=== PATIENT | female | born 1975 | race Caucasian/White ===

== ENCOUNTER → 2016-04-28 | Outpatient (CLI) | payer BC ==
[~2016-04-28] MED LIST: METO1TAB31 PO; MULT-506 PO; RANITAB33 PO
== END | disposition home or self-care (01) ==
LOC: C.PAPS 14:22
PROVIDERS: ATTEND Obstetrics & Gynecology
DX: Z01.419 Encounter for gynecological examination (general) (routine) without abnormal findings (principal)

== ENCOUNTER → 2017-02-09 | Outpatient (CLI) | payer BC ==
[~2017-02-09] MED LIST changes: +METO-478 PO; -METO1TAB31 PO
--- NOTE | 2017-02-09 13:38 | MAMMOGRAPHY REPORT ---
BILATERAL DIGITAL DIAGNOSTIC MAMMOGRAM TOMOSYNTHESIS WITH CAD AND TARGETED BILATERAL ULTRASOUND: 02/09 CLINICAL HISTORY: The patient reports itching involving her right breast which lasted for approximate ly 2 weeks. She was started on a cream and has not had any further itching for approximately one wee k. She also reports generalized fullness of her right breast which has somewhat subsided. She denie s any focal palpable lumps, erythema of the skin, nipple discharge, or other complaints. TECHNIQUE: Breast tomosynthesis in addition to standard 2D mammography was performed. Current study was also evaluated with a Computer Aided Detection (CAD) system. Bilateral CC and MLO 2-D and tomosy nthesis images were obtained. COMPARISON: Comparison is made to exams dated: 11/06/2014 ultrasound, 11/06/2014 mammogram, and 01/24/20 mammogram - [facility]. BREAST COMPOSITION: The tissue of both breasts is heterogeneously dense, which may obscure small mas ses. FINDINGS: There are no suspicious masses, calcifications, or areas of architectural distortion noted in either breast mammographically. There has been no significant interval change compared to prior e xams. An asymmetry is seen within the left superior posterior breast overlying the left pectoralis m uscle, which likely represents normal fibroglandular tissue although ultrasound was performed. Targeted ultrasound was performed of the area of prior right breast itching pointed out by the patien t in the right lower inner quadrant. Sonographically normal tissue is seen in this region, without e vidence of a mass or other suspicious sonographic abnormality. Targeted ultrasound was also performe d of the region of the mammographic asymmetry in the left breast. Normal fibroglandular tissue is se en within the left axillary tail region, which corresponds with the mammographic asymmetry. No suspi cious masses are evident. IMPRESSION: ACR BI-RADS CATEGORY 2: BENIGN, TARGETED ULTRASOUND ACR BI-RADS CATEGORY 2: BENIGN No suspicious mammographic or sonographic abnormality to explain right breast fullness and right leona st itching. There is no mammographic or targeted sonographic evidence of malignancy. Recommend clin ical follow-up for right breast symptoms, and recommend routine bilateral screening mammograms in one year. The patient has been verbally notified of the results. Approximately 10% of breast cancers are not detected with mammography. A negative mammographic report should not delay biopsy if a clinically suggestive mass is present. Fatou Funez M.D. ah/:02/09/2017 11:43:57 [employer]: Krys MARQUES(R)(M), [facility] letter sent: Normal 1/2 BI-RADS Code: ACR BI-RADS Category 2: Benign Ultrasound BI-RADS: ACR BI-RADS Category 2: Benign
== END | disposition home or self-care (01) ==
LOC: C.MAMM 09:24
PROVIDERS: ATTEND Physician Assistant
DX: N64.59 Other signs and symptoms in breast (principal)

== ENCOUNTER → 2017-06-22 | Outpatient (CLI) | payer OTHER | END | disposition home or self-care (01) | LOC: C.PAPS 14:03 | PROVIDERS: ATTEND Obstetrics & Gynecology | DX: Z12.4 Encounter for screening for malignant neoplasm of cervix (principal) ==

== ENCOUNTER 2020-11-14 18:05 | Observation (INO) ==
--- NOTE | 2020-11-14 19:09 | Emergency Department Note ---
Impression & Plan Abdominal pain, Sinus tachycardia, Anxiety ED Provider Note NAME: BRENDON TRINIDAD AGE: 45 SEX: F : 1975 ARRIVES VIA: Walk-In INFORMANT: Patient, ED PROVIDER(S): Khalif Almodovar MD Chief Complaint: Abdominal pain HPI: Patient was seen earlier today due to concern for right lower quadrant pain. This had started around 5-5 30 this morning with associated diarrhea as well as pain that would radiate across the lower abdomen. The patient has not had any nausea or vomiting. Patient denies any chest pains or shortness of breath. The patient was recently seen earlier today where the patient did have blood work completed along with an ultrasound. There was a presumptive hemorrhagic cyst as the patient did have some complex free fluid in the lower abdomen. Blood work had already been obtained earlier today. The patient had a white count of 11.5 with a normal H&H and platelet count. Kidney function was unremarkable. Urinalysis showed blood and ketones. The patient had refused a CAT scan at her prior visit but did return as the patient had worsening pain. Patient did take some Ativan prior to arrival. Patient does state that she has a shellfish allergy but believes that she did have a CAT scan in 2005 with IV contrast which she tolerated without any issues. ROS: See HPI for pertinent positives and negatives. A total of 10 systems were reviewed and otherwise negative. Past medical history: See below Surgical history: See below Social history: See below Physical Exam: GENERAL: Mildly uncomfortable in appearance, NAD, wearing glasses, wearing a mask, non-toxic. Anxious in appearance. EYE EXAM: Normal conjunctiva. PERRL, no anisocoria and EOM's grossly intact w/o pain. NECK: Supple, no nuchal rigidity, no adenopathy, non-tender. No signs of meningismus. LUNGS: Clear to auscultation. Normal chest wall mechanics. HEART: Cardiac and regular, no MRG. ABDOMEN: Abdomen soft, diffuse lower abdominal pain, right lower quadrant tenderness to palpation present, negative obturators and psoas, normo-active bowel sounds, no masses, no rebound or guarding. BACK: No CVA TTP. SKIN: No rashes and no bruising. UPPER EXTREMITIES: Upper extremities are grossly normal. LOWER EXTREMITIES: Grossly normal, no edema. NEURO EXAM: A&O x3, cranial nerves II-XII grossly intact, normal speech, moves all 4 extremities on command w/o issue. Differential diagnoses: Appendicitis, ovarian cyst, ovarian torsion, ectopic , TOA, PID, infections, diverticulitis, UTI, obstruction, mesenteric ischemia, aortic pathology, inflammatory bowel disease, renal colic, PUD, pancreatitis, biliary pathology, hernia, volvulus, constipation, as well as other pathologies. Course: Patient was seen and evaluated the bedside. Full history physical exam was performed. Imaging Studies: CT abdomen pelvis showed concern for prominent tubular bowel loop which could represent terminal ileum versus enlarged appendix. Possible ileus. No abscess but trace fluid noted. Unremarkable uterus. Left 1.4 cm adnexal hypodensity which may be an ovarian cyst. Cardiac monitoring: An order was placed for continuous cardiac monitoring. The monitor shows a rate of 105 with tachycardic and regular rhythm. MDM: Patient was seen due to concern for persistent or worsening abdominal pain. The patient already had blood work completed earlier today. The patient did have an IV established and a CAT scan completed. CAT scan did show concern for possible appendicitis versus enlargement of the terminal ileum. Patient was reassessed and patient still has right lower quadrant pain. Given this I did speak the on- call general surgery team Thomas Felix PA-C. She was evaluated. Mefoxin was ordered. The patient was admitted to the surgical service. Covid negative. Past Med/Surg History Medical History Anxiety Classic migraine with aura Endometrioma Female infertility Ovarian cyst right, seen since 2017, likely endometrioma Supraventricular tachycardia Thyroid nodule Surgical History History of laparoscopy diagnostic gynecologic with biopsy History of oral surgery tooth extraction History of tonsillectomy Family History Father Squamous cell carcinoma Grandmother (Maternal) Colorectal cancer Mother Endometriosis Basal cell adenocarcinoma Grandfather (Maternal) Colorectal cancer Aunt Breast cancer paternal Grandmother (Paternal) Breast cancer Denies family history of Ovarian cancer Social History Smoking Status: Never smoker Hx Alcohol Use: No Feels Safe at Home: Yes Allergies Allergies Allergy/AdvReac Type Severity Reaction Status Date / Time azithromycin Allergy Mild Hives Verified 11/14/20 14:05 Penicillins Allergy Mild HIVES Verified 11/14/20 14:05 lidocaine Allergy Unknown Unknown Verified 11/14/20 14:05 mepivacaine Allergy Unknown TACHYCARDIA Verified 11/14/20 14:05 ,SOB shellfish derived Allergy Unknown Unknown Verified 11/14/20 14:05 Home Meds Home Medications Medication Instructions Recorded Confirmed fluticasone propionate 50 1 spray INTNAS DAILY 05/27/19 11/14/20 mcg/actuation nasal spray,suspension lorazepam 0.5 mg tablet 0.5 mg PO HS PRN 05/27/19 11/14/20 metoprolol succinate 25 mg 25 mg PO UD 05/27/19 11/14/20 tablet,extended release 24 hr multivitamin (Daily Multi-Vitamin) 1 tab PO DAILY 05/27/19 11/14/20 famotidine 20 mg tablet (Pepcid) 20 mg PO DAILY 11/14/20 11/14/20 ferrous sulfate 142 mg (45 mg 142 mg PO DAILY 11/14/20 11/14/20 iron) tablet,extended release (Slow Fe) simethicone 80 mg chewable tablet 80 mg PO BID PRN 11/14/20 11/14/20 Results & Data (ED) Vital Signs Vital Signs - 24 hr 11/14/20 18:09 11/14/20 19:42 11/14/20 22:07 Temperature 36.7 C Temperature Source Temporal Artery Scan Pulse Rate 115 H Pulse Rate [Right Finger] 113 H Pulse Rate from SpO2 Sensor Respiratory Rate 18 18 Respiratory Effort / Characteristics Non-Labored Spontaneous Respiratory Depth Normal Blood Pressure 123/84 Blood Pressure [Right Arm] 127/81 Blood Pressure Mean 97 Blood Pressure Mean [Right Arm] 96 Blood Pressure Position Sitting Blood Pressure Position [Right Arm] Sitting Pulse Oximetry 98 98 100 Oxygen Delivery Method Room Air Room Air Room Air Sepsis Recent Fever Within 48 Hours No Sepsis New/Unexplained Change in Mental Status N/A Sepsis Action Taken by Nursing No Action Required 11/15/20 00:29 Temperature Temperature Source Pulse Rate 110 H Pulse Rate [Right Finger] Pulse Rate from SpO2 Sensor 110 H Respiratory Rate 24 Respiratory Effort / Characteristics Respiratory Depth Blood Pressure 128/84 Blood Pressure [Right Arm] Blood Pressure Mean 98 Blood Pressure Mean [Right Arm] Blood Pressure Position Blood Pressure Position [Right Arm] Pulse Oximetry 99 Oxygen Delivery Method Room Air Sepsis Recent Fever Within 48 Hours Sepsis New/Unexplained Change in Mental Status Sepsis Action Taken by Longterm Medications Current Medication List: was personally reviewed by me Laboratory Data Attestation: I reviewed the patient's lab results. Lab Results 11/15/20 Range/Units 00:00 COVID-19 Eval Order Covid19 at [facility] Administered Medications Discontinued Medications Sodium Chloride (Nss 1000ml) 1,000 mls @ 999 mls/hr IV .Q1H1M ONE Stop: 11/14/20 20:33 Last Infusion: 11/14/20 20:42 Dose: 0 mls/hr Documented by: [id number] Admin: 11/14/20 19:41 Dose: 999 mls/hr Documented by: [id number] Lorazepam (Ativan) 1 mg in 2 mls @ 2 mls/min IV NOW STA Stop: 11/14/20 20:26 Last Admin: 11/14/20 21:10 Dose: 2 mls/min Documented by: [id number] Cefoxitin Sodium (Mefoxin) 2,000 mg in 60 mls @ 100 mls/hr IV NOW STA Stop: 11/15/20 00:04 Last Admin: 11/15/20 00:24 Dose: 100 mls/hr Documented by: [id number] Ioversol (Optiray 320 100ml) 93 ml IV ONCE ONE Stop: 11/14/20 22:07 Last Admin: 11/14/20 22:07 Dose: 93 ml Documented by: [id number] Discharge Plan Visit Data Chief Complaint: Fever Stated Complaint: ABD PAIN, FEVER, SEEN EARLIER TODAY ED Provider: Khalif Almodovar Discharge Problem: Abdominal pain, Sinus tachycardia, Anxiety Forms Stand Alone Forms: My [facility] [employer] Prescriptions Prescriptions: No Action fluticasone propionate 50 mcg/actuation spray,suspension 1 spray INTNAS DAILY RF: 0 metoprolol succinate 25 mg tablet extended release 24 hr 25 mg PO UD RF: 0 lorazepam 0.5 mg tablet 0.5 mg PO HS PRN (Reason: Insomnia) RF: 0 multivitamin [Daily Multi-Vitamin] Tablet 1 tab PO DAILY RF: 0 famotidine [Pepcid] 20 mg Tablet 20 mg PO DAILY RF: 0 simethicone [Gas-X] 80 mg Tablet,Chewable 80 mg PO BID PRN (Reason: Gi Upset) RF: 0 Slow Fe 142 mg (45 mg iron) Tablet Extended Release 142 mg PO DAILY RF: 0 Referrals Referrals: Martin Brown, [Primary Care Provider] -
[2020-11-14] MEDS ORDERED: SODIUM CHLORIDE 0.9% 1000ML 1,000 ML IV ONE (19:33)
[2020-11-14] MEDS ORDERED: LORazepam 1 MG/2 ML VIAL IV STA (20:25)
[2020-11-14] MEDS ORDERED: OPTIRAY 320 100ml IV ONE (22:06)
[2020-11-14] MEDS ORDERED: cefOXitin 2,000 MG/60 ML BAG IV STA (23:29)
--- NOTE | 2020-11-15 00:30 | History & Physical Report ---
Date of Service November 15, 2020 Assessment & Plan (1) Abdominal pain: Plan: The cause of patient's abdominal pain has not been ascertained. Certainly this is to be related to a ruptured ovarian cyst or acute appendicitis is on the differential. I discussed the case with my attending Dr. Melvin Ramirez we will proceed as follows: Admit patient to the hospital with plans on performing a diagnostic laparoscopy and possible appendectomy in the morning. I have outlined the risks, benefits, alternatives with the patient and she is agreeable to proceed. Provide analgesics Provide antiemetics Hydration with IV fluids N.p.o. status Administer antibiotics in the form of cefoxitin. The emergency room physician has ordered the first dose of this medication. Patient does note a penicillin allergy which causes rash but she specifically notes that she has taken Keflex in the past and it was able to tolerate this medicine. We will use SCDs for DVT prevention. We will hold chemical means of DVT prevention due to planned surgery Patient be a level 1 full code. History of Present Illness Chief Complaint: Abdominal pain Primary Care Provider: Martin Brown DO This is a 45-year-old female who presented to [facility] secondary abdominal pain. Patient says that the pain began at approximately 5:30 AM on 11/14/2020 which woke her from her sleep. She said the pain was primarily located in the upper abdomen but has since shifted to her lower abdomen most prominent in the right lower quadrant. She says that the pain is worse with certain movements and was exacerbated at times on the trip to the emergency department. She denies any palliative factors and notes that the pain comes and goes. She has not had any nausea or vomiting. She did feel feverish on the trip into the hospital but notes that she has not ever had a documented fever. She notes that the pain comes and goes in waves and when she does get the pain she has diarrhea along with the pain. She denies any hematochezia. Patient does note that she did have prior abdominal surgery in the form of a diagnostic laparoscopy due to endometriosis. Because of the pain the patient did present to the emergency department the morning of 11/14/2020. During this time she had labs including a CBC where her white blood cell count was 12.5. Her hemoglobin, hematocrit, and platelet count were noted to be within the normal range. Patient did have a chemistry profile where her sodium, potassium, BUN, and creatinine were all within normal range. A test was performed and was noted to be negative. Patient also had a urinalysis which was not indicative of infection. Patient also had a transvaginal and pelvic ultrasound that showed small amount of echogenic and complex fluid in the pelvis which was felt to be potentially due to a ruptured cyst. Because of these findings the patient was discharged home. The patient's pain continued as described above so she did represent to the emergency department. In the emergency department the patient had imaging which I independently reviewed. I also independently reviewed the imaging and labs from her previous emergency department visit. A CT scan of the abdomen and pelvis utilizing IV contrast did not identify a normal-appearing appendix. Patient was noted to have a prominent tubular bowel loop in the right pelvis which measured approximately 11 mm. This appeared to be continuous with the cecum and was difficult determine if this represented the terminal ileum versus an enlarged appendix. There is some trace free fluid in the pelvis and cul-de-sac and patient was noted to have a 1.4 cm left adnexal hypodensity. Repeat labs have not been obtained during this ER visit. Covid test has been performed and was noted to be negative. At the time of my interview the patient was resting in bed. She was in no distress. Allergies Allergy/AdvReac Type Severity Reaction Status Date / Time azithromycin Allergy Mild Hives Verified 11/14/20 14:05 Penicillins Allergy Mild HIVES Verified 11/14/20 14:05 lidocaine Allergy Unknown Unknown Verified 11/14/20 14:05 mepivacaine Allergy Unknown TACHYCARDIA Verified 11/14/20 14:05 ,SOB shellfish derived Allergy Unknown Unknown Verified 11/14/20 14:05 Home Medications Medication Instructions Recorded Confirmed Type fluticasone propionate 50 1 spray INTNAS DAILY 05/27/19 11/14/20 History mcg/actuation nasal spray,suspension lorazepam 0.5 mg tablet 0.5 mg PO HS PRN 05/27/19 11/14/20 History metoprolol succinate 25 mg 25 mg PO UD 05/27/19 11/14/20 History tablet,extended release 24 hr multivitamin (Daily Multi-Vitamin) 1 tab PO DAILY 05/27/19 11/14/20 History famotidine 20 mg tablet (Pepcid) 20 mg PO DAILY 11/14/20 11/14/20 History ferrous sulfate 142 mg (45 mg 142 mg PO DAILY 11/14/20 11/14/20 History iron) tablet,extended release (Slow Fe) simethicone 80 mg chewable tablet 80 mg PO BID PRN 11/14/20 11/14/20 History Past Med/Surg History Medical History Anxiety Classic migraine with aura Endometrioma Female infertility Ovarian cyst right, seen since 2017, likely endometrioma Supraventricular tachycardia Thyroid nodule Surgical History History of laparoscopy diagnostic gynecologic with biopsy History of oral surgery tooth extraction History of tonsillectomy Family History Father Squamous cell carcinoma Grandmother (Maternal) Colorectal cancer Mother Endometriosis Basal cell adenocarcinoma Grandfather (Maternal) Colorectal cancer Aunt Breast cancer paternal Grandmother (Paternal) Breast cancer Denies family history of Ovarian cancer Social History Smoking Status: Never smoker Hx Alcohol Use: No Hx Substance Use: No Preferred Language: Mexican Communication Ability: Effective Shrink Pit Supervisor Required: No Beliefs That Will Affect Care: None Current Living Situation: Family Feels Safe at Home: Yes Safety Concerns: Feels Safe At This Time Assistive Devices: Glasses Review of Systems Constitutional: no fever and no chills Eyes: no diplopia Ear, Nose, Mouth, Throat: no ear pain and no sore throat Respiratory: no cough and no dyspnea Cardiovascular: no chest pain Gastrointestinal: + abdominal pain and + diarrhea/loose stools; no nausea and no vomiting Genitourinary: no dysuria Musculoskeletal: no back pain Integumentary: no rash Neurologic: no localized weakness Psychiatric: + anxiety Physical Exam Constitutional: well developed, well nourished and + thin; no acute distress Eyes: no conjunctival abnormality ENMT: Ears: no hearing impairment Mouth: no oropharynx abnormality Neck: trachea midline Respiratory: normal respiratory effort, lungs clear to auscultation Cardiovascular: Rate/Rhythm: regular rate, regular rhythm and + tachycardic Gastrointestinal (Abdomen): Patient's abdomen is soft and nondistended. Bowel sounds are hypoactive. Patient did have pain with palpation in the lower abdomen most prominent in the right lower quadrant. No rebound tenderness was noted. Musculoskeletal: No gross orthopedic abnormalities. No calf tenderness. Skin: no rashes, warm and dry Neurologic: moves all extremities Psychiatric: A+Ox3, euthymic affect Results & Data Results & Data ([facility]) Vital Signs (Past 12 Hours) Vital Signs Temp Pulse Pulse Resp BP BP Pulse Ox 11/14/20 22:07 113 H 18 127/81 100 11/14/20 19:42 98 11/14/20 18:09 36.7 C 115 H 18 123/84 98 Supervising Physician Co-Signing Physician Notes I personally saw and evaluated the patient with Stew Felix PA-C and agree with the assessment and plan. 45 yo female with acute appendicitis versus gastroenteritis versus ovarian cyst -CT images and results reviewed in person with our radiology department -She certainly has an abnormal appendix and the worst of her pain is in the RLQ -Will proceed with diagnostic laparoscopy, possible appendectomy, possible open -Consent obtained, risks discussed including bleeding, infection, leak, abscess PG Care Time/CCT Total # of Minutes Spent Total Time Spent with Patient: Total time spent is greater than 50% in coordination of care (as documented) at patient's floor/unit and/or counseling patient: Coding Level of Care Code INT OBSERVATION CARE 70M LVL 3 Diagnoses Abdominal pain R10.9 Abdominal location: unspecified location (1) Abdominal pain Abdominal location: unspecified location Qualified Code(s): R10.9 - Unspecified abdominal pain
[2020-11-15] MEDS ORDERED: MoRPHine SULFATE 2 MG/ML CARP IV PRN ×2 (02:27→15:18)
[2020-11-15] MEDS: LACTATED RINGER'S 1,000 ML IV SCH ×2 (02:40→15:38)
[2020-11-15] MEDS: ONDANSETRON INJ 2 MG/ML 2 ML VIAL IV SCH ×4 (02:41→20:23)
[2020-11-15] MEDS: cefOXitin 2,000 MG in DEXTROSE 5% 50 ML IV SCH ×4 (05:16→23:30)
[2020-11-15 05:36] LABS: Basophils # (auto) 0.01 K/uL (0-0.2); Basophils % (auto) 0.1 %; Hematocrit (blood only) 39.9 % (37-47); Hemoglobin 13.9 g/dL (12.0-16.0); Immature Granulocytes # (auto) 0.03 K/uL (0.00-0.02); Immature Granulocytes % (auto) 0.2 %; Lymphocytes # (auto) 0.97 K/uL (1.2-3.4); Mean Corpuscular Hemoglobin 32.7 pg (25-34); Mean Corpuscular Volume 93.9 fL (80-100); Mean Platelet Volume 9.8 fL (7.4-10.4); Monocytes # (auto) 0.92 K/uL (0.11-0.59); Monocytes % (auto) 4.8 %; Neutrophils # (auto) 17.38 K/uL (1.4-6.5); Neutrophils % (auto) 89.9 %; Platelet Count 147 K/uL (130-400); RDW Standard Deviation 47.6 fL (36.4-46.3); Red Blood Count 4.25 M/uL (4.2-5.4); White Blood Count 19.31 K/uL (4.8-10.8)
[2020-11-15 05:48] LABS: Mean Corpuscular Hgb Conc 34.8 g/dL (32-36)
--- NOTE | 2020-11-15 05:54 | Communication Note ---
Date of Service: November 15, 2020 Patient revisited this morning. She notes that since admission from the ER her abdominal pain has improved and is not nearly as severe as what she noted at time of admission. At the time of my exam she was nearly pain-free. Patient has been afebrile overnight. Repeat labs have been checked and her white blood cell count is now 19,000. She does complain of innumerable episodes of watery diarrhea. I did question her about recent antibiotic use which she denies prior to hospitalization. She also denies eating any poorly or undercooked food. She has not been in close proximity to any individuals with similar symptoms. In light of her symptomatology we will check a stool for C. difficile as well as a stool culture to help further delineate the cause of her symptoms. Dr. Ramirez will evaluate further this morning.
[2020-11-15 05:57] LABS: BUN Creatinine Ratio 5.7 (10-20); Calcium 8.8 mg/dl (8.5-10.1); Creatinine Clr Calc Pharmacy 42.7 ml/min; Est GFR (African American) 53.3 ml/min; Potassium 3.8 mmol/L (3.5-5.1)
[2020-11-15] MEDS: METOPROLOL SUCC 25MG EXT REL TAB PO SCH ×2 (08:25→20:24)
[2020-11-15] MEDS: FLUTICASONE PROPIONATE NA SPR 16 GM BTL SCH (08:26)
--- NOTE | 2020-11-15 09:29 | CT Scan Report ---
CT OF THE ABDOMEN AND PELVIS WITH CONTRAST CLINICAL HISTORY: lower ab pain; ?ruptured cyst COMPARISON STUDY: CT of the abdomen and pelvis July 14, 2014. Pelvic ultrasound November 14, 2020 at 1:19 PM. TECHNIQUE: Following IV administration of 93 mL of Optiray, axial images of the abdomen and pelvis we re obtained from the lung bases to the proximal femurs. Images were reviewed in the axial, sagittal, and coronal planes. IV contrast was administered without complication. Automated exposure control wa s utilized for the study. A dose lowering technique was utilized adhering to the principles of ALARA . CT DOSE: 292.12 mGy.cm FINDINGS: Lung bases are unremarkable. No pneumatosis, free air or portal venous gas is present. The liver, spleen, adrenal glands, kidneys and pancreas are normal. There is no evidence for a bowel obst ruction. The mid to distal small bowel and the colon are fluid-filled. Note is made of a tubular stru cture within the right lower quadrant on image 297 of 436 which appears to be blind ending. This favo rs the appendix and measures 1.4 cm in caliber. This has submucosal fat deposition. There is minimal adjacent stranding. No free air or abscess is present. Major vasculature is patent. IMPRESSION: 1. Tubular blind ending structure within the right lower quadrant which measures 1.4 cm in caliber. T his reflects an abnormal appendix with submucosal fat deposition. Minimal adjacent stranding. Chronic ity of this finding is unclear however acute appendicitis cannot be excluded. Findings discussed with Dr. Ramirez at time of dictation. 2. Fluid-filled small and large bowel suggestive of a diarrheal state. ACT 112: Negative or not required by law. Electronically signed by: Flo Lamas M.D. 11/15/2020 9:27 AM
[2020-11-15] MEDS ORDERED: fentaNYL citrate 100 MCG/2 ML VIAL ONE (11:20)
[2020-11-15] MEDS ORDERED: MIDAZOLAM HCL 1 MG/ML 2ML VIAL ONE (11:20)
[2020-11-15] MEDS ORDERED: ATROPINE SULFATE 0.1 MG/ML 10ML SYR IV PRN (11:54)
[2020-11-15] MEDS ORDERED: fentaNYL citrate 100 MCG/2 ML VIAL IV PRN (11:54)
[2020-11-15] MEDS ORDERED: ePHEDrine sulfate 50 MG/ML AMP IV PRN (11:54)
[2020-11-15] MEDS ORDERED: ONDANSETRON INJ 2 MG/ML 2 ML VIAL IV PRN (11:54)
--- NOTE | 2020-11-15 11:58 | Anesthesiology Consultation ---
Date of Service November 15, 2020 Assessment & Plan (1) Encounter for pre-operative examination: Chart Review Chart Review: Acceptable Risk for Surgery and Patient NOT seen in Pre Admission Testing Consults Requested none ASA ASA2 Proposed Anesthesia Anesthesia Type: General Risk / Benefits Reviewed With: PT / POA / Parent / Guardian, Accepts Plan and Informed Consent Obtained History Surgery Operation Date: 11/15/20 08:20 Proposed Procedures p Diagnostic Laparoscopy, Laparoscopic Appendectomy - Melvin Ramirez, Height/Weight Height: 5 ft 3 in Weight: 60 kg Allergies Allergy/AdvReac Type Severity Reaction Status Date / Time azithromycin Allergy Mild Hives Verified 11/14/20 14:05 Penicillins Allergy Mild HIVES Verified 11/14/20 14:05 lidocaine Allergy Unknown Unknown Verified 11/14/20 14:05 mepivacaine Allergy Unknown TACHYCARDIA Verified 11/14/20 14:05 ,SOB shellfish derived Allergy Unknown Unknown Verified 11/14/20 14:05 Medications Home Medications Medication Instructions Recorded Confirmed Last Taken fluticasone propionate 50 1 spray INTNAS DAILY 05/27/19 11/14/20 Unknown mcg/actuation nasal spray,suspension lorazepam 0.5 mg tablet 0.5 mg PO HS PRN 05/27/19 11/14/20 11/14/20 metoprolol succinate 25 mg 25 mg PO UD 05/27/19 11/14/20 11/14/20 tablet,extended release 24 hr multivitamin (Daily Multi-Vitamin) 1 tab PO DAILY 05/27/19 11/14/20 11/14/20 famotidine 20 mg tablet (Pepcid) 20 mg PO DAILY 11/14/20 11/14/20 11/14/20 ferrous sulfate 142 mg (45 mg 142 mg PO DAILY 11/14/20 11/14/20 11/14/20 iron) tablet,extended release (Slow Fe) simethicone 80 mg chewable tablet 80 mg PO BID PRN 11/14/20 11/14/20 11/14/20 Active Medications Generic Name Dose Route Start Last Admin Trade Name Freq PRN Reason Stop Dose Admin Fluticasone Propionate 1 sprays 11/15/20 09:00 11/15/20 08:26 Fluticasone Propionate Na Spr 16 Gm Btl NA 12/15/20 08:59 Not Given DAILY JINNY Lactated Ringer's 1,000 mls @ 100 mls/hr 11/15/20 02:27 11/15/20 02:40 Lr IV 12/15/20 02:26 100 mls/hr .Q10H JINNY Administration Cefoxitin Sodium 2,000 mg/ 60 mls @ 100 mls/hr 11/15/20 06:00 11/15/20 05:54 Dextrose IV 11/25/20 05:59 Infused Q6H JINNY Infusion Metoprolol Succinate 12.5 mg 11/15/20 09:00 11/15/20 08:25 Metoprolol Succ 25mg Ext Rel Tab PO 12/15/20 08:59 12.5 mg QAM JINNY Administration Ondansetron HCl 4 mg 11/15/20 02:27 11/15/20 08:00 Ondansetron Inj 2 Mg/Ml 2 Ml Vial IV 12/15/20 02:26 Not Given Q6H JINNY NPO Date Last Intake of Fluids: 11/14/20 Time Last Intake of Fluids: 21:00 Date Last Intake of Solids: 11/13/20 Time Last Intake of Solids: 17:00 Past Medical History Medical History Anxiety Classic migraine with aura Endometrioma Female infertility Ovarian cyst right, seen since 2017, likely endometrioma Supraventricular tachycardia Thyroid nodule Exercise / Class Metabolic Activity II 4-5 Yardwork/Stairs/Walk up hill Past Family History Family History Father Squamous cell carcinoma Grandmother (Maternal) Colorectal cancer Mother Endometriosis Basal cell adenocarcinoma Grandfather (Maternal) Colorectal cancer Aunt Breast cancer paternal Grandmother (Paternal) Breast cancer Denies family history of Ovarian cancer Past Surgical History Surgical History History of laparoscopy diagnostic gynecologic with biopsy History of oral surgery tooth extraction History of tonsillectomy Past Anesthesia History No Hx of Anesthesia Complications and No Family Hx of Anesthesia Complications History of PONV No Hx of PONV and No Hx of Motion Sickness Social History Smoking Status: Never smoker Hx Alcohol Use: No Hx Substance Use: No Physical Exam Vital Signs Last Vital Signs Temp 36.9 C 11/15/20 11:53 Pulse 101 H 11/15/20 11:53 Resp 20 11/15/20 11:53 BP 134/88 11/15/20 11:53 Pulse Ox 99 11/15/20 11:53 ENMT Mouth: no dentition abnormality Thyromental Distance: > or= 3.5 Finger Breadths Mallampati Class: II Neck normal visual inspection Respiratory normal respiratory effort Auscultation: lungs clear to auscultation bilaterally Cardiovascular Rate/Rhythm: regular rate and regular rhythm Psychiatric Orientation: alert Testing Laboratory Results 11/15/20 05:26 11/15/20 05:26
[2020-11-15] MEDS ORDERED: BUPIVACAINE 0.25% 30 ML VIAL ONE (12:15)
[2020-11-15] MEDS ORDERED: PROPOFOL IV EMULSION 10 MG/ML 20 ML VIAL IV ONE (12:51)
[2020-11-15] MEDS ORDERED: GLYCOPYRROLATE 0.2 MG/ML VIAL ONE (12:51)
[2020-11-15] MEDS ORDERED: DEXAMETHASONE SOD INJ 4 MG/ML VIAL ONE (12:51)
[2020-11-15] MEDS ORDERED: NEOSTIGMINE METHYLSULFATE 1 MG/ML 10ML VIAL ONE (12:51)
[2020-11-15] MEDS ORDERED: ONDANSETRON INJ 2 MG/ML 2 ML VIAL ONE (12:51)
[2020-11-15] MEDS ORDERED: ROCURONIUM BROMIDE 10 MG/ML 5 ML VIAL IV ONE (12:51)
[2020-11-15] MEDS ORDERED: KETOROLAC 30 MG/ML VIAL ONE (13:27)
--- NOTE | 2020-11-15 13:37 | Post Operative Brief Note ---
PG Immediate Post Op with CF Date of Surgery November 15, 2020 Pre & Post Diagnosis Operation Date: 11/15/20 08:20 Pre-Op Diagnosis: ABD PAIN Post-Op Diagnosis: Acute Appendicitis I identified the patient and participated in the time-out.: Yes Procedure Operation Date: 11/15/20 08:20 Actual Procedures p Diagnostic Laparoscopy, Laparoscopic Appendectomy - Melvin Ramirez DO Surgeon Melvin Ramirez DO [employer] Supervisor Mata Higginbotham PA-C Estimated Blood Loss 5 Findings See Below Acutely inflamed, dilated appendix with fibrinous exudate, small amount of purul ent fluid in pelvis Specimens Specimen Description: A) Appendix Drains Park Catheter Anesthesia Type General Complications none Disposition Disposition: Recovery Room
--- NOTE | 2020-11-15 13:42 | Operative Report ---
PG Post Operative Report Pre & Post Diagnosis Operation Date: 11/15/20 08:20 Pre-Op Diagnosis: ABD PAIN Post-Op Diagnosis: Acute Appendicitis I identified the patient and participated in the time-out.: Yes Procedure Operation Date: 11/15/20 08:20 Actual Procedures p Diagnostic Laparoscopy, Laparoscopic Appendectomy - Melvin Ramirez DO Surgeon Melvin Ramirez DO Wrist Liner Mata Higginbotham PA-C Estimated Blood Loss 5 Findings See Below Acutely inflamed, dilated appendix with fibrinous exudate, small amount of purulent fluid in pelvis Specimens Appendix to pathology Drains None Anesthesia Type General Complications none Disposition Disposition: Recovery Room Indications 45 yo female with acute abdominal pain and CT findings concerning for acute appendicitis Description of Procedure The patient was brought to the OR and placed in the supine position and SCD's placed. At this time she underwent general endotracheal anesthesia without incident. At this time a Park catheter was placed under sterile conditions. Her abdomen was prepped and draped in the usual sterile fashion. She was given appropriate pre-operative antibiotics. A timeout was called, the procedure was verified as Diagnostic laparoscopy, possible laparoscopic appendectomy, possible open. Surgical, anesthesia and nursing teams agreed and the procedure was begun. A supraumbilical incision was made using a #11 blade scalpel and carried down to the fascia with a hemostat. The abdomen was then elevated with towel clamps and entered using the Veress needle confirming position using the saline drop test. Pneumoperitoneum was established and 5mm trocar was placed. Laparoscope was introduced. No injury was seen from our entrance to the abdomen. At this time a 5mm suprapubic port and 12mm LLQ port were placed under direct visualization. The patient was placed in Trendelenburg and rotated to the left. At this time the appendix was visualized and the tip was freed and elevated toward the abdominal wall. The appendix appeared inflamed, dilated and edematous. A window was created in the mesoappendix at the base of the appendix. A 45mm purple load stapler was then fired across the base of the appendix which appeared healthy. The mesoappendix was then taken using a 45mm brandon load stapler. The appendix was then placed in an Endocatch bag and removed through the LLQ port site. Staple line was inspected and was intact. Hemostasis was complete. A small amount of purulent fluid was suctioned out of the RLQ and pelvis. The entire abdomen had some reactive inflammation present, including both adnexa. The 12 mm port was then closed at the fascial level using a 0 Vicryl suture using the suture passer. All ports were removed under direct visualization and no bleeding was noted. The abdomen was desufflated and the skin was closed using 4-0 Monocryl in a subcuticular fashion. Sterile dressings were applied. Park catheter was removed. The patient was then awakened from anesthesia having remained stable throughout the entire case and transported to PACU. All needle and sponge counts were correct x 2. The physician office support assistant was present and scrubbed throughout the entire case. He was essential in positioning, prepping and draping the patient, retraction and exposure, driving the laparoscope, closure of the incisions and placement of the dressings. I attest to the content of the Intraoperative Record and any orders documented therein. Any exceptions are noted below.
--- NOTE | 2020-11-15 14:23 | Anesthesiology Progress Note ---
Date of Service November 15, 2020 Anesthesia Post Procedure Vital Signs Vital Signs: Temp Pulse Pulse Pulse Resp BP BP 11/15/20 14:19 36.1 C L 88 15 119/82 11/15/20 14:10 84 16 127/78 11/15/20 14:00 87 16 104/74 11/15/20 13:50 37.2 C 90 14 92/63 L 11/15/20 11:53 36.9 C 101 H 20 134/88 11/15/20 07:48 37.0 C 103 H 16 124/79 11/15/20 03:04 37.2 C 100 H 16 121/76 11/15/20 02:00 100 H 24 114/79 11/15/20 01:00 106 H 24 118/83 11/15/20 00:29 110 H 24 128/84 11/14/20 22:07 113 H 18 127/81 11/14/20 19:42 11/14/20 18:09 36.7 C 115 H 18 123/84 Pulse Ox 11/15/20 14:19 100 11/15/20 14:10 100 11/15/20 14:00 100 11/15/20 13:50 100 11/15/20 11:53 99 11/15/20 07:48 97 11/15/20 03:04 99 11/15/20 02:00 98 11/15/20 01:00 100 11/15/20 00:29 99 11/14/20 22:07 100 11/14/20 19:42 98 11/14/20 18:09 98 Pain Intensity Abdomen: Pain Intensity: 4 Transfer of Care Handoff Completed per policy Notes Mental Status: alert / awake / arousable Patient Amnestic to Procedure: Yes Nausea / Vomiting: adequately controlled Pain: adequately controlled Airway Patency, RR, SpO2: stable & adequate BP & HR: stable & adequate Hydration State: stable & adequate Anesthetic Complications: no major complications apparent
[2020-11-15] MEDS ORDERED: MoRPHine SULFATE 4 MG/ML 1 ML CARP\\VIAL IV PRN (15:18)
[2020-11-16] MEDS: LACTATED RINGER'S 1,000 ML IV SCH ×3 (00:09→19:38)
[2020-11-16] MEDS: ONDANSETRON INJ 2 MG/ML 2 ML VIAL IV SCH ×4 (02:12→19:39)
[2020-11-16] MEDS: cefOXitin 2,000 MG in DEXTROSE 5% 50 ML IV SCH ×3 (06:02→17:23)
[2020-11-16] MEDS: ACETAMINOPHEN 1,000 MG/100 ML VIAL IV PRN ×3 (06:45→23:48)
[2020-11-16 07:44] LABS: Basophils # (auto) 0.01 K/uL (0-0.2); Basophils % (auto) 0.1 %; Hemoglobin 11.4 g/dL (12.0-16.0); Immature Granulocytes # (auto) 0.02 K/uL (0.00-0.02); Immature Granulocytes % (auto) 0.1 %; Lymphocytes # (auto) 0.65 K/uL (1.2-3.4); Lymphocytes % (auto) 4.9 %; Mean Corpuscular Hemoglobin 31.8 pg (25-34); Mean Corpuscular Hgb Conc 34.5 g/dL (32-36); Mean Corpuscular Volume 92.2 fL (80-100); Mean Platelet Volume 10.2 fL (7.4-10.4); Monocytes # (auto) 0.81 K/uL (0.11-0.59); Monocytes % (auto) 6.1 %; Neutrophils # (auto) 11.85 K/uL (1.4-6.5); Neutrophils % (auto) 88.8 %; Platelet Count 126 K/uL (130-400); RDW Coefficient of Variation 14.5 % (11.5-14.5); RDW Standard Deviation 48.9 fL (36.4-46.3); Red Blood Count 3.58 M/uL (4.2-5.4); White Blood Count 13.34 K/uL (4.8-10.8)
[2020-11-16] MEDS: METOPROLOL SUCC 25MG EXT REL TAB PO SCH ×2 (08:14→21:43)
[2020-11-16] MEDS: FLUTICASONE PROPIONATE NA SPR 16 GM BTL SCH (08:14)
[2020-11-16 08:39] LABS: BUN Creatinine Ratio 8.1 (10-20); Calcium 8.6 mg/dl (8.5-10.1); Est GFR (African American) 72.3 ml/min; Est GFR (Non-African American) 62.4 ml/min; Potassium 3.5 mmol/L (3.5-5.1)
--- NOTE | 2020-11-16 09:11 | Surgery Progress Note ---
Date of Service November 16, 2020 Assessment & Plan (1) Acute appendicitis: Plan: POD 1 lap appy increase diet WBC 13 likely d/c later today Admission and Anticipated Discharge Date Admission Date: November 15, 2020 Supervising Physician Co-Signing Physician Notes Doing well D/c home today with 7 day course Cipro/Flagyl F/u in 2 weeks Subjective feels much better, diarrhea also subsided Physical Exam Gastrointestinal (Abdomen): Inspection/Auscultation: + abdominal surgical incision (dressings intact); abdomen not distended Percussion/Palpation: abdomen soft Results & Data ([facility]) Vital Signs (Past 12 Hours) Vital Signs Temp Pulse Resp BP Pulse Ox 11/16/20 08:13 37.3 C 83 16 130/80 97 11/16/20 03:50 36.6 C 88 16 105/70 97 11/15/20 23:30 36.9 C 88 16 97/54 L 97 PG Care Time/CCT Total # of Minutes Spent Total Time Spent with Patient: Total time spent is greater than 50% in coordination of care (as documented) at patient's floor/unit and/or counseling patient: Coding Level of Care Code None Diagnoses Acute appendicitis K35.80
[2020-11-17] MEDS: cefOXitin 2,000 MG in DEXTROSE 5% 50 ML IV SCH ×3 (00:42→12:17)
[2020-11-17] MEDS: ONDANSETRON INJ 2 MG/ML 2 ML VIAL IV SCH ×2 (02:21→07:53)
[2020-11-17] MEDS: LACTATED RINGER'S 1,000 ML IV SCH (06:00)
[2020-11-17] MEDS: FLUTICASONE PROPIONATE NA SPR 16 GM BTL SCH (08:55)
[2020-11-17] MEDS: METOPROLOL SUCC 25MG EXT REL TAB PO SCH (08:58)
[2020-11-17] MEDS ORDERED: LOPERAMIDE HCL 2 MG CAP PO PRN (10:00)
[2020-11-17] MEDS ORDERED: CHOLESTYRAMINE LIGHT 4 GM PKT PO SCH (10:00)
[2020-11-17] MEDS ORDERED: oxyCODONE HCL IR 5 MG TAB (IMMEDIATE RELEASE) PO PRN (10:01)
--- NOTE | 2020-11-17 10:04 | Surgery Progress Note ---
Date of Service November 17, 2020 Assessment & Plan (1) Acute appendicitis: Plan: -Stop PO pain meds -Start Imodium -GI consult at patient's request -Regular diet Admission and Anticipated Discharge Date Admission Date: November 15, 2020 Subjective Pt seen and examined. Afebrile. Still with some diarrhea. Had a large BM. Physical Exam Gastrointestinal (Abdomen): Inspection/Auscultation: + abdominal surgical incision (dressings intact); abdomen not distended Percussion/Palpation: abdomen soft Results & Data ([facility]) Vital Signs (Past 12 Hours) Vital Signs Temp Pulse Pulse Resp BP Pulse Ox 11/17/20 07:46 36.7 C 80 16 129/84 98 11/16/20 23:00 36.8 C 81 16 128/84 98 PG Care Time/CCT Total # of Minutes Spent Total Time Spent with Patient: Total time spent is greater than 50% in coordination of care (as documented) at patient's floor/unit and/or counseling patient: Coding Level of Care Code None Diagnoses Acute appendicitis K35.80
[2020-11-17 10:24] LABS: Basophils # (auto) 0.01 K/uL (0-0.2); Basophils % (auto) 0.1 %; Eosinophils # (auto) 0.01 K/uL (0-0.5); Eosinophils % (auto) 0.1 %; Hematocrit (blood only) 33.8 % (37-47); Hemoglobin 11.2 g/dL (12.0-16.0); Immature Granulocytes # (auto) 0.01 K/uL (0.00-0.02); Immature Granulocytes % (auto) 0.1 %; Lymphocytes # (auto) 0.48 K/uL (1.2-3.4); Lymphocytes % (auto) 4.7 %; Mean Corpuscular Hemoglobin 31.5 pg (25-34); Mean Corpuscular Volume 95.2 fL (80-100); Mean Platelet Volume 9.9 fL (7.4-10.4); Monocytes # (auto) 0.86 K/uL (0.11-0.59); Monocytes % (auto) 8.5 %; Neutrophils # (auto) 8.78 K/uL (1.4-6.5); Neutrophils % (auto) 86.5 %; Platelet Count 134 K/uL (130-400); RDW Coefficient of Variation 14.4 % (11.5-14.5); RDW Standard Deviation 50.2 fL (36.4-46.3); Red Blood Count 3.55 M/uL (4.2-5.4); White Blood Count 10.15 K/uL (4.8-10.8)
[2020-11-17 10:31] LABS: Mean Corpuscular Hgb Conc 33.1 g/dL (32-36)
[2020-11-17 10:43] LABS: BUN Creatinine Ratio 8.4 (10-20); Calcium 8.4 mg/dl (8.5-10.1); Creatinine Clr Calc Pharmacy 88.6 ml/min; Est GFR (African American) 123.9 ml/min; Est GFR (Non-African American) 106.9 ml/min; Potassium 3.7 mmol/L (3.5-5.1)
--- NOTE | 2020-11-17 12:09 | Gastrointestinal Consultation ---
Date of Consultation November 17, 2020 Assessment & Plan (1) Acute diarrhea: Likely acute enteritis which could be related to inflammatory reaction from the underlying acute appendicitis or just simple viral infection. Her stool studies are negative. This should recover soon spontaneously. Can go home on Cipro/Flagyl course. PRN Imodium. Iron studies requested. Colonoscopy electively as OP in 6 weeks. Encourage ambulation. She will contact me if she does not improve in a week. Recall GI if needed. (2) Acute appendicitis: History of Present Illness Reason for Consultation: Diarrhea Attending Physician: Melvin Ramirez DO History of Present Illness 45 years old female patient with no significant medical comorbiods presented to the hospital with diarrhea and lower abdominal pain, initially though it was an ovarian cyst however CT scan showed acute appendicitis and underwent Lap appendectomy, was doing well post OP however yesterday her diarrhea recurred, water, many episodes, profuse. Denies any abdominal pain, nausea or vomiting, no melena. Noticed bright red blood spot once. Her usual BM is every 2 days so has baseline constipation. No FHx of IBD, grandfather had colon cancer at age 90. Patient never had a colonoscopy. She was recently found with mild anemia which was related to her menstrual blood loss. Allergies Allergy/AdvReac Type Severity Reaction Status Date / Time azithromycin Allergy Mild Hives Verified 11/14/20 14:05 Penicillins Allergy Mild HIVES Verified 11/14/20 14:05 lidocaine Allergy Unknown Unknown Verified 11/14/20 14:05 mepivacaine Allergy Unknown TACHYCARDIA Verified 11/14/20 14:05 ,SOB shellfish derived Allergy Unknown Unknown Verified 11/14/20 14:05 Home Medications Medication Instructions Recorded Confirmed Type fluticasone propionate 50 1 spray INTNAS DAILY 05/27/19 11/14/20 History mcg/actuation nasal spray,suspension lorazepam 0.5 mg tablet 0.5 mg PO HS PRN 05/27/19 11/14/20 History metoprolol succinate 25 mg 25 mg PO UD 05/27/19 11/14/20 History tablet,extended release 24 hr multivitamin (Daily Multi-Vitamin) 1 tab PO DAILY 05/27/19 11/14/20 History famotidine 20 mg tablet (Pepcid) 20 mg PO DAILY 11/14/20 11/14/20 History ferrous sulfate 142 mg (45 mg 142 mg PO DAILY 11/14/20 11/14/20 History iron) tablet,extended release (Slow Fe) simethicone 80 mg chewable tablet 80 mg PO BID PRN 11/14/20 11/14/20 History oxycodone 5 mg tablet 5 - 10 mg PO Q4H #15 tab 11/15/20 Rx ciprofloxacin HCl 500 mg tablet 500 mg PO BID #14 tab 11/16/20 Rx metronidazole 500 mg tablet 500 mg PO TID #20 tab 11/16/20 Rx (Flagyl) Patient History Medical History (Updated 11/17/20 @ 12:15 by Pepper Marks MD) Anxiety Classic migraine with aura Endometrioma Female infertility Ovarian cyst right, seen since 2017, likely endometrioma Supraventricular tachycardia Thyroid nodule Surgical History (Updated 11/16/20 @ 09:33 by Nuria Hill RN) History of laparoscopic appendectomy (11/15/20) Diagnostic Laparoscopy, Laparoscopic Appendectomy Dr. Ramirez 11-15-2020 History of laparoscopy diagnostic gynecologic with biopsy History of oral surgery tooth extraction History of tonsillectomy Family History Father Squamous cell carcinoma Grandmother (Maternal) Colorectal cancer Mother Endometriosis Basal cell adenocarcinoma Grandfather (Maternal) Colorectal cancer Aunt Breast cancer paternal Grandmother (Paternal) Breast cancer Denies family history of Ovarian cancer Social History Smoking Status: Never smoker Hx Alcohol Use: No Hx Substance Use: No Preferred Language: British Communication Ability: Effective Pulverizer Feeder Required: No Beliefs That Will Affect Care: None Current Living Situation: Family Feels Safe at Home: Yes Assistive Devices: None Review of Systems Constitutional: no fever, no chills, no fatigue and no weight loss Eyes: no eye pain and no worsening vision Ear, Nose, Mouth, Throat: no tinnitus, no dizziness, no nasal discharge and no epistaxis Respiratory: no cough, no dyspnea, no dyspnea on exertion and no wheezing Cardiovascular: no chest pain, no orthopnea, no palpitations and no edema Gastrointestinal: as per Subjective / HPI Genitourinary: no dysuria, no urinary frequency, no urinary incontinence and no hematuria Musculoskeletal: no stiffness and no myalgia Neurologic: no localized weakness, no paralysis, no tremor(s) and no headache(s) Endocrine: no polydipsia and no polyuria Hematologic / Lymphatic: no easy bleeding and no night sweats Physical Exam Constitutional: + well hydrated, cooperative and comfortable Eyes: PERRL, conjunctivae normal, anicteric sclerae ENMT: external ear and nose normal, oropharynx normal Neck: normal visual inspection and trachea midline Respiratory: normal respiratory effort, lungs clear to auscultation Aus cultation: no wheezes Cardiovascular: RRR, no murmur, no edema Gastrointestinal (Abdomen): normal bowel sounds, soft, nontender, no hepatosplenomegaly Musculoskeletal: no cyanosis or clubbing, extremities motor strength 5/5 Skin: no rashes, warm and dry Neurologic: awake; no focal motor deficits Motor/Sensory: no tremor Results & Data ([facility]) Vital Signs (Past 12 Hours) Vital Signs Temp Pulse Resp BP Pulse Ox 11/17/20 07:46 36.7 C 80 16 129/84 98 Laboratory Results Laboratory Results - last 24 hr 11/17/20 11/17/20 11/17/20 00:30 10:03 10:03 WBC 10.15 RBC 3.55 L Hgb 11.2 L Hct 33.8 L MCV 95.2 MCH 31.5 MCHC 33.1 RDW Std Deviation 50.2 H RDW Coeff of Jony 14.4 Plt Count 134 MPV 9.9 Immature Gran % (Auto) 0.1 Neut % (Auto) 86.5 Lymph % (Auto) 4.7 [place] % (Auto) 8.5 Eos % (Auto) 0.1 Baso % (Auto) 0.1 Neut # (Auto) 8.78 H Lymph # (Auto) 0.48 L [place] # (Auto) 0.86 H Eos # (Auto) 0.01 Baso # (Auto) 0.01 Immature Gran # (Auto) 0.01 Sodium 140 Potassium 3.7 Chloride 110 H Carbon Dioxide 23 Anion Gap 7.0 BUN 6 L Creatinine 0.67 D Est Cr Clr Drug Dosing 88.6 Est GFR ( Amer) 123.9 Est GFR (Non-Af Amer) 106.9 BUN/Creatinine Ratio 8.4 L Glucose 109 H Calcium 8.4 L Iron TIBC Transferrin Transferrin % Sat Ferritin Stl C. diff Tox B Gene Negative Cdiff Gene 11/17/20 10:03 WBC RBC Hgb Hct MCV MCH MCHC RDW Std Deviation RDW Coeff of [place] Plt Count MPV Immature Gran % (Auto) Neut % (Auto) Lymph % (Auto) [place] % (Auto) Eos % (Auto) Baso % (Auto) Neut # (Auto) Lymph # (Auto) [place] # (Auto) Eos # (Auto) Baso # (Auto) Immature Gran # (Auto) Sodium Potassium Chloride Carbon Dioxide Anion Gap BUN Creatinine Est Cr Clr Drug Dosing Est GFR ( Amer) Est GFR (Non-Af Amer) BUN/Creatinine Ratio Glucose Calcium Iron Pending TIBC Pending Transferrin Pending Transferrin % Sat Pending Ferritin Pending Stl C. diff Tox B Gene Diagnostic Findings CT scan showed The mid to distal small bowel and the colon are fluid-filled.
[2020-11-17 12:17] LABS: Ferritin 154.1 ng/ml (8-388)
--- NOTE | 2020-11-22 08:35 | Discharge Summary (DS) ---
DATE OF ADMISSION: 11/15/2020 DATE OF DISCHARGE: 11/17/2020. ATTENDING PHYSICIAN: Dr. Ramirez. PRIMARY DISCHARGE DIAGNOSES: 1. Acute appendicitis. 2. Diarrheal illness. PROCEDURES PERFORMED: Laparoscopic appendectomy. CONSULTATIONS: Joe WESLEY for diarrhea. HOSPITAL COURSE: Patient is a 45-year-old female who presented to the Emergency Department with complaint of abdominal pain. Her white count was 11,000. Her CT was read overnight as not definitive for appendicitis. She was admitted to the surgical floor for overnight observation. Her white count had risen in the morning to 19,000. She was having some more pain in the right lower quadrant. She was taken to the operating room for laparoscopy. The appendix did appear to be inflamed. She had some murky fluid in the pelvis. Appendectomy was performed. She was returned to the surgical floor, continued on IV Cipro and Flagyl. On postoperative day #1, her white count had improved to 13,000. Her diarrhea was improving. She requested evaluation by GI for her diarrhea. She was started on p.r.n. Imodium and recommended continue on oral Cipro and Flagyl as an outpatient. She was stable for discharge home on postoperative day #2. DISCHARGE EXAM: Abdomen is soft, nondistended. Incisions are clean and dry. DISCHARGE MEDICATIONS: Percocet 1 or 2 tablets every 4 hours as needed, Cipro 500 mg p.o. b.i.d. and Flagyl 500 mg p.o. t.i.d. x1 week. Resume home medications, daily multivitamin, simethicone 80 mg b.i.d. as needed, iron supplement 142 mg daily, metoprolol 25 mg daily, lorazepam 0.5 mg as needed, Flonase nasal spray as needed, Pepcid 20 mg daily and get out [id number] Imodium 2 mg every 4 hours as needed. MTDD
== END 2020-11-17 13:50 | disposition home or self-care (01) ==
LOC: 3W 18:05 → ED 18:05 → 3W 11-15 02:08

== ENCOUNTER 2020-11-18 05:31 | Inpatient (IN) ==
[2020-11-18] MEDS ORDERED: ONDANSETRON 4 MG OD TAB PO STA (06:17)
--- NOTE | 2020-11-18 06:17 | Emergency Department Note ---
History of Present Illness General Chief complaint: Nausea Stated complaint: NAUSEA,BLOATING Time Seen by Provider: 11/18/20 05:41 Source: patient Mode of arrival: ambulatory Limitations: no limitations History of Present Illness Maximum Pain Intensity: 4 This patient is a 45-year-old female who presents to the emergency department for evaluation of nausea and bloating. She had an appendectomy performed 2 days ago. She states that she had some significant diarrhea at that time which did improve after the surgery, then worsened again. There was concern that she may have an ileus while in the hospital, but states that she was able to get up and moving and was discharged. She has taken Imodium for her diarrhea at home. She states that 1 hour ago, she felt very hot, flushed and nauseous. She had a few episodes of dry heaving. She has tried Tums without improvement. She called the on-call surgeon and they stated that she could either wait it out for an hour or so, or come here to be evaluated. Patient was nervous and decided to come here. She states that her nausea is feeling better at this time. She does report some abdominal "discomfort" rated a 4/10. She denies any fevers. Home Medications Medication Instructions Recorded Confirmed Type fluticasone propionate 50 1 spray INTNAS DAILY 05/27/19 11/18/20 History mcg/actuation nasal spray,suspension lorazepam 0.5 mg tablet 0.5 mg PO HS PRN 05/27/19 11/18/20 History metoprolol succinate 25 mg 25 mg PO UD 05/27/19 11/18/20 History tablet,extended release 24 hr multivitamin (Daily Multi-Vitamin) 1 tab PO DAILY 05/27/19 11/18/20 History famotidine 20 mg tablet (Pepcid) 20 mg PO DAILY 11/14/20 11/18/20 History ferrous sulfate 142 mg (45 mg 142 mg PO DAILY 11/14/20 11/18/20 History iron) tablet,extended release (Slow Fe) simethicone 80 mg chewable tablet 80 mg PO BID PRN 11/14/20 11/18/20 History oxycodone 5 mg tablet 5 - 10 mg PO Q4H #15 tab 11/15/20 11/18/20 Rx ciprofloxacin HCl 500 mg tablet 500 mg PO BID #14 tab 11/16/20 11/18/20 Rx metronidazole 500 mg tablet 500 mg PO TID #20 tab 11/16/20 11/18/20 Rx (Flagyl) acetaminophen 325 mg tablet 650 mg PO QID 11/18/20 11/18/20 History calcium carbonate 500 mg calcium 500 mg PO UD 11/18/20 11/18/20 History (1,250 mg) chewable tablet lactobacillus combination no.4 3 1 mmu cells PO DAILY 11/18/20 11/18/20 History billion cell capsule (Probiotic) loperamide 2 mg capsule (Imodium 2 mg PO Q4H PRN 11/18/20 11/18/20 History A-D) Allergies Allergy/AdvReac Type Severity Reaction Status Date / Time azithromycin Allergy Mild Hives Verified 11/18/20 07:16 Penicillins Allergy Mild HIVES Verified 11/18/20 07:16 lidocaine Allergy Unknown Unknown Verified 11/18/20 07:16 mepivacaine Allergy Unknown TACHYCARDIA Verified 11/18/20 07:16 ,SOB shellfish derived Allergy Unknown Unknown Verified 11/18/20 07:16 Past Med/Surg History Medical History Anxiety Classic migraine with aura Endometrioma Female infertility Ovarian cyst right, seen since 2017, likely endometrioma Supraventricular tachycardia Thyroid nodule Surgical History History of laparoscopic appendectomy (11/15/20) Diagnostic Laparoscopy, Laparoscopic Appendectomy Dr. Ramirez 11-15-2020 History of laparoscopy diagnostic gynecologic with biopsy History of oral surgery tooth extraction History of tonsillectomy Family History Father Squamous cell carcinoma Grandmother (Maternal) Colorectal cancer Mother Endometriosis Basal cell adenocarcinoma Grandfather (Maternal) Colorectal cancer Aunt Breast cancer paternal Grandmother (Paternal) Breast cancer Denies family history of Ovarian cancer Social History Smoking Status: Never smoker Hx Alcohol Use: No Hx Substance Use: No Preferred Language: Maori Communication Ability: Effective Application Dba Required: No Beliefs That Will Affect Care: None Current Living Situation: Family Feels Safe at Home: Yes Assistive Devices: None Review of Systems A total of 10 systems reviewed and were otherwise negative Physical Exam Vital Signs Vital Signs - 24 hr 11/18/20 06:58 11/18/20 07:30 11/18/20 08:00 Temperature Source Pulse Rate [Finger] 88 88 86 Respiratory Rate 20 20 20 Respiratory Effort / Characteristics Non-Labored Spontaneous Non-Labored Spontaneous Non-Labored Spontaneous Respiratory Depth Normal Normal Normal Blood Pressure [Right Arm] 131/82 131/84 129/88 Blood Pressure Mean [Right Arm] 98 99 101 Blood Pressure Position [Right Arm] Lying Lying Lying Pulse Oximetry 98 98 98 Oxygen Delivery Method Room Air Room Air Room Air 11/18/20 08:30 11/18/20 09:00 11/18/20 09:32 Temperature Source Pulse Rate [Finger] 86 86 86 Respiratory Rate 20 20 20 Respiratory Effort / Characteristics Non-Labored Spontaneous Non-Labored Spontaneous Non-Labored Spontaneous Respiratory Depth Normal Normal Normal Blood Pressure [Right Arm] 127/88 131/87 128/87 Blood Pressure Mean [Right Arm] 101 101 100 Blood Pressure Position [Right Arm] Lying Lying Lying Pulse Oximetry 98 98 98 Oxygen Delivery Method Room Air Room Air Room Air 11/18/20 10:00 11/18/20 10:34 11/18/20 11:00 Temperature Source Oral Pulse Rate [Finger] 86 88 73 Respiratory Rate 20 20 Respiratory Effort / Characteristics Non-Labored Spontaneous Non-Labored Spontaneous Respiratory Depth Normal Normal Blood Pressure [Right Arm] 131/88 128/84 135/99 Blood Pressure Mean [Right Arm] 102 98 111 Blood Pressure Position [Right Arm] Lying Lying Pulse Oximetry 98 98 98 Oxygen Delivery Method Room Air Room Air 11/18/20 11:30 11/18/20 12:00 Temperature Source Pulse Rate [Finger] 75 78 Respiratory Rate Respiratory Effort / Characteristics Respiratory Depth Blood Pressure [Right Arm] 111/74 126/78 Blood Pressure Mean [Right Arm] 86 94 Blood Pressure Position [Right Arm] Pulse Oximetry 98 99 Oxygen Delivery Method Room Air Room Air VITALS: Vitals are noted on the nurse's note and reviewed by myself. Vital signs stable. GENERAL: This is a 45-year-old female, in no acute distress, well-developed wel l-nourished. SKIN: The skin was without rashes. EARS: External auditory canals clear, tympanic membranes pearly hernandez without erythema or effusion bilaterally. EYES: Pupils equal round and reactive to light and accommodation. NOSE: Patent, turbinates without inflammation or discharge. MOUTH: Mucous membranes moist. Tonsils are not enlarged. Pharynx without erythema or exudate. NECK: Supple without nuchal rigidity. No lymphadenopathy. HEART: Regular rate and rhythm without murmurs gallops or rubs. LUNGS: Clear to auscultation bilaterally without wheezes, rales or rhonchi. ABDOMEN: Positive bowel sounds x 4. Surgical incisions appear to be well- healing with no signs of infection. There is some mild generalized tenderness to palpation. No guarding or rebound tenderness. NEURO: Patient was alert and oriented to person place and time. Course Administered Medications Famotidine (Famotidine 20 Mg Tab) 20 mg PO DAILY [facility] Stop: 12/18/20 14:44 Last Admin: 11/18/20 15:57 Dose: 20 mg Documented by: [id number] Lactated Ringer's (Lr) 1,000 mls @ 125 mls/hr IV .Q8H JINNY Stop: 12/18/20 12:14 Last Infusion: 11/19/20 04:04 Dose: 125 mls/hr Documented by: [id number] Infusion: 11/19/20 02:04 Dose: 0 mls/hr Documented by: [id number] Infusion: 11/19/20 00:42 Dose: 125 mls/hr Documented by: [id number] Infusion: 11/18/20 23:42 Dose: 0 mls/hr Documented by: [id number] Admin: 11/18/20 23:42 Dose: 125 mls/hr Documented by: [id number] Infusion: 11/18/20 23:42 Dose: 125 mls/hr Documented by: [id number] Admin: 11/18/20 21:37 Dose: Not Given Documented by: [id number] Admin: 11/18/20 15:53 Dose: 125 mls/hr Documented by: [id number] Ciprofloxacin (Cipro / D5w) 400 mg in 200 mls @ 100 mls/hr IV Q12H JINNY; Protocol Stop: 11/28/20 12:59 Last Infusion: 11/19/20 04:04 Dose: 0 mls/hr Documented by: [id number] Admin: 11/19/20 02:04 Dose: 100 mls/hr Documented by: [id number] Infusion: 11/18/20 18:11 Dose: 0 mls/hr Documented by: [id number] Admin: 11/18/20 15:56 Dose: 100 mls/hr Documented by: [id number] Metronidazole (Flagyl) 500 mg in 100 mls @ 100 mls/hr IV Q8H JINNY; Protocol Stop: 11/28/20 14:59 Last Infusion: 11/19/20 00:42 Dose: 0 mls/hr Documented by: [id number] Admin: 11/18/20 23:42 Dose: 100 mls/hr Documented by: [id number] Infusion: 11/18/20 19:30 Dose: 0 mls/hr Documented by: [id number] Admin: 11/18/20 18:30 Dose: 100 mls/hr Documented by: [id number] Metoprolol Succinate (Metoprolol Succ 25mg Ext Rel Tab) 25 mg PO HS JINNY Stop: 12/18/20 20:59 Last Admin: 11/18/20 20:22 Dose: Not Given Documented by: [id number] Discontinued Medications Potassium Chloride (K Sterling / Wtr) 10 meq in 100 mls @ 100 mls/hr IV ONE ONE Stop: 11/18/20 13:24 Last Infusion: 11/18/20 13:40 Dose: 0 mls/hr Documented by: [id number] Admin: 11/18/20 12:42 Dose: 100 mls/hr Documented by: [id number] Potassium Chloride (K Sterling / Wtr) 10 meq in 100 mls @ 100 mls/hr IV Q1H JINNY Stop: 11/18/20 15:59 Last Admin: 11/18/20 21:36 Dose: Not Given Documented by: [id number] Infusion: 11/18/20 21:35 Dose: 0 mls/hr Documented by: [id number] Infusion: 11/18/20 20:28 Dose: 50 mls/hr Documented by: [id number] Admin: 11/18/20 20:28 Dose: 100 mls/hr Documented by: [id number] Ioversol (Optiray 320 100ml) 94 ml IV ONCE ONE Stop: 11/18/20 09:12 Last Admin: 11/18/20 09:11 Dose: 94 ml Documented by: [id number] Ondansetron HCl (Ondansetron 4 Mg Od Tab) 4 mg PO NOW STA Stop: 11/18/20 06:18 Last Admin: 11/18/20 06:37 Dose: 4 mg Documented by: [id number] Medical Decision Making Differential Diagnosis Appendicitis, ovarian cyst, ovarian torsion, ectopic , TOA, PID, infections, diverticulitis, UTI, obstruction, mesenteric ischemia, aortic pathology, inflammatory bowel disease, renal colic, PUD, pancreatitis, biliary pathology, hernia, volvulus, constipation, as well as other pathologies. Home Medications Current Medication List: was personally reviewed by me Laboratory Data Attestation: I reviewed the patient's lab results. Result diagrams: 11/18/20 06:53 11/18/20 06:53 Lab Results 11/18/20 11/18/20 11/18/20 Range/Units 06:15 06:53 06:53 WBC 8.59 (4.8-10.8) K/uL RBC 3.65 L (4.2-5.4) M/uL Hgb 11.7 L (12.0-16.0) g/dL Hct 33.6 L (37-47) % MCV 92.1 (80-100) fL MCH 32.1 (25-34) pg MCHC 34.8 (32-36) g/dL RDW Std Deviation 46.5 H (36.4-46.3) fL RDW Coeff of Jony 13.8 (11.5-14.5) % Plt Count 146 (130-400) K/uL MPV 9.6 (7.4-10.4) fL Immature Gran % (Auto) 0.2 % Neut % (Auto) 82.3 % Lymph % (Auto) 5.9 % [place] % (Auto) 11.4 % Eos % (Auto) 0.1 % Baso % (Auto) 0.1 % Neut # (Auto) 7.06 H (1.4-6.5) K/uL Lymph # (Auto) 0.51 L (1.2-3.4) K/uL [place] # (Auto) 0.98 H (0.11-0.59) K/uL Eos # (Auto) 0.01 (0-0.5) K/uL Baso # (Auto) 0.01 (0-0.2) K/uL Immature Gran # (Auto) 0.02 (0.00-0.02) K/uL Sodium 139 (136-145) mmol/L Potassium 3.3 L (3.5-5.1) mmol/L Chloride 109 H (98-107) mmol/L Carbon Dioxide 24 (21-32) mmol/L Anion Gap 6.0 (3-11) BUN 3 L (7-18) mg/dl Creatinine 0.61 (0.6-1.2) mg/dl Est Cr Clr Drug Dosing 97.4 ml/min Est GFR ( Amer) 127.8 ml/min Est GFR (Non-Af Amer) 110.3 ml/min BUN/Creatinine Ratio 5.1 L (10-20) Glucose 125 H (70-99) mg/dl Calcium 8.4 L (8.5-10.1) mg/dl Total Bilirubin 0.7 (0.2-1) mg/dl AST 10 L (15-37) U/L ALT 13 (12-78) U/L Alkaline Phosphatase 56 (45-117) U/L Total Protein 6.5 (6.4-8.2) gm/dl Albumin 2.7 L (3.4-5.0) gm/dl Globulin 3.8 (2.5-4.0) gm/dl Albumin/Globulin Ratio 0.7 L (0.9-2) Urine Color [place] Urine Appearance Clear (Clear) Urine pH 5.5 (4.5-7.5) Ur Specific [place] 1.023 (1.000-1.030) Urine Protein 1+ H (Negative) Urine Glucose (UA) Negative (Negative) Urine Ketones 1+ H (Negative) Urine Blood 2+ H (Negative) Urine Nitrite Negative (Negative) Urine Bilirubin 1+ H (Negative) Urine Urobilinogen Negative (Negative) Ur Leukocyte Esterase Trace H (Negative) Urine WBC (Auto) 1-5 (0-5) /hpf Urine RBC (Auto) 5-10 H (0-4) /hpf U Hyaline Cast (Auto) 5-10 H (0-5) /lpf U Epithel Cells (Auto) >30 H (0-5) /lpf Urine Bacteria (Auto) Negative (Negative) Urine Crystals Not Reportable Calcium Oxalate Crystal Present A (None Prsent) COVID-19 Eval Order SARS-CoV-2 (PCR) (Negative) 11/18/20 11/18/20 Range/Units 10:40 10:40 WBC (4.8-10.8) K/uL RBC (4.2-5.4) M/uL Hgb (12.0-16.0) g/dL Hct (37-47) % MCV (80-100) fL MCH (25-34) pg MCHC (32-36) g/dL RDW Std Deviation (36.4-46.3) fL RDW Coeff of Jony (11.5-14.5) % Plt Count (130-400) K/uL MPV (7.4-10.4) fL Immature Gran % (Auto) % Neut % (Auto) % Lymph % (Auto) % [place] % (Auto) % Eos % (Auto) % Baso % (Auto) % Neut # (Auto) (1.4-6.5) K/uL Lymph # (Auto) (1.2-3.4) K/uL [place] # (Auto) (0.11-0.59) K/uL Eos # (Auto) (0-0.5) K/uL Baso # (Auto) (0-0.2) K/uL Immature Gran # (Auto) (0.00-0.02) K/uL Sodium (136-145) mmol/L Potassium (3.5-5.1) mmol/L Chloride (98-107) mmol/L Carbon Dioxide (21-32) mmol/L Anion Gap (3-11) BUN (7-18) mg/dl Creatinine (0.6-1.2) mg/dl Est Cr Clr Drug Dosing ml/min Est GFR ( Amer) ml/min Est GFR (Non-Af Amer) ml/min BUN/Creatinine Ratio (10-20) Glucose (70-99) mg/dl Calcium (8.5-10.1) mg/dl Total Bilirubin (0.2-1) mg/dl AST (15-37) U/L ALT (12-78) U/L Alkaline Phosphatase (45-117) U/L Total Protein (6.4-8.2) gm/dl Albumin (3.4-5.0) gm/dl Globulin (2.5-4.0) gm/dl Albumin/Globulin Ratio (0.9-2) Urine Color Urine Appearance (Clear) Urine pH (4.5-7.5) Ur Specific [place] (1.000-1.030) Urine Protein (Negative) Urine Glucose (UA) (Negative) Urine Ketones (Negative) Urine Blood (Negative) Urine Nitrite (Negative) Urine Bilirubin (Negative) Urine Urobilinogen (Negative) Ur Leukocyte Esterase (Negative) Urine WBC (Auto) (0-5) /hpf Urine RBC (Auto) (0-4) /hpf U Hyaline Cast (Auto) (0-5) /lpf U Epithel Cells (Auto) (0-5) /lpf Urine Bacteria (Auto) (Negative) Urine Crystals Calcium Oxalate Crystal (None Prsent) COVID-19 Eval Order Covid19 at [facility] SARS-CoV-2 (PCR) NEGATIVE (Negative) Imaging Data Attestation: I personally reviewed and interpreted this imaging study as follows: Radiologist's Impression: XR abdomen 2V w PA chest INDICATION: MN ^bloating, nausea. TECHNIQUE: 2 views of the abdomen were obtained. A single view of the chest was obtained. Comparison: Comparison is made to CT abdomen and pelvis 11/14/2020 FINDINGS: No lines and tubes are seen. The cardiomediastinal silhouette is normal. The lungs are clear. No evidence of pleural effusion or pneumothorax. The osseous structures are grossly unremarkable. Multiple cysts distended loops of small bowel are seen measuring up to 57 mm. No significant stool burden is visualized. IMPRESSION: Interval increase in gaseous dilation of multiple small bowel loops concerning for obstruction versus ileus. MDM Narrative Continuous secured entrance monitor: Order was placed for continuous secured entrance monitor. Patient was placed on the secured entrance monitor. Patient was noted to be in normal sinus rhythm at an initial rate of 80 bpm. The patient is a 45-year-old female who presents today complaining of dry heaving and abdominal discomfort after surgery. Patient had a recent appendectomy and was discharged yesterday. She called her surgeon this morning and they recommended that she come here for evaluation. Her x-ray is concerning for a possible obstruction. Patient will be sent for CT scan. At change of shift, patient had not yet gone to CT scan. Case was signed out to Dc Schroeder PA-C at change of shift pending these results. Please see his dictation for patient disposition and CT results. Impression & Plan Generalized abdominal pain, Nausea Discharge Plan Visit Data Chief Complaint: Nausea Stated Complaint: NAUSEA,BLOATING ED Provider: Genoveva Parker ED Midlevel Provider: Dc Schroeder Discharge Problem: Generalized abdominal pain, Nausea Patient Disposition: Admitted As Inpatient Discharge Instructions Interventions: ED Discharge Assessment Last Done: 11/18/20 13:51
[2020-11-18 06:26] LABS: Appearance Urine Clear (Clear); Bacteria Urine Automated Negative (Negative); Blood Urine 2+ (Negative); Color Urine Orange; Epithelial Cell Urine Auto >30 /lpf (0-5); Glucose Urine UA Negative (Negative); Ketones Urine 1+ (Negative); Leukocyte Esterase Urine Trace (Negative); Nitrite Urine Negative (Negative); Protein Urine 1+ (Negative); Specific Gravity Urine 1.023 (1.000-1.030); Urobilinogen Urine Negative (Negative); pH Urine 5.5 (4.5-7.5)
[2020-11-18 06:41] LABS: Bilirubin Urine 1+ (Negative)
[2020-11-18 06:47] LABS: Calcium Oxalate Crystals Urine Present (None Prsent)
--- NOTE | 2020-11-18 07:03 | XRay Report ---
XR abdomen 2V w PA chest INDICATION: MN ^bloating, nausea. TECHNIQUE: 2 views of the abdomen were obtained. A single view of the chest was obtained. Comparison: Comparison is made to CT abdomen and pelvis 11/14/2020 FINDINGS: No lines and tubes are seen. The cardiomediastinal silhouette is normal. The lungs are clear. No evid ence of pleural effusion or pneumothorax. The osseous structures are grossly unremarkable. Multiple cysts distended loops of small bowel are se en measuring up to 57 mm. No significant stool burden is visualized. IMPRESSION: Interval increase in gaseous dilation of multiple small bowel loops concerning for obstruction versus ileus. ACT 112: Negative or not required by law. Electronically signed by: Jose Ramon Brewer M.D. 11/18/2020 7:02 AM
[2020-11-18 07:08] LABS: Basophils # (auto) 0.01 K/uL (0-0.2); Basophils % (auto) 0.1 %; Eosinophils # (auto) 0.01 K/uL (0-0.5); Eosinophils % (auto) 0.1 %; Hematocrit (blood only) 33.6 % (37-47); Hemoglobin 11.7 g/dL (12.0-16.0); Immature Granulocytes # (auto) 0.02 K/uL (0.00-0.02); Immature Granulocytes % (auto) 0.2 %; Lymphocytes # (auto) 0.51 K/uL (1.2-3.4); Lymphocytes % (auto) 5.9 %; Mean Corpuscular Hemoglobin 32.1 pg (25-34); Mean Corpuscular Hgb Conc 34.8 g/dL (32-36); Mean Corpuscular Volume 92.1 fL (80-100); Mean Platelet Volume 9.6 fL (7.4-10.4); Monocytes # (auto) 0.98 K/uL (0.11-0.59); Monocytes % (auto) 11.4 %; Neutrophils # (auto) 7.06 K/uL (1.4-6.5); Neutrophils % (auto) 82.3 %; Platelet Count 146 K/uL (130-400); RDW Coefficient of Variation 13.8 % (11.5-14.5); RDW Standard Deviation 46.5 fL (36.4-46.3); Red Blood Count 3.65 M/uL (4.2-5.4); White Blood Count 8.59 K/uL (4.8-10.8)
[2020-11-18 07:44] LABS: Albumin Level 2.7 gm/dl (3.4-5.0); BUN Creatinine Ratio 5.1 (10-20); Calcium 8.4 mg/dl (8.5-10.1); Creatinine Clr Calc Pharmacy 97.4 ml/min; Est GFR (African American) 127.8 ml/min; Est GFR (Non-African American) 110.3 ml/min; Potassium 3.3 mmol/L (3.5-5.1)
[2020-11-18 07:47] LABS: Albumin Globulin Ratio 0.7 (0.9-2); Bilirubin,Total 0.7 mg/dl (0.2-1); Globulin 3.8 gm/dl (2.5-4.0); Total Protein 6.5 gm/dl (6.4-8.2)
[2020-11-18] MEDS ORDERED: OPTIRAY 320 100ml IV ONE (09:11)
--- NOTE | 2020-11-18 09:47 | CT Scan Report ---
ABDOMEN AND PELVIS CT WITH IV CONTRAST CT DOSE: 335.68 mGy.cm HISTORY: Acute generalized abdominal pain and vomiting with recent surgery abdominal pain, vomiting, recent surgery TECHNIQUE: Multiaxial CT images of the abdomen and pelvis were performed following the IV administrat ion of 94 cc of Optiray, A dose lowering technique was utilized adhering to the principles of ALARA. COMPARISON STUDY: CT abdomen and pelvis 11/14/2020 FINDINGS: Trace pleural effusions. The imaged inferior cardiac chambers are unremarkable. Mild depend ent subsegmental bibasilar atelectasis. No definitive pneumatosis or pneumoperitoneum. The spleen, pa ncreas and adrenal glands are unremarkable. Hyperdense material within the gallbladder lumen may repr esent sludge versus vicarious excretion of contrast. Unremarkable liver. Patency of the hepatic and p ortal veins. There is a focal area of decreased enhancement involving the superior pole right kidney on image 151 series 3 which is new from comparison measuring approximately 1.4 cm. Decompressed or bladder with wa ll thickening. Uterus and adnexa are unremarkable. Aorta and IVC are unremarkable. There is no adenop athy. Mild distal esophageal wall thickening. Air and fluid-filled moderately distended stomach. Air and fl uid-filled dilated loops of small bowel measure up to 4.4 cm transition point is noted within the abd ominal right lower quadrant on image 250 of series 3 with decompressed distal small bowel loops. Post operative changes of appendectomy. Interloop edema with trace abdominal pelvic ascites. No drainable fluid collection. Several loops of small bowel within the abdominal right lower quadrant demonstrates circumferential wall thickening. Decompressed a sending colon. Unremarkable soft tissues. No acute fracture. IMPRESSION: 1. Postoperative changes of interval appendectomy. 2. Small bowel obstruction with transition point within the abdominal right lower quadrant. There is associated interloop edema with. Trace abdominal pelvic ascites. No drainable fluid collection. 3. Trace pleural effusions. ACT 112: Negative or not required by law. The above report was generated using voice recognition software. It may contain grammatical, syntax o r spelling errors. Electronically signed by: Krishna Bailey M.D. 11/18/2020 9:46 AM
[2020-11-18] MEDS ORDERED: ONDANSETRON INJ 2 MG/ML 2 ML VIAL IV PRN (12:10)
[2020-11-18] MEDS ORDERED: POTASSIUM CHLORIDE / WTR 10 MEQ/100 ML PLCT IV ONE (12:25)
--- NOTE | 2020-11-18 12:33 | History & Physical Report ---
Date of Service November 18, 2020 Assessment & Plan (1) Abdominal pain: Plan: Patient had abdominal distention nauseated no emesis postop appendectomy with prior history of possibly GI infection her plan is to admit the patient have gastroenterology see the patient who had seen the patient yesterday before discharge At this time hold off any NG tube placement her potassium is 3.3 Plan: Admission IV fluids Continue antibiotics GI service to see her History of Present Illness Chief Complaint: Abdominal discomfort nausea Primary Care Provider: Martin Brown, This 45-year-old female who works at [employer]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 und erwent a laparoscopic appendectomy 3 days ago path noted acute appendicitis with discharge yesterday on Cipro and Flagyl for what may have been a GI infection that was present prior to the symptoms of acute appendicitis since she had had diarrhea before and continued after her appendectomy she was seen by gastroenterology in the hospital and made the above recommendations for Cipro and Flagyl with the patient did not take any Cipro or Flagyl because she was still nauseated and the said her pills were just little bit too big to take so she came into the emergency room today was evaluated CT scan showed what appeared to be possible small bowel obstruction Allergies Allergy/AdvReac Type Severity Reaction Status Date / Time azithromycin Allergy Mild Hives Verified 11/18/20 07:16 Penicillins Allergy Mild HIVES Verified 11/18/20 07:16 lidocaine Allergy Unknown Unknown Verified 11/18/20 07:16 mepivacaine Allergy Unknown TACHYCARDIA Verified 11/18/20 07:16 ,SOB shellfish derived Allergy Unknown Unknown Verified 11/18/20 07:16 Home Medications Medication Instructions Recorded Confirmed Type fluticasone propionate 50 1 spray INTNAS DAILY 05/27/19 11/18/20 History mcg/actuation nasal spray,suspension lorazepam 0.5 mg tablet 0.5 mg PO HS PRN 05/27/19 11/18/20 History metoprolol succinate 25 mg 25 mg PO UD 05/27/19 11/18/20 History tablet,extended release 24 hr multivitamin (Daily Multi-Vitamin) 1 tab PO DAILY 05/27/19 11/18/20 History famotidine 20 mg tablet (Pepcid) 20 mg PO DAILY 11/14/20 11/18/20 History ferrous sulfate 142 mg (45 mg 142 mg PO DAILY 11/14/20 11/18/20 History iron) tablet,extended release (Slow Fe) simethicone 80 mg chewable tablet 80 mg PO BID PRN 11/14/20 11/18/20 History oxycodone 5 mg tablet 5 - 10 mg PO Q4H #15 tab 11/15/20 11/18/20 Rx ciprofloxacin HCl 500 mg tablet 500 mg PO BID #14 tab 11/16/20 11/18/20 Rx metronidazole 500 mg tablet 500 mg PO TID #20 tab 11/16/20 11/18/20 Rx (Flagyl) acetaminophen 325 mg tablet 650 mg PO QID 11/18/20 11/18/20 History calcium carbonate 500 mg calcium 500 mg PO UD 11/18/20 11/18/20 History (1,250 mg) chewable tablet lactobacillus combination no.4 3 1 mmu cells PO DAILY 11/18/20 11/18/20 History billion cell capsule (Probiotic) loperamide 2 mg capsule (Imodium 2 mg PO Q4H PRN 11/18/20 11/18/20 History A-D) Past Med/Surg History Medical History Anxiety Classic migraine with aura Endometrioma Female infertility Ovarian cyst right, seen since 2017, likely endometrioma Supraventricular tachycardia Thyroid nodule Surgical History History of laparoscopic appendectomy (11/15/20) Diagnostic Laparoscopy, Laparoscopic Appendectomy Dr. Ramirez 11-15-2020 History of laparoscopy diagnostic gynecologic with biopsy History of oral surgery tooth extraction History of tonsillectomy Family History Father Squamous cell carcinoma Grandmother (Maternal) Colorectal cancer Mother Endometriosis Basal cell adenocarcinoma Grandfather (Maternal) Colorectal cancer Aunt Breast cancer paternal Grandmother (Paternal) Breast cancer Denies family history of Ovarian cancer Social History Smoking Status: Never smoker Hx Alcohol Use: No Hx Substance Use: No Preferred Language: Swedish Communication Ability: Effective Production Leader Required: No Beliefs That Will Affect Care: None Current Living Situation: Family Feels Safe at Home: Yes Assistive Devices: None Review of Systems Review of Systems: Unchanged from her previous admission Gastrointestinal: Nauseated No emesis Physical Exam Physical Exam: Alert coherent appears comfortable at this time Sclerae nonicteric Oropharyngeal area well-hydrated The abdomen in the supine position is softly distended incisions are healing well No gross pedal edema Results & Data Results & Data ([facility]) Vital Signs (Past 12 Hours) Vital Signs Temp Pulse Pulse Resp BP BP Pulse Ox 11/18/20 12:00 78 126/78 99 11/18/20 11:30 75 111/74 98 11/18/20 11:00 73 135/99 98 11/18/20 10:34 88 20 128/84 98 11/18/20 10:00 86 20 131/88 98 11/18/20 09:32 86 20 128/87 98 11/18/20 09:00 86 20 131/87 98 11/18/20 08:30 86 20 127/88 98 11/18/20 08:00 86 20 129/88 98 11/18/20 07:30 88 20 131/84 98 11/18/20 06:58 88 20 131/82 98 11/18/20 05:47 87 22 142/87 H 97 11/18/20 05:35 37.1 C 83 18 137/89 99 PG Care Time/CCT Total # of Minutes Spent Total Time Spent with Patient: Total time spent is greater than 50% in coordination of care (as documented) at patient's floor/unit and/or counseling patient: Coding Level of Care Code 21791 Initial Inpt Care Lvl 2 Diagnoses Abdominal pain R10.31 Abdominal location: right lower quadrant (1) Abdominal pain Abdominal location: right lower quadrant Qualified Code(s): R10.31 - Right lower quadrant pain
[2020-11-18] MEDS ORDERED: LORazepam 0.5 MG TAB PO PRN (14:39)
[2020-11-18] MEDS: LACTATED RINGER'S 1,000 ML IV SCH ×3 (15:53→23:42)
[2020-11-18] MEDS: CIPROFLOXACIN / D5W 400 MG/200 ML BAG IV SCH (15:56)
[2020-11-18] MEDS: FAMOTIDINE 20 MG TAB PO SCH (15:57)
--- NOTE | 2020-11-18 16:34 | Gastrointestinal Consultation ---
Date of Consultation November 18, 2020 Assessment & Plan (1) Abdominal pain: Clinically does not seem to be consistent with SBO, favors post OP ileus specifically with her profound hypokalemia. WBC normalized. No signs of peritonitis. Recommend: Encourage ambulation. Correct Potassium to reach a level of 4. IV Cipro/Flagyl. PRN Zofran Avoid Opioids. KUB tomorrow. NG tube if she develops vomiting or abdominal distention. (2) Ileus: (3) SBO (small bowel obstruction): History of Present Illness Reason for Consultation: Abdominal pain Attending Physician: Olu Majano MD, FACS History of Present Illness 45 years old female patient with recent acute appendicitis, s/p lap appendectomy 3 days ago, was discharged yesterday however she had diarrhea which was attributed to inflammatory enteritis. Today presented with abdominal pain and nausea. She is passing gas and having small BM. ABdomen is less distended compared to yesterday. CT scan showed SBO. Allergies Allergy/AdvReac Type Severity Reaction Status Date / Time azithromycin Allergy Mild Hives Verified 11/18/20 07:16 Penicillins Allergy Mild HIVES Verified 11/18/20 07:16 lidocaine Allergy Unknown Unknown Verified 11/18/20 07:16 mepivacaine Allergy Unknown TACHYCARDIA Verified 11/18/20 07:16 ,SOB shellfish derived Allergy Unknown Unknown Verified 11/18/20 07:16 Home Medications Medication Instructions Recorded Confirmed Type fluticasone propionate 50 1 spray INTNAS DAILY 05/27/19 11/18/20 History mcg/actuation nasal spray,suspension lorazepam 0.5 mg tablet 0.5 mg PO HS PRN 05/27/19 11/18/20 History metoprolol succinate 25 mg 25 mg PO UD 05/27/19 11/18/20 History tablet,extended release 24 hr multivitamin (Daily Multi-Vitamin) 1 tab PO DAILY 05/27/19 11/18/20 History famotidine 20 mg tablet (Pepcid) 20 mg PO DAILY 11/14/20 11/18/20 History ferrous sulfate 142 mg (45 mg 142 mg PO DAILY 11/14/20 11/18/20 History iron) tablet,extended release (Slow Fe) simethicone 80 mg chewable tablet 80 mg PO BID PRN 11/14/20 11/18/20 History oxycodone 5 mg tablet 5 - 10 mg PO Q4H #15 tab 11/15/20 11/18/20 Rx ciprofloxacin HCl 500 mg tablet 500 mg PO BID #14 tab 11/16/20 11/18/20 Rx metronidazole 500 mg tablet 500 mg PO TID #20 tab 11/16/20 11/18/20 Rx (Flagyl) acetaminophen 325 mg tablet 650 mg PO QID 11/18/20 11/18/20 History calcium carbonate 500 mg calcium 500 mg PO UD 11/18/20 11/18/20 History (1,250 mg) chewable tablet lactobacillus combination no.4 3 1 mmu cells PO DAILY 11/18/20 11/18/20 History billion cell capsule (Probiotic) loperamide 2 mg capsule (Imodium 2 mg PO Q4H PRN 11/18/20 11/18/20 History A-D) Patient History Medical History Anxiety Classic migraine with aura Endometrioma Female infertility Ovarian cyst right, seen since 2016, likely endometrioma Supraventricular tachycardia Thyroid nodule Surgical History History of laparoscopic appendectomy (11/15/20) Diagnostic Laparoscopy, Laparoscopic Appendectomy Dr. Ramirez 11-15-2020 History of laparoscopy diagnostic gynecologic with biopsy History of oral surgery tooth extraction History of tonsillectomy Family History Father Squamous cell carcinoma Grandmother (Maternal) Colorectal cancer Mother Endometriosis Basal cell adenocarcinoma Grandfather (Maternal) Colorectal cancer Aunt Breast cancer paternal Grandmother (Paternal) Breast cancer Denies family history of Ovarian cancer Social History Smoking Status: Never smoker Hx Alcohol Use: No Hx Substance Use: No Preferred Language: Lao Communication Ability: Effective Nut Orchardist Required: No Beliefs That Will Affect Care: None Current Living Situation: Family Feels Safe at Home: Yes Assistive Devices: Glasses Review of Systems Review of Systems: All systems reviewed & are unremarkable except as noted in HPI & below Physical Exam Constitutional: comfortable; no acute distress Respiratory: normal respiratory effort, lungs clear to auscultation Cardiovascular: RRR, no murmur, no edema Gastrointestinal (Abdomen): normal bowel sounds, soft, nontender, no hepatosplenomegaly Results & Data ([facility]) Vital Signs (Past 12 Hours) Vital Signs Temp Pulse Pulse Resp BP BP Pulse Ox 11/18/20 14:24 36.6 C 74 18 123/84 100 11/18/20 14:14 36.6 C 81 18 123/84 99 11/18/20 13:36 79 14 141/85 H 99 11/18/20 12:00 78 126/78 99 11/18/20 11:30 75 111/74 98 11/18/20 11:00 73 135/99 98 11/18/20 10:34 88 20 128/84 98 11/18/20 10:00 86 20 131/88 98 11/18/20 09:32 86 20 128/87 98 11/18/20 09:00 86 20 131/87 98 11/18/20 08:30 86 20 127/88 98 11/18/20 08:00 86 20 129/88 98 11/18/20 07:30 88 20 131/84 98 11/18/20 06:58 88 20 131/82 98 11/18/20 05:47 87 22 142/87 H 97 11/18/20 05:35 37.1 C 83 18 137/89 99 Laboratory Results Laboratory Results - last 24 hr 11/18/20 11/18/20 11/18/20 06:15 06:53 06:53 WBC 8.59 RBC 3.65 L Hgb 11.7 L Hct 33.6 L MCV 92.1 MCH 32.1 MCHC 34.8 RDW Std Deviation 46.5 H RDW Coeff of Jony 13.8 Plt Count 146 MPV 9.6 Immature Gran % (Auto) 0.2 Neut % (Auto) 82.3 Lymph % (Auto) 5.9 Barbour % (Auto) 11.4 Eos % (Auto) 0.1 Baso % (Auto) 0.1 Neut # (Auto) 7.06 H Lymph # (Auto) 0.51 L Barbour # (Auto) 0.98 H Eos # (Auto) 0.01 Baso # (Auto) 0.01 Immature Gran # (Auto) 0.02 Sodium 139 Potassium 3.3 L Chloride 109 H Carbon Dioxide 24 Anion Gap 6.0 BUN 3 L Creatinine 0.61 Est Cr Clr Drug Dosing 97.4 Est GFR ( Amer) 127.8 Est GFR (Non-Af Amer) 110.3 BUN/Creatinine Ratio 5.1 L Glucose 125 H Calcium 8.4 L Total Bilirubin 0.7 AST 10 L ALT 13 Alkaline Phosphatase 56 Total Protein 6.5 Albumin 2.7 L Globulin 3.8 Albumin/Globulin Ratio 0.7 L Urine Color Lea Urine Appearance Clear Urine pH 5.5 Ur Specific Clifford 1.023 Urine Protein 1+ H Urine Glucose (UA) Negative Urine Ketones 1+ H Urine Blood 2+ H Urine Nitrite Negative Urine Bilirubin 1+ H Urine Urobilinogen Negative Ur Leukocyte Esterase Trace H Urine WBC (Auto) 1-5 Urine RBC (Auto) 5-10 H U Hyaline Cast (Auto) 5-10 H U Epithel Cells (Auto) >30 H Urine Bacteria (Auto) Negative Urine Crystals Not Reportable Calcium Oxalate Crystal Present A COVID-19 Eval Order SARS-CoV-2 (PCR) 11/18/20 11/18/20 10:40 10:40 WBC RBC Hgb Hct MCV MCH MCHC RDW Std Deviation RDW Coeff of Jony Plt Count MPV Immature Gran % (Auto) Neut % (Auto) Lymph % (Auto) Barbour % (Auto) Eos % (Auto) Baso % (Auto) Neut # (Auto) Lymph # (Auto) Barbour # (Auto) Eos # (Auto) Baso # (Auto) Immature Gran # (Auto) Sodium Potassium Chloride Carbon Dioxide Anion Gap BUN Creatinine Est Cr Clr Drug Dosing Est GFR ( Amer) Est GFR (Non-Af Amer) BUN/Creatinine Ratio Glucose Calcium Total Bilirubin AST ALT Alkaline Phosphatase Total Protein Albumin Globulin Albumin/Globulin Ratio Urine Color Urine Appearance Urine pH Ur Specific Clifford Urine Protein Urine Glucose (UA) Urine Ketones Urine Blood Urine Nitrite Urine Bilirubin Urine Urobilinogen Ur Leukocyte Esterase Urine WBC (Auto) Urine RBC (Auto) U Hyaline Cast (Auto) U Epithel Cells (Auto) Urine Bacteria (Auto) Urine Crystals Calcium Oxalate Crystal COVID-19 Eval Order Covid19 at [facility] SARS-CoV-2 (PCR) NEGATIVE (1) Abdominal pain Abdominal location: right lower quadrant Qualified Code(s): R10.31 - Right lower quadrant pain
--- NOTE | 2020-11-18 16:35 | Emergency Department Note ---
ED Visit Note 45-year-old female whose care was transferred to wi from Jesica Reyes PA-C at change of shift. At the time of transfer of care, the patient was awaiting CT imaging of the abdomen to rule out obstruction. Patient has a history of laparoscopic appendectomy performed 4 days ago. She was discharged the following day with some abdominal discomfort and inability to tolerate foods. She was drinking fluids, and had flatus and a bowel movement prior to discharge. The patient reports that her abdominal pain progressively worsened. At the time of transfer of care, lab work had been completed, showing no leukocytosis. She has a mild hypokalemia with a potassium of 3.3. LFTs were normal. Urinalysis shows hematuria with calcium oxalate crystals noted, and no obvious UTI on microscopy. An initial abdomen obstruction series was performed, showing findings concerning for possible obstruction versus ileus. This prompted CT imaging, showing a small bowel of Montenegrin with transition point within the abdominal right lower quadrant, along with associated interloop edema with trace abdominal pelvic ascites. Findings were discussed with the patient, as well as Mata Higginbotham PA-C and Dr. Majano, who reviewed imaging, and will admit the patient. They have requested no NG tube placement at this time. Dr. Majano did order a K rider for potassium replacement. The patient did not require any additional analgesics or antiemetics prior to my transfer of care to the surgical team. MEDICAL DECISION MAKING. Patient presents the emergency department with abdominal pain status post appendectomy [address] imaging is concerning for small bowel obstruction with transition point within the abdominal right lower quadrant, along with associated interloop edema with trace abdominal pelvic ascites. The surgical team has agreed to admit the patient. Please see their dictation for further treatment and final disposition. DIAGNOSIS: 1. Small bowel obstruction 2. Postoperative day 3 of laparoscopic appendectomy .
[2020-11-18] MEDS: metroNIDAZOLE 500 MG/100 ML BAG IV SCH ×2 (18:30→23:42)
[2020-11-18 20:22] LABS: Appearance Urine Clear (Clear); Bacteria Urine Automated Negative (Negative); Blood Urine 3+ (Negative); Color Urine Dark Yellow; Epithelial Cell Urine Auto 20-30 /lpf (0-5); Glucose Urine UA Negative (Negative); Ketones Urine 4+ (Negative); Leukocyte Esterase Urine Trace (Negative); Nitrite Urine Negative (Negative); Protein Urine 1+ (Negative); RBC Urine Automated >30 /hpf (0-4); Specific Gravity Urine 1.039 (1.000-1.030); Urobilinogen Urine Negative (Negative)
[2020-11-18] MEDS: METOPROLOL SUCC 25MG EXT REL TAB PO SCH (20:22)
[2020-11-18 20:24] LABS: Bilirubin Urine 1+ (Negative)
[2020-11-18] MEDS: POTASSIUM CHLORIDE / WTR 10 MEQ/100 ML PLCT IV SCH ×2 (20:28→21:36)
[2020-11-19] MEDS: CIPROFLOXACIN / D5W 400 MG/200 ML BAG IV SCH ×2 (02:04→12:52)
[2020-11-19] MEDS: metroNIDAZOLE 500 MG/100 ML BAG IV SCH ×3 (06:52→22:45)
--- NOTE | 2020-11-19 07:30 | Surgery Progress Note ---
Date of Service November 19, 2020 Assessment & Plan (1) Abdominal pain: Plan: Patient had abdominal distention nauseated no emesis postop appendectomy with prior history of possibly GI infection her plan is to admit the patient have gastroenterology see the patient who had seen the patient yesterday before discharge At this time hold off any NG tube placement her potassium is 3.3 (2) Generalized abdominal pain: Plan: At the present time was started on clear liquids depending what her potassium level will start p.o. although she states she cannot take any pills she would like the liquid form Overall she is improving and I suspect that this is more of an ileus rather than a small bowel obstruction which I agree with gastroenterology who was following along with the patient Suspect she will be here until tomorrow Dr. Buck's covering the weekend Plan: Admission IV fluids Continue antibiotics GI service to see her Admission and Anticipated Discharge Date Admission Date: November 18, 2020 Subjective Feels much better than yesterday had a good night multiple issues he brought to our attention 1 stating that she had some urinary retention and was only voiding about 100 cc then after she had a bowel movement she is urinating well She also stated that potassium riders that were given only 1-1/2 bags were given because she had IV issues She stated that she had diarrhea months ago was not sure what caused that No further nausea her belching Physical Exam Physical Exam: Alert coherent no distress resting comfortably in bed appears well-hydrated The abdomen is softer than yesterday still mildly distended incisions are healing well Potassium levels pending this morning Results & Data ([facility]) Vital Signs (Past 12 Hours) Vital Signs Temp Pulse Resp BP Pulse Ox 11/19/20 03:07 36.8 C 67 16 131/85 98 11/18/20 23:04 36.7 C 81 16 136/82 98 11/18/20 19:37 36.9 C 80 16 140/87 98 PG Care Time/CCT Total # of Minutes Spent Total Time Spent with Patient: Total time spent is greater than 50% in coordination of care (as documented) at patient's floor/unit and/or counseling patient: Coding Level of Care Code 07456 Subseq Hosp Care Lvl 3 Diagnoses Abdominal pain R10.31 Abdominal location: right lower quadrant Generalized abdominal pain R10.84 (1) Abdominal pain Abdominal location: right lower quadrant Qualified Code(s): R10.31 - Right lower quadrant pain
[2020-11-19] MEDS: METOPROLOL SUCC 25MG EXT REL TAB PO SCH ×2 (08:10→19:55)
[2020-11-19] MEDS: FAMOTIDINE 20 MG TAB PO SCH (08:10)
[2020-11-19 08:26] LABS: BUN Creatinine Ratio 5.9 (10-20); Calcium 8.8 mg/dl (8.5-10.1); Est GFR (African American) 128.5 ml/min; Est GFR (Non-African American) 110.9 ml/min; Potassium 3.3 mmol/L (3.5-5.1)
[2020-11-19] MEDS: POTASSIUM CHLORIDE 20 MEQ/15 ML UDC PO SCH ×2 (09:54→17:20)
--- NOTE | 2020-11-19 10:16 | Gastroenterology Progress Note ---
Date of Service November 19, 2020 Assessment & Plan (1) Abdominal pain: Plan: 45 year old female admitted w/ ileus s/p appy w/o signs of peritonitis, clinically improving . Can continue dietary advancement if tolerating clears Encourage ambulation. Correct Potassium to reach a level of 4. IV Cipro/Flagyl. PRN Zofran Avoid Opioids. OP EGD/Colon for symptoms and MARTÍNEZ Thank you for allowing us to participate in the care of this patient. Please call with any acute changes, questions or concerns. Please see addendum below with additional recommendation from my supervising physician. (2) Ileus: (3) SBO (small bowel obstruction): Admission and Anticipated Discharge Date Admission Date: November 18, 2020 Supervising Physician Co-Signing Physician Notes I performed a history and physical examination of the patient today, including specifically on physical exam - soft abdomen. I have discussed the patient's management with the advanced practitioner. Please refer to the nurse practitioner's note for the documented findings and plan of care. Informed me she has bad endometriosis and requiring extensive surgery in the past which was complicated by intraabdominal hematoma. Much better today, moving around, no pain. Tolerated clear liquids. Moved her bowel, less diarrhea, passing gas. Recommend: Continue correcting her potassium. Monitor for SBO. Advance diet as tolerated Recall GI if needed. Subjective pt was seen and evaluated, chart reviewed passing stools/gas voiding urine Walking halls trying clears no nausea/vomiting Review of Systems Review of Systems: All systems reviewed & are unremarkable except as noted in HPI & below Physical Exam Constitutional: WD/WN, vitals as above Neck: trachea midline, no thyromegaly Respiratory: normal respiratory effort, lungs clear to auscultation Cardiovascular: RRR, no murmur, no edema Gastrointestinal (Abdomen): Inspection/Auscultation: abdomen normal to inspection, + abdomen distended and normal bowel sounds Percussion/Palpation: + abdomen tender and abdomen soft; no guarding, abdomen not rigid, no abdominal mass and no ascites Skin: no rashes, warm and dry Results & Data ([facility]) Vital Signs (Past 12 Hours) Vital Signs Temp Pulse Pulse Resp BP Pulse Ox 11/19/20 07:30 36.7 C 81 18 130/80 98 11/19/20 03:07 36.8 C 67 16 131/85 98 11/18/20 23:04 36.7 C 81 16 136/82 98 (1) Abdominal pain Abdominal location: right lower quadrant Qualified Code(s): R10.31 - Right lower quadrant pain
[2020-11-19] MEDS: NSS + 20MEQ KCL 20 MEQ/1,000 ML BAG IV SCH ×3 (11:03→21:44)
[2020-11-19 13:30] LABS: Magnesium 1.6 mg/dl (1.8-2.4)
[2020-11-19 13:42] LABS: Phosphorus 2.2 mg/dl (2.5-4.9)
[2020-11-20] MEDS: ACETAMINOPHEN 325 MG TAB PO PRN ×3 (00:52→22:13)
[2020-11-20] MEDS: CIPROFLOXACIN / D5W 400 MG/200 ML BAG IV SCH ×2 (01:28→13:51)
[2020-11-20] MEDS: metroNIDAZOLE 500 MG/100 ML BAG IV SCH ×3 (06:13→22:12)
--- NOTE | 2020-11-20 07:26 | Surgery Progress Note ---
Date of Service November 20, 2020 Assessment & Plan (1) Ileus: Plan: Patient's vital signs are stable She passed a small amount of flatus She still has some abdominal distention but does have some bowel sounds She would like to try some crackers and soup-she does not want milk or cream We will slowly advance her diet Encourage ambulation in the hallway Continue IV antibiotics We will need at least 1-2 more days in the hospital and would not discharge her too soon Admission and Anticipated Discharge Date Admission Date: November 18, 2020 Results & Data ([facility]) Vital Signs (Past 12 Hours) Vital Signs Temp Pulse Pulse Resp BP Pulse Ox 11/20/20 06:23 37.1 C 88 16 128/85 98 11/19/20 22:50 37.0 C 93 H 14 127/80 98 PG Care Time/CCT Total # of Minutes Spent Total Time Spent with Patient: Total time spent is greater than 50% in coordination of care (as documented) at patient's floor/unit and/or counseling patient: Coding Level of Care Code None Diagnoses Ileus K56.7
[2020-11-20 07:38] LABS: Albumin Level 2.1 gm/dl (3.4-5.0); BUN Creatinine Ratio 4.7 (10-20); Creatinine Clr Calc Pharmacy 100.7 ml/min; Est GFR (African American) 129.2 ml/min; Est GFR (Non-African American) 111.5 ml/min; Magnesium 1.7 mg/dl (1.8-2.4); Potassium 3.6 mmol/L (3.5-5.1)
[2020-11-20 07:41] LABS: Albumin Globulin Ratio 0.6 (0.9-2); Bilirubin,Total 0.6 mg/dl (0.2-1); Globulin 3.6 gm/dl (2.5-4.0); Phosphorus 2.3 mg/dl (2.5-4.9); Total Protein 5.7 gm/dl (6.4-8.2)
[2020-11-20] MEDS: FAMOTIDINE 20 MG TAB PO SCH (09:38)
[2020-11-20] MEDS: POTASSIUM CHLORIDE 20 MEQ/15 ML UDC PO SCH ×2 (09:39→17:33)
[2020-11-20] MEDS: NSS + 20MEQ KCL 20 MEQ/1,000 ML BAG IV SCH ×2 (09:39→22:12)
[2020-11-20] MEDS: METOPROLOL SUCC 25MG EXT REL TAB PO SCH ×2 (09:39→20:42)
[2020-11-20] MEDS ORDERED: POTASSIUM PHOSPHATE 15 MMOL in SODIUM CHLORIDE 0.9% 250 ML IV ONE (13:00)
[2020-11-20] MEDS: MAGNESIUM SULFATE / D5W 1 GM/100 ML BAG IV SCH ×2 (13:37→16:03)
[2020-11-21] MEDS: CIPROFLOXACIN / D5W 400 MG/200 ML BAG IV SCH ×2 (01:39→14:23)
[2020-11-21] MEDS: NSS + 20MEQ KCL 20 MEQ/1,000 ML BAG IV SCH ×2 (03:52→10:32)
[2020-11-21 07:16] LABS: Albumin Level 2.1 gm/dl (3.4-5.0); BUN Creatinine Ratio 4.2 (10-20); Calcium 7.7 mg/dl (8.5-10.1); Est GFR (African American) 131.4 ml/min; Est GFR (Non-African American) 113.4 ml/min; Magnesium 2.2 mg/dl (1.8-2.4); Potassium 3.3 mmol/L (3.5-5.1)
[2020-11-21 07:19] LABS: Albumin Globulin Ratio 0.6 (0.9-2); Bilirubin,Total 0.6 mg/dl (0.2-1); Globulin 3.5 gm/dl (2.5-4.0); Total Protein 5.6 gm/dl (6.4-8.2)
[2020-11-21] MEDS ORDERED: TPN/PPN CONSULT PHARMACY PRN (07:43)
[2020-11-21] MEDS ORDERED: POTASSIUM PHOSPHATE 21 MMOL in SODIUM CHLORIDE 0.9% 500 ML IV ONE (07:45)
[2020-11-21] MEDS ORDERED: DEXTROSE 10% 1,000 ML IV PRN (07:46)
--- NOTE | 2020-11-21 07:50 | Surgery Progress Note ---
Date of Service November 21, 2020 Assessment & Plan (1) Ileus: Plan: Patient did have some nausea but no emesis She continues to have watery diarrhea She has taken some p.o. 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
--- NOTE | 2020-11-21 08:26 | XRay Report ---
LEFT LATERAL DECUBITUS AND SUPINE AP RADIOGRAPHS OF THE ABDOMEN AND PELVIS CLINICAL HISTORY: h/o sbo/ ileus COMPARISON STUDY: Abdominal series and CT of the abdomen and pelvis November 18, 2020. FINDINGS: No free air is evident on the left lateral decubitus image. Moderate small bowel dilatatio n is noted. Small bowel loops measure up to 5 cm in caliber. Small bowel dilatation has decreased sin ce exams of November 18, 2020. There is a paucity of colonic gas. IMPRESSION: 1. Findings suggestive of a persistent, but improving, small bowel obstruction. 2. No free air. ACT 112: Negative or not required by law. Electronically signed by: Flo Lamas M.D. 11/21/2020 8:25 AM
--- NOTE | 2020-11-21 08:51 | Consultation ---
Date of Consultation November 21, 2020 Assessment & Plan (1) Small bowel obstruction due to adhesions: 45-year-old female status post appendectomy on 11/15 with persistent nausea and diarrhea, so severe this is causing electrolyte abnormalities. She is been readmitted with imaging including a CT scan and KUB today concerning for small bowel obstruction. She has been able to tolerate some clear liquids but continues to have significant diarrhea. She is on Cipro and Flagyl without any clear infectious source. Although bacterial translocation may be a concern and a colitis, would recommend stopping these antibiotics at this time. Defer to surgery and GI to make the final decision there. This may improve her diarrhea. C. difficile has been ruled out twice. Additionally, would not give her any dairy products (AKA full liquid diet) as this will promote continued diarrhea. Would stay consistent with a BRAT diet. Per general surgery, NG tube will be placed this morning which seems to be appropriate at this point. Continue to monitor clinical improvement. (2) Acute diarrhea: Diarrhea has been going on preoperatively and she does report some flushing. Differential diagnosis includes but is not limited to carcinoid and VIPoma here. In the setting of perioperative ileus versus obstruction, her most likely cause of diarrhea is related to the bowel edema related to the surgery and or obstruction, or the antibiotics. Continue to replace electrolytes as needed. If this is not improving consider 24-hour urine 5 HIAA and serum vasoactive intestinal peptide level to look for carcinoid and VIPoma respectively. Uncertain exposure, however, checking norovirus and rotavirus for completion. (3) S/P appy: Postoperative incision site looks well and she is doing well from a pain perspective. (4) Electrolyte abnormality: K and Phos are low this morning. She has been started on PPN. Replace electrolytes as needed. Repeat BMP, Mg, Phos daily (5) Inappropriate sinus tachycardia: History of inappropriate sinus tachycardia, currently hemodynamically stable. Continue metoprolol per home regimen. (6) Migraine: Chronic, stable (7) DVT prophylaxis: SCD/ambulation Full code Disposition-to home when diarrhea improves and she is able to tolerate p.o. reliably with electrolyte stability demonstrated. Thank you for this consultation Mera Clemens DO [facility] Hospitalist History of Present Illness Requesting Physician: Dr. Karel Buck Reason for Consultation: medical evaluation post op diarrhea Attending Physician: Olu Majano MD, FACS History of Present Illness 45-year-old female who underwent a laparoscopic appendectomy on 11/15 who was then discharged but returned with abdominal discomfort, persistent diarrhea and inability to tolerate foods. Postop nausea prompted a CT for possible obstruction versus ileus, revealing a small bowel obstruction with transition point in the abdominal right lower quadrant along with associated interloop edema with trace abdominal pelvic ascites. No NG tube placement was necessary and electrolytes were repleted. GI was consulted and recommended IV Cipro and Flagyl with avoidance of opiates. Of note her diarrhea was attributed to inflammatory enteritis. She has been passing gas and is having small bowel movements. The reading of small bowel obstruction was clinically thought to be more of an ileus per the senior property manager and the surgeon. Antibiotics IV fluids and a clear liquid diet was continued. She reports feeling significant discomfort when a food bolus passes through her transverse colon area. This discomfort can last for up to an hour and is intermittent until the bolus has passed through. She has been experiencing this since Sunday of last week (6 days ago and was post op at that time). No change in intensity reported. She has been able to drink some clears and take in crackers and some jello but continues to have intense watery diarrhea. C-diff checked on both 11/15 and 11/17 was negative. She does report flushing and nausea with the diarrhea, which began preoperatively. Pathology on the appendix specimen is negative for dysplasia or malignancy. Allergies Allergy/AdvReac Type Severity Reaction Status Date / Time azithromycin Allergy Mild Hives Verified 11/18/20 07:16 Penicillins Allergy Mild HIVES Verified 11/18/20 07:16 lidocaine Allergy Unknown Unknown Verified 11/18/20 07:16 mepivacaine Allergy Unknown TACHYCARDIA Verified 11/18/20 07:16 ,SOB shellfish derived Allergy Unknown Unknown Verified 11/18/20 07:16 Home Medications Medication Instructions Recorded Confirmed Type fluticasone propionate 50 1 spray INTNAS DAILY 05/27/19 11/18/20 History mcg/actuation nasal spray,suspension lorazepam 0.5 mg tablet 0.5 mg PO HS PRN 05/27/19 11/18/20 History metoprolol succinate 25 mg 25 mg PO UD 05/27/19 11/18/20 History tablet,extended release 24 hr multivitamin (Daily Multi-Vitamin) 1 tab PO DAILY 05/27/19 11/18/20 History famotidine 20 mg tablet (Pepcid) 20 mg PO DAILY 11/14/20 11/18/20 History ferrous sulfate 142 mg (45 mg 142 mg PO DAILY 11/14/20 11/18/20 History iron) tablet,extended release (Slow Fe) simethicone 80 mg chewable tablet 80 mg PO BID PRN 11/14/20 11/18/20 History oxycodone 5 mg tablet 5 - 10 mg PO Q4H #15 tab 11/15/20 11/18/20 Rx ciprofloxacin HCl 500 mg tablet 500 mg PO BID #14 tab 11/16/20 11/18/20 Rx metronidazole 500 mg tablet 500 mg PO TID #20 tab 11/16/20 11/18/20 Rx (Flagyl) acetaminophen 325 mg tablet 650 mg PO QID 11/18/20 11/18/20 History calcium carbonate 500 mg calcium 500 mg PO UD 11/18/20 11/18/20 History (1,250 mg) chewable tablet lactobacillus combination no.4 3 1 mmu cells PO DAILY 11/18/20 11/18/20 History billion cell capsule (Probiotic) loperamide 2 mg capsule (Imodium 2 mg PO Q4H PRN 11/18/20 11/18/20 History A-D) Patient History Medical History Anxiety Classic migraine with aura Endometrioma Female infertility Ovarian cyst right, seen since 2017, likely endometrioma Supraventricular tachycardia Thyroid nodule Surgical History History of laparoscopic appendectomy (11/15/20) Diagnostic Laparoscopy, Laparoscopic Appendectomy Dr. Ramirez 11-15-2020 History of laparoscopy diagnostic gynecologic with biopsy History of oral surgery tooth extraction History of tonsillectomy Family History Father Squamous cell carcinoma Grandmother (Maternal) Colorectal cancer Mother Endometriosis Basal cell adenocarcinoma Grandfather (Maternal) Colorectal cancer Aunt Breast cancer paternal Grandmother (Paternal) Breast cancer Denies family history of Ovarian cancer Social History Smoking Status: Never smoker Hx Alcohol Use: No Hx Substance Use: No Preferred Language: [place]al[place] Communication Ability: Effective Trash Man Required: No Beliefs That Will Affect Care: None marital status: Current Living Situation: Family Feels Safe at Home: Yes Assistive Devices: Glasses Review of Systems Review of Systems: At least ten systems were reviewed and negative except as indicated in HPI above. Physical Exam Physical Exam: CONSTITUTIONAL: WNWD, vitals as above, generally well- appearing EYES: normal conjunctivae, no scleral icterus ENT: external ear and nose normal, NG tube in place NECK: trachea midline RESPIRATORY: clear to auscultation bilaterally, no crackles, rales or wheezes, normal respiratory effort CARDIOVASCULAR: regular rate and rhythm, S1 and 2 heard without murmurs, gallops or rubs, no JVD, no peripheral edema CHEST: inspection of chest was normal GASTROINTESTINAL: normal bowel sounds, soft, NT, laparoscopic incisions are closed and covered with steri strips. No surrounding erythema or drainage. One midline incision flanked by small blisters that are erythematous. MUSCULOSKELETAL: strength 5/5 throughout, head is normocephalic and atraumatic SKIN: warm and dry NEUROLOGIC: CN 2-12 grossly intact, no sensory deficit, normal cognition PSYCHIATRIC: alert cooperative and oriented to person, place and time. Results & Data ([facility]) Vital Signs (Past 12 Hours) Vital Signs Temp Pulse Resp BP Pulse Ox 11/21/20 07:42 36.8 C 88 16 126/84 97 11/20/20 23:08 37.3 C 97 H 14 132/84 97 Laboratory Results [facility] 11/21/20 05:56 Sodium 139 Potassium 3.3 L Chloride 107 Carbon Dioxide 25 BUN 2 L Creatinine 0.56 L Glucose 117 H Calcium 7.7 L Liver Function 11/21/20 Range/Units 05:56 Total Bilirubin 0.6 (0.2-1) mg/dl AST 7 L (15-37) U/L ALT 11 L (12-78) U/L Alkaline Phosphatase 47 (45-117) U/L Albumin 2.1 L (3.4-5.0) gm/dl Diagnostic Findings LEFT LATERAL DECUBITUS AND SUPINE AP RADIOGRAPHS OF THE ABDOMEN AND PELVIS CLINICAL HISTORY: h/o sbo/ ileus COMPARISON STUDY: Abdominal series and CT of the abdomen and pelvis November 18, 2020. FINDINGS: No free air is evident on the left lateral decubitus image. Moderate small bowel dilatation is noted. Small bowel loops measure up to 5 cm in caliber. Small bowel dilatation has decreased since exams of November 18, 2020. There is a paucity of colonic gas. IMPRESSION: 1. Findings suggestive of a persistent, but improving, small bowel obstruction. 2. No free air. ACT 112: Negative or not required by law. ABDOMEN AND PELVIS CT WITH IV CONTRAST (11/18) CT DOSE: 335.68 mGy.cm HISTORY: Acute generalized abdominal pain and vomiting with recent surgery abdominal pain, vomiting, recent surgery TECHNIQUE: Multiaxial CT images of the abdomen and pelvis were performed following the IV administration of 94 cc of Optiray, A dose lowering technique was utilized adhering to the principles of ALARA. COMPARISON STUDY: CT abdomen and pelvis 11/14/2020 FINDINGS: Trace pleural effusions. The imaged inferior cardiac chambers are unremarkable. Mild dependent subsegmental bibasilar atelectasis. No definitive pneumatosis or pneumoperitoneum. The spleen, pancreas and adrenal glands are unremarkable. Hyperdense material within the gallbladder lumen may represent sludge versus vicarious excretion of contrast. Unremarkable liver. Patency of the hepatic and portal veins. There is a focal area of decreased enhancement involving the superior pole right kidney on image 151 series 3 which is new from comparison measuring approximately 1.4 cm. Decompressed or bladder with wall thickening. Uterus and adnexa are unremarkable. Aorta and IVC are unremarkable. There is no adenopathy. Mild distal esophageal wall thickening. Air and fluid-filled moderately distended stomach. Air and fluid-filled dilated loops of small bowel measure up to 4.4 cm transition point is noted within the abdominal right lower quadrant on image 250 of series 3 with decompressed distal small bowel loops. Postoperative changes of appendectomy. Interloop edema with trace abdominal pelvic ascites. No drainable fluid collection. Several loops of small bowel within the abdominal right lower quadrant demonstrates circumferential wall thickening. Decompressed a sending colon. Unremarkable soft tissues. No acute fracture. IMPRESSION: 1. Postoperative changes of interval appendectomy. 2. Small bowel obstruction with transition point within the abdominal right lower quadrant. There is associated interloop edema with. Trace abdominal pelvic ascites. No drainable fluid collection. 3. Trace pleural effusions. ACT 112: Negative or not required by law. The above report was generated using voice recognition software. It may contain grammatical, syntax or spelling errors. Medications Administered Current Inpatient Medications Acetaminophen (Acetaminophen 325 Mg Tab) 650 mg PO Q6H PRN PRN Reason: Pain & Pre PT Stop: 12/18/20 12:09 Last Admin: 11/20/20 22:13 Dose: 650 mg Documented by: Famotidine (Famotidine 20 Mg Tab) 20 mg PO DAILY JINNY Stop: 12/18/20 14:44 Last Admin: 11/20/20 09:38 Dose: 20 mg Documented by: Ciprofloxacin (Cipro / D5w) 400 mg in 200 mls @ 100 mls/hr IV Q12H JINNY; Prot ocol Stop: 11/28/20 12:59 Last Infusion: 11/21/20 03:32 Dose: Infused Documented by: Metronidazole (Flagyl) 500 mg in 100 mls @ 100 mls/hr IV Q8H JINNY; Protocol Stop: 11/28/20 14:59 Last Infusion: 11/20/20 23:12 Dose: Infused Documented by: Potassium Chloride/Sodium Chloride (Normal Saline W/20 Meq Kcl) 20 meq in 1,000 mls @ 100 mls/hr IV .Q10H JINNY Stop: 11/21/20 16:00 Last Admin: 11/21/20 03:52 Dose: Not Given Documented by: Potassium Phosphate 21 mmol/ (Sodium Chloride) 507 mls @ 88 mls/hr IV ONE ONE Stop: 11/21/20 13:30 Dextrose (D10w) 1,000 mls @ 0 mls/hr IV .Q0M PRN PRN Reason: protocol (see label comments) Stop: 12/21/20 07:45 Lorazepam (Lorazepam 0.5 Mg Tab) 0.5 mg PO HS PRN PRN Reason: Insomnia Stop: 12/18/20 14:38 Metoprolol Succinate (Metoprolol Succ 25mg Ext Rel Tab) 25 mg PO HS JINNY Stop: 12/18/20 20:59 Last Admin: 11/20/20 20:42 Dose: Not Given Documented by: Metoprolol Succinate (Metoprolol Succ 25mg Ext Rel Tab) 12.5 mg PO QAM [facility] Stop: 12/19/20 08:59 Last Admin: 11/20/20 09:39 Dose: 12.5 mg Documented by: Miscellaneous Information (Tpn/Ppn Consult Pharmacy) 1 ea N/A UD PRN PRN Reason: Consult Stop: 12/21/20 07:42 Ondansetron HCl (Ondansetron Inj 2 Mg/Ml 2 Ml Vial) 4 mg IV Q4H PRN PRN Reason: Nausea And Vomiting Stop: 12/18/20 12:09 Last Admin: 11/21/20 03:18 Dose: 4 mg Documented by: Potassium Chloride (Potassium Chloride 20 Meq/15 Ml Udc) 20 meq PO BID17 [facility] Stop: 12/19/20 08:59 Last Admin: 11/20/20 17:33 Dose: 20 meq Documented by:
[2020-11-21] MEDS: metroNIDAZOLE 500 MG/100 ML BAG IV SCH (08:53)
[2020-11-21] MEDS: METOPROLOL SUCC 25MG EXT REL TAB PO SCH (09:01)
[2020-11-21] MEDS: POTASSIUM CHLORIDE 20 MEQ/15 ML UDC PO SCH ×2 (09:01→21:42)
[2020-11-21] MEDS: FAMOTIDINE 20 MG TAB PO SCH (09:02)
--- NOTE | 2020-11-21 09:27 | Gastroenterology Progress Note ---
Date of Service November 21, 2020 Assessment & Plan (1) Small bowel obstruction due to adhesions: Plan: Patient with a history of acute appendicitis now with evidence of a small bowel obstruction on imaging study. I wonder if this is related to her prior history of endometriosis and lysis of adhesions in 2005. I did discuss the case extensively with Dr. Buck this morning, after a long discussion we have decided that placement of an NG tube may be the best approach for this patient at the present time. Recommendations Continue empiric use of ciprofloxacin NG tube to be placed today to low intermittent suction Recommend a daily KUB If patient not improving in 24 hours would consider a repeat CT scan with enteral contrast or perhaps an MR enterography Admission and Anticipated Discharge Date Admission Date: November 18, 2020 Subjective The patient was seen by one of my partners earlier this week for evaluation of a suspected postoperative ileus. She began to have symptoms on Sunday which ultimately resulted in needing an appendectomy. After the appendectomy the patient began to have his symptoms of worsening distention nausea and copious amounts of diarrhea. This is persisted for most of the past 1 week. She notes that with any intake of p.o. she does develop nausea but no emesis. Imaging from admission on Sunday does indicate evidence of a small bowel obstruction with a transition point in the distal small intestine. The patient's history is notable for endometriosis for which she underwent a lysis of adhesions in 2005. Review of Systems Constitutional: + malaise and + weakness; no fever and no sweats Eyes: no diplopia Respiratory: no change in sputum and no hemoptysis Cardiovascular: no chest pain with activity and no dyspnea at rest Physical Exam Constitutional: + ill appearing; no acute distress Neck: trachea midline, no thyromegaly Respiratory: normal respiratory effort, lungs clear to auscultation Cardiovascular: RRR, no murmur, no edema Gastrointestinal (Abdomen): High-pitched bowel sounds heard in the right lower quadrant, moderate distention of the abdomen, diffuse nonfocal tenderness without peritoneal signs Results & Data ([facility]) Vital Signs (Past 12 Hours) Vital Signs Temp Pulse Resp BP Pulse Ox 11/21/20 07:42 36.8 C 88 16 126/84 97 11/20/20 23:08 37.3 C 97 H 14 132/84 97 Laboratory Results Laboratory Results - last 24 hr 11/21/20 11/21/20 05:56 05:56 Sodium 139 Potassium 3.3 L Chloride 107 Carbon Dioxide 25 Anion Gap 7.0 BUN 2 L Creatinine 0.56 L Est Cr Clr Drug Dosing 106.0 Est GFR ( Amer) 131.4 Est GFR (Non-Af Amer) 113.4 BUN/Creatinine Ratio 4.2 L Glucose 117 H Calcium 7.7 L Phosphorus 2.0 L Magnesium 2.2 Total Bilirubin 0.6 AST 7 L ALT 11 L Alkaline Phosphatase 47 Total Protein 5.6 L Albumin 2.1 L Globulin 3.5 Albumin/Globulin Ratio 0.6 L Triglycerides 39 Diagnostic Findings X-ray 11-21-20 LEFT LATERAL DECUBITUS AND SUPINE AP RADIOGRAPHS OF THE ABDOMEN AND PELVIS CLINICAL HISTORY: h/o sbo/ ileus COMPARISON STUDY: Abdominal series and CT of the abdomen and pelvis November 18, 2020. FINDINGS: No free air is evident on the left lateral decubitus image. Moderate small bowel dilatation is noted. Small bowel loops measure up to 5 cm in caliber. Small bowel dilatation has decreased since exams of November 18, 2020. There is a paucity of colonic gas. IMPRESSION: 1. Findings suggestive of a persistent, but improving, small bowel obstruction. 2. No free air. CT 11-18-[address] WITH IV CONTRAST CT DOSE: 335.68 mGy.cm HISTORY: Acute generalized abdominal pain and vomiting with recent surgery abdominal pain, vomiting, recent surgery TECHNIQUE: Multiaxial CT images of the abdomen and pelvis were performed following the IV administration of 94 cc of Optiray, A dose lowering technique was utilized adhering to the principles of ALARA. COMPARISON STUDY: CT abdomen and pelvis 11/14/2020 FINDINGS: Trace pleural effusions. The imaged inferior cardiac chambers are unremarkable. Mild dependent subsegmental bibasilar atelectasis. No definitive pneumatosis or pneumoperitoneum. The spleen, pancreas and adrenal glands are unremarkable. Hyperdense material within the gallbladder lumen may represent sludge versus vicarious excretion of contrast. Unremarkable liver. Patency of the hepatic and portal veins. There is a focal area of decreased enhancement involving the superior pole right kidney on image 151 series 3 which is new from comparison measuring approximately 1.4 cm. Decompressed or bladder with wall thickening. Uterus and adnexa are unremarkable. Aorta and IVC are unremarkable. There is no adenopathy. Mild distal esophageal wall thickening. Air and fluid-filled moderately distended stomach. Air and fluid-filled dilated loops of small bowel measure up to 4.4 cm transition point is noted within the abdominal right lower quadrant on image 250 of series 3 with decompressed distal small bowel loops. Postoperative changes of appendectomy. Interloop edema with trace abdominal pelvic ascites. No drainable fluid collection. Several loops of small bowel within the abdominal right lower quadrant demonstrates circumferential wall thickening. Decompressed a sending colon. Unremarkable soft tissues. No acute fracture. IMPRESSION: 1. Postoperative changes of interval appendectomy. 2. Small bowel obstruction with transition point within the abdominal right lower quadrant. There is associated interloop edema with. Trace abdominal pelvic ascites. No drainable fluid collection. 3. Trace pleural effusions.
--- NOTE | 2020-11-21 13:35 | Pharmacy Report ---
Pharmacy PN Initial Consult - Date of Service November 21, 2020 - Scope Pharmacy has been consulted to manage parenteral nutrition orders and order appropriate labs. As part of the Nutrition Support Team guidelines, pharmacy will work in conjunction with dietary when determining the patients caloric needs. - Subjective The patient is a 45 year old F admitted on 11/18/20 12:11 for POST OP ABDOMINAL DISTENTION. Patient is to receive parenteral nutrition for possible SBO and prolonged minimal po intake. - Objective Height: 5 ft 3 in Weight: 62.7 kg Diet: Clear Liquid Vascular Access:: Peripheral - OK to use for PPN per IV team (Lisa) Intake & Output (Last 24Hrs): Intake & Output 11/19/20 11/20/20 11/21/20 11/22/20 06:59 06:59 06:59 06:59 Intake Total 2253.749 / 2253.749 3014.582 / 3014.582 2726.250 / 2726.250 655 / 655 Output Total 500 / 500 2400 / 2400 1675 / 1675 300 / 300 Balance 1753.749 / 1753.749 614.582 / 822.989 2039.250 / 1051.250 355 / 355 Weight 62.7 kg Additional Fluid Losses/Gains:: Significant diarrhea Laboratory Data (Last 24 Hrs):: 11/21/20 11/21/20 05:56 05:56 Sodium 139 Potassium 3.3 L Chloride 107 Carbon Dioxide 25 BUN 2 L Creatinine 0.56 L Glucose 117 H Calcium 7.7 L Phosphorus 2.0 L Magnesium 2.2 Total Bilirubin 0.6 AST 7 L ALT 11 L Alkaline Phosphatase 47 Albumin 2.1 L Triglycerides 39 Nutrition Assessment:: Please refer to the Notes section of the EMR for the most recent desulphurizer operator note. - Assessment Patient at high risk for re-feeding due to prolonged minimal po intake. Also has electrolyte derangements at baseline due to diarrhea. Replacement with potassium phosphate 21 mmol prior to PPN starting, and has potassium chloride 20 mEq po BID ongoing ordered as well. - Plan For day 1 of PN administration, the following will be ordered: Macronutrients Amino acids 60 grams/day Dextrose 100 grams/day Lipids 20 grams/day Micronutrients Combined electrolytes 20 mL - contains 35 mEq Na, 20 meq K, 4.5 mEq Ca, 5 mEq Mg, 35 mEq Cl, 29.5 mEq acetate per 20 mL Sodium chloride 75 mEq Sodium acetate 80 mEq Potassium phosphate 18 mMol Multivitamins 10 mL Trace Elements 10 mL Thiamine 100 mg Folic acid 1 mg Total volume 2400 mL to be infused over 24 hrs will provide 800 kcal/day Final osmolarity 670 mOsm/L (maximum for PPN is 900 mOsm/L) Labs to be ordered per PN order protocol Pharmacy will follow and adjust parenteral nutrition orders on a daily basis. Thank you.
[2020-11-21] MEDS ORDERED: MoRPHine SULFATE 2 MG/ML CARP IV PRN (13:59)
[2020-11-21] MEDS ORDERED: Custom Peripheral Pn 2,400 ML in TPN BAG 0 ML IV SCH (16:00)
[2020-11-21] MEDS ORDERED: METOPROLOL TARTRATE 25 MG TAB PO SCH ×3 (21:00→21:30)
[2020-11-21] MEDS ORDERED: POTASSIUM CHLORIDE 20 MEQ/15 ML UDC PO STA (21:26)
[2020-11-21] MEDS ORDERED: FUROSEMIDE 20 MG in SYRINGE 0 ML IV ONE (21:30)
[2020-11-21] MEDS ORDERED: Nursing to Pharmacy Communication SCH (22:30)
[2020-11-22] MEDS: CIPROFLOXACIN / D5W 400 MG/200 ML BAG IV SCH ×2 (00:20→14:31)
[2020-11-22] MEDS ORDERED: FUROSEMIDE 20 MG in SYRINGE 0 ML IV ONE ×2 (06:00→19:47)
[2020-11-22] MEDS ORDERED: LORazepam 0.5 MG/1 ML VIAL IV PRN (06:14)
--- NOTE | 2020-11-22 06:22 | Surgery Progress Note ---
Date of Service November 22, 2020 Assessment & Plan (1) SBO (small bowel obstruction): Plan: Trying to reassure her- We will obtain a CAT scan with contrast and assess transit Continue NG tube She is now on PPN We will add some IV Ativan at her request for anxiety Asked cardiology to see hershe may need PCU for IV beta-joel as she is very concerned about her heart rate Check an EKG Still concerned about a partial bowel obstruction and possible need for surgery at some point Her reassurance is very challenging and she is very upset about having to stay in the hospital Check a.m. labs-she has refused Lasix until we check her electrolytes Admission and Anticipated Discharge Date Admission Date: November 18, 2020 Subjective Patient is extremely anxious Her vital signs are stable She seemed to do somewhat better overnight and was walking in the peoples with less pain No pain medication is taken NG tube has 200 cc last shift which appears to be relatively clear gastric fluid Review of Systems Review of Systems: All systems reviewed & are unremarkable except as noted in HPI & below Physical Exam Physical Exam: Patient is sitting in the chair and I had her get in bed Her abdomen is softer she has decreased bowel sounds -still some mild distention Minimal tenderness She has some peripheral edema Constitutional: no acute distress Eyes: + anicteric sclerae Respiratory: normal respiratory effort; no respiratory distress Cardiovascular: Rate/Rhythm: regular rate Gastrointestinal (Abdomen): Inspection/Auscultation: + abdomen distended Musculoskeletal: Head/Neck/Chest: head atraumatic Skin: no rashes, warm and dry Neurologic: awake Psychiatric: Orientation: alert Results & Data ([facility]) Vital Signs (Past 12 Hours) Vital Signs Temp Pulse Resp BP Pulse Ox 11/22/20 06:14 101 H 18 127/84 97 11/22/20 02:22 36.9 C 97 H 14 126/85 95 11/21/20 21:40 92 H 20 119/77 98 11/21/20 19:04 36.8 C 100 H 15 138/86 98 PG Care Time/CCT Total # of Minutes Spent Total Time Spent with Patient: Total time spent is greater than 50% in coordination of care (as documented) at patient's floor/unit and/or counseling patient: Coding Level of Care Code 95334 Subseq Hosp Care Lvl 3 Diagnoses SBO (small bowel obstruction) K56.609
[2020-11-22 06:38] LABS: Basophils # (auto) 0.01 K/uL (0-0.2); Basophils % (auto) 0.1 %; Eosinophils # (auto) 0.04 K/uL (0-0.5); Eosinophils % (auto) 0.4 %; Hematocrit (blood only) 32.2 % (37-47); Hemoglobin 10.9 g/dL (12.0-16.0); Immature Granulocytes # (auto) 0.03 K/uL (0.00-0.02); Immature Granulocytes % (auto) 0.3 %; Lymphocytes # (auto) 0.92 K/uL (1.2-3.4); Lymphocytes % (auto) 10.1 %; Mean Corpuscular Hemoglobin 31.9 pg (25-34); Mean Corpuscular Hgb Conc 33.9 g/dL (32-36); Mean Corpuscular Volume 94.2 fL (80-100); Mean Platelet Volume 9.6 fL (7.4-10.4); Monocytes # (auto) 1.16 K/uL (0.11-0.59); Monocytes % (auto) 12.7 %; Neutrophils # (auto) 6.95 K/uL (1.4-6.5); Neutrophils % (auto) 76.4 %; Platelet Count 311 K/uL (130-400); RDW Coefficient of Variation 13.9 % (11.5-14.5); RDW Standard Deviation 47.9 fL (36.4-46.3); Red Blood Count 3.42 M/uL (4.2-5.4); White Blood Count 9.11 K/uL (4.8-10.8)
[2020-11-22 07:07] LABS: BUN Creatinine Ratio 11.8 (10-20); Calcium 7.9 mg/dl (8.5-10.1); Creatinine Clr Calc Pharmacy 127.6 ml/min; Est GFR (African American) 135.5 ml/min; Est GFR (Non-African American) 116.9 ml/min; Magnesium 2.1 mg/dl (1.8-2.4); Potassium 3.5 mmol/L (3.5-5.1)
--- NOTE | 2020-11-22 08:33 | Electrocardiogram Report ---
Test Reason : Blood Pressure : / mmHG Vent. Rate : 090 BPM Atrial Rate : 090 BPM P-R Int : 090 ms QRS Dur : 082 ms QT Int : 382 ms P-R-T Axes : 050 057 021 degrees QTc Int : 467 ms Sinus rhythm with short AK Otherwise normal ECG No previous ECGs available Confirmed by Yuriy Tirado ([id number]) on 11/22/2020 8:33:03 AM Referred By: REFERRED SELF Confirmed By:Yuriy Tirado
[2020-11-22] MEDS ORDERED: OPTIRAY 320 100ml IV ONE (08:53)
[2020-11-22] MEDS ORDERED: METOPROLOL TARTRATE 25 MG TAB PO SCH ×2 (09:00)
--- NOTE | 2020-11-22 09:12 | Gastroenterology Progress Note ---
Date of Service November 22, 2020 Assessment & Plan (1) Small bowel obstruction due to adhesions: Plan: 45 year old female s/p appy admitted w/ diarrhea abd distiention w/ small bowel obstruction on imaging study. 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 NPO CT today per gen surgery Continue ABX E-Lytes management per primary team OP EGD/Colonoscopy Thank you for allowing us to participate in the care of this patient. Please call with any acute changes, questions or concerns. Please see addendum below with additional recommendation from my supervising physician. Admission and Anticipated Discharge Date Admission Date: November 18, 2020 Supervising Physician Co-Signing Physician Notes I have personally seen and examined the patient with DANNA Santos. Her note reflects my exam and findings. I agree with her impression and plan. CT reviewed and case discussed with surgery. Patient is improving and contrast flows through GI tract. Cont bowel rest and peripheral nutrition. Matteo Quezada M.D. Subjective Pt was seen and evaluated, chart reviewed NG in place PPN started Persistent abd distention Moving liquid stools No black or bloody stools Is anxious, overwhelmed, wants to be with family Review of Systems Review of Systems: All systems reviewed & are unremarkable except as noted in HPI & below Physical Exam Constitutional: WD/WN, vitals as above Neck: trachea midline, no thyromegaly Respiratory: normal respiratory effort, lungs clear to auscultation Cardiovascular: RRR, no murmur, no edema Gastrointestinal (Abdomen): Inspection/Auscultation: abdomen normal to inspection, + abdomen distended and normal bowel sounds Percussion/Palpation: + abdomen tender and abdomen soft; no guarding, abdomen not rigid, no abdominal mass and no ascites Skin: no rashes, warm and dry Results & Data ([facility]) Vital Signs (Past 12 Hours) Vital Signs Temp Pulse Resp BP Pulse Ox 11/22/20 06:14 101 H 18 127/84 97 11/22/20 02:22 36.9 C 97 H 14 126/85 95 11/21/20 21:40 92 H 20 119/77 98 Laboratory Results 11/22/20 11/22/20 11/22/20 Range/Units 06:02 06:02 05:54 WBC 9.11 (4.8-10.8) K/uL RBC 3.42 L (4.2-5.4) M/uL Hgb 10.9 L (12.0-16.0) g/dL Hct 32.2 L (37-47) % MCV 94.2 (80-100) fL MCH 31.9 (25-34) pg MCHC 33.9 (32-36) g/dL RDW Std Deviation 47.9 H (36.4-46.3) fL RDW Coeff of Jony 13.9 (11.5-14.5) % Plt Count 311 (130-400) K/uL MPV 9.6 (7.4-10.4) fL Immature Gran % (Auto) 0.3 % Neut % (Auto) 76.4 % Lymph % (Auto) 10.1 % Tyrrell % (Auto) 12.7 % Eos % (Auto) 0.4 % Baso % (Auto) 0.1 % Neut # (Auto) 6.95 H (1.4-6.5) K/uL Lymph # (Auto) 0.92 L (1.2-3.4) K/uL Tyrrell # (Auto) 1.16 H (0.11-0.59) K/uL Eos # (Auto) 0.04 (0-0.5) K/uL Baso # (Auto) 0.01 (0-0.2) K/uL Immature Gran # (Auto) 0.03 H (0.00-0.02) K/uL Sodium 138 (136-145) mmol/L Potassium 3.5 (3.5-5.1) mmol/L Chloride 105 (98-107) mmol/L Carbon Dioxide 28 (21-32) mmol/L Anion Gap 5.0 (3-11) BUN 6 L (7-18) mg/dl Creatinine 0.51 L (0.6-1.2) mg/dl Est Cr Clr Drug Dosing 127.6 ml/min Est GFR ( Amer) 135.5 ml/min Est GFR (Non-Af Amer) 116.9 ml/min BUN/Creatinine Ratio 11.8 (10-20) Glucose 123 H (70-99) mg/dl POC Glucose 122 H (70-99) mg/dl Calcium 7.9 L (8.5-10.1) mg/dl Phosphorus 2.0 L (2.5-4.9) mg/dl Magnesium 2.1 (1.8-2.4) mg/dl Norovirus RNA (PCR) 11/22/20 11/22/20 11/21/20 Range/Units 05:10 00:03 18:13 WBC (4.8-10.8) K/uL RBC (4.2-5.4) M/uL Hgb (12.0-16.0) g/dL Hct (37-47) % MCV (80-100) fL MCH (25-34) pg MCHC (32-36) g/dL RDW Std Deviation (36.4-46.3) fL RDW Coeff of Jony (11.5-14.5) % Plt Count (130-400) K/uL MPV (7.4-10.4) fL Immature Gran % (Auto) % Neut % (Auto) % Lymph % (Auto) % Tyrrell % (Auto) % Eos % (Auto) % Baso % (Auto) % Neut # (Auto) (1.4-6.5) K/uL Lymph # (Auto) (1.2-3.4) K/uL Tyrrell # (Auto) (0.11-0.59) K/uL Eos # (Auto) (0-0.5) K/uL Baso # (Auto) (0-0.2) K/uL Immature Gran # (Auto) (0.00-0.02) K/uL Sodium (136-145) mmol/L Potassium (3.5-5.1) mmol/L Chloride (98-107) mmol/L Carbon Dioxide (21-32) mmol/L Anion Gap (3-11) BUN (7-18) mg/dl Creatinine (0.6-1.2) mg/dl Est Cr Clr Drug Dosing ml/min Est GFR ( Amer) ml/min Est GFR (Non-Af Amer) ml/min BUN/Creatinine Ratio (10-20) Glucose (70-99) mg/dl POC Glucose 105 H 92 (70-99) mg/dl Calcium (8.5-10.1) mg/dl Phosphorus (2.5-4.9) mg/dl Magnesium (1.8-2.4) mg/dl Norovirus RNA (PCR) Pending
[2020-11-22] MEDS: METOPROLOL SUCC 25MG EXT REL TAB PO SCH ×2 (09:13→21:14)
--- NOTE | 2020-11-22 09:18 | Hospitalist Progress Note ---
Date of Service November 22, 2020 Assessment & Plan (1) Small bowel obstruction due to adhesions: Plan: 45 yr old F s/p Laparoscopic Appendectomy on 11/[address] Ramirez was d/c to home and readmitted due to N/V, abdominal pain, diarrhea and worsening distension res ulting in electrolyte derangements. Initial CT scanning KUB concerning for small bowel obstruction. Continues to have persistent liquid stool. General Surgery and GI on Board. NGT in place - 200cc of clear gastric fluid overnight. Repeat CT scan on 11/22 reveals findings suggestive of improving small bowel obstruction and mild residual small bowel dilatation. Oral contrast reaches the colon. Increased abdominal and pelvic ascites noted with nonspecific wall thickening of several jejunal loops. Small right and trace left pleural effusions. Discussed with surgery Dr. Buck, pt is improving and sx more likely attributed to Ileus. At this point does not appear surgery warranted. Rotovirus: negative Cdif: negative WBC Stool: negative Stool culture - negative on 11/15 Norovirus: pending E.Coli Shiga - pending Stool culture repeat : pending Continue IV ppn Continue antibiotics Continue NG tube pt not requiring analgesia or antiemetics at this point appears SBO improving with contrast now reaching colon continues to have mesenteric inflammation likely resulting in secretory diarrhea pt requires continued hospitalization for IV ppn therapy (2) Acute diarrhea: Plan: likely secretory in nature 2/2 to bowel wall edema and ileus pending stool studies as above (3) Hypoalbuminemia: Plan: 2/2 to poor intake due to NPO status albumin 2.1 on 11/21 continue ppn follow labs resulting in 3rd spacing and edema/ascites she did received lasix 20mg x 1 this morning but will not continue this add thigh highs (4) S/P appy: Plan: Postoperative incision site looks well and she is doing well from a pain perspective. She has not required any pain medications. (5) Electrolyte abnormality: Plan: K3.5, Phos 2.0 Give 21 normal K-Phos She has been started on PPN Replace electrolytes as needed Daily BMP, Mg, Phos (6) Inappropriate sinus tachycardia: Plan: History of inappropriate sinus tachycardia, currently hemodynamically stable. Remains mildly tachycardic heart rates in 90s, likely situational and anxiety related EKGs reviewed Patient requesting cardiology consult, placed by general surgery continue metoprolol per home regimen (7) Migraine: Plan: Chronic Stable (8) DVT prophylaxis: Plan: SCD/ambulation Full code Disposition-to home when diarrhea improves and she is able to tolerate p.o. reliably with electrolyte stability demonstrated. Thank you for this consultation. We will follow the patient with you during their hospital stay. You can reach a member of the [facility] Hospitalist Team 25/09 via hospitalist role on tiger text. Please contact via Monument text with questions or concerns to Adry Pickering). (9) Abdominal ascites: Admission and Anticipated Discharge Date Admission Date: November 18, 2020 Supervising Physician Co-Signing Physician Notes I have seen and examined the patient and have discussed the case with the provider above. I agree with the assessment and plan as stated. She feels much improved on the PPN and after Lasix given this morning. Her pelvic ascites is improving and we continue to replace her electrolytes. She underwent a CT of the abdomen pelvis with IV contrast revealing improving small bowel obstruction with contrast reaching the colon. She reports her abdominal pain is improving. She did have 2 episodes of loose stool. Physical exam reveals a nondistended soft abdomen that is mildly protuberant with incisional tenderness. Lungs are clear to auscultation bilaterally. No pitting edema in lower extremities but these are somewhat swollen. She is requesting teds and SCDs which were ordered. She is requesting to shower, order placed. Overall doing better, agree with plan as above. Thank you for this consultation. We will continue to follow the patient during his hospital stay. DO Loida Clemens Pt was seen and examined in room 314-1. F/U S/p Appendectomy now with SBO and electrolyte derangements. She is sitting up at bedside, very frustrated. She is wishing to see her family. Continues to complain of abdominal discomfort and distension. She has not required any pain medications. She denies nausea, f/c/s, chest pain, sob, melena or hematochezia. She is passing flatus and had 2 liquid stools this morning. Review of Systems Review of Systems: All systems reviewed & are unremarkable except as noted in HPI & below Physical Exam Physical Exam: Gen: acutely ill feeling, sitting up in bedside chair, NAD, A&O x3, answers questions appropriately HEENT: Normocephalic, atraumatic, conjunctivae moist, sclerae anicteric, mucous membranes moist. +NG tube in place Lung: Clear to Auscultation bilaterally, decreased BS at bases, no wheezes/rales/rhonchi Heart: tachycardic rate, regular rhythm, no murmurs, rubs, or gallops Abdomen: distended abd, incisions cdi, firm, tender RUQ, no rebound, guarding, +BS x 4 Extremities: proximal thigh edema, trace pretibial Slin: Warm, no rash, negative turgor. Results & Data Results & Data ([facility]) Vital Signs (Past 12 Hours) Vital Signs Temp Pulse Resp BP Pulse Ox 11/22/20 06:14 101 H 18 127/84 97 11/22/20 02:22 36.9 C 97 H 14 126/85 95 11/21/20 21:40 92 H 20 119/77 98 Laboratory Results Short CBC 11/22/20 Range/Units 06:02 WBC 9.11 (4.8-10.8) K/uL Hgb 10.9 L (12.0-16.0) g/dL Hct 32.2 L (37-47) % Plt Count 311 (130-400) K/uL BMP 11/22/20 06:02 Sodium 138 Potassium 3.5 Chloride 105 Carbon Dioxide 28 BUN 6 L Creatinine 0.51 L Glucose 123 H Calcium 7.9 L Diagnostic Findings Abdomen/Pelvis CT 11/22/20 06:16 CT OF THE ABDOMEN AND PELVIS WITH CONTRAST CLINICAL HISTORY: Small bowel obstruction. Appendectomy on November 15, 2020. COMPARISON STUDY: CT of the abdomen and pelvis November 18, 2020. Abdominal series November 21, 2020. TECHNIQUE: Following IV administration of 94 mL of Optiray, axial images of the abdomen and pelvis were obtained from the lung bases to the proximal femurs. Images were reviewed in the axial, sagittal, and coronal planes. IV contrast was administered without complication. Automated exposure control was utilized for the study. A dose lowering technique was utilized adhering to the principles of ALARA. Oral contrast was administered. CT DOSE: 339.31 mGy.cm FINDINGS: Small right and trace left pleural effusions are noted. Tip of nasogastric tube is within the distal body of the stomach. No pneumatosis, free air or portal venous gas is present. The liver, spleen, adrenal glands, left kidney and pancreas are unremarkable. There is no biliary or pancreatic ductal dilatation. A 1.5 cm wedge-shaped hypoenhancing focus within the upper pole of the right kidney is similar to CT of November 18, 2020. This is new since CT of November 14, 2020. Abdominal and pelvic ascites has increased since prior exam. There is persistent mesenteric infiltration. Small bowel dilatation has improved since exam of November 18, 2020. There is mild residual small bowel dilatation. Wall thickening of several jejunal loops is present. Oral contrast reaches the colon. The distal small bowel is relatively decompressed however no well-defined transition point is identified. The findings represent an improving small bowel obstruction. Major vasculature is patent. No fluid collection is identified to suggest an abscess. There are postoperative findings consistent with appendectomy. There is mild body wall edema. IMPRESSION: 1. Findings suggestive of an improving small bowel obstruction. Mild residual small bowel dilatation decreased since prior CT. Oral contrast reaches the colon. 2. Abdominal and pelvic ascites, increased since prior exam. Nonspecific wall thickening of several jejunal loops. No free air. No abscess. 3. Small right and trace left pleural effusions. ACT 112: Negative or not required by law. Electronically signed by: Flo Lamas M.D. 11/22/2020 9:26 AM Medications Administered Current Inpatient Medications Acetaminophen (Acetaminophen 325 Mg Tab) 650 mg PO Q6H PRN PRN Reason: Pain & Pre PT Stop: 12/18/20 12:09 Last Admin: 11/20/20 22:13 Dose: 650 mg Documented by: Famotidine (Famotidine 20 Mg Tab) 20 mg PO DAILY JINNY Stop: 12/18/20 14:44 Last Admin: 11/21/20 09:02 Dose: 20 mg Documented by: Ciprofloxacin (Cipro / D5w) 400 mg in 200 mls @ 100 mls/hr IV Q12H JINNY; Protocol Stop: 11/28/20 12:59 Last Infusion: 11/22/20 02:18 Dose: Infused Documented by: Dextrose (D10w) 1,000 mls @ 0 mls/hr IV .Q0M PRN PRN Reason: protocol (see label comments) Stop: 12/21/20 07:45 Nutrition (Parenteral) 2,400 (ml/ TPN BAG) 2,400 mls @ 100 mls/hr IV .Q24H JNINY; Protocol Stop: 11/22/20 15:59 Last Admin: 11/21/20 17:07 Dose: 100 mls/hr Documented by: Lorazepam (Ativan) 0.5 mg in 1 mls @ 1 mls/min IV Q4RWA PRN PRN Reason: Anxiety Stop: 12/22/20 06:13 Pantoprazole Sodium 40 mg/ (Syringe) 10 mls @ 5 mls/min IV DAILY@1100 [facility] Stop: 12/22/20 10:59 Potassium Phosphate 21 mmol/ (Sodium Chloride) 507 mls @ 144 mls/hr IV ONE ONE Stop: 11/22/20 13:46 Metoprolol Succinate (Metoprolol Succ 25mg Ext Rel Tab) 25 mg PO HS [facility] Stop: 12/22/20 20:59 Metoprolol Succinate (Metoprolol Succ 25mg Ext Rel Tab) 12.5 mg PO QAM [facility] Stop: 12/22/20 08:59 Last Admin: 11/22/20 09:13 Dose: 12.5 mg Documented by: Miscellaneous Information (Tpn/Ppn Consult Pharmacy) 1 ea N/A UD PRN PRN Reason: Consult Stop: 12/21/20 07:42 Morphine Sulfate (Morphine Sulfate 2 Mg/Ml Carp) 2 mg IV Q6H PRN PRN Reason: severe pain Stop: 12/05/20 13:58 Ondansetron HCl (Ondansetron Inj 2 Mg/Ml 2 Ml Vial) 4 mg IV Q4H PRN PRN Reason: Nausea And Vomiting Stop: 12/18/20 12:09 Last Admin: 11/21/20 03:18 Dose: 4 mg Documented by: Potassium Chloride (Potassium Chloride 20 Meq/15 Ml Udc) 20 meq PO [id number] [facility] Stop: 12/19/20 08:59 Last Admin: 11/21/20 21:42 Dose: 20 meq Documented by: ECG Rate (beats per minute): 90 Rhythm: normal sinus
--- NOTE | 2020-11-22 09:27 | CT Scan Report ---
CT OF THE ABDOMEN AND PELVIS WITH CONTRAST CLINICAL HISTORY: Small bowel obstruction. Appendectomy on November 15, 2020. COMPARISON STUDY: CT of the abdomen and pelvis November 18, 2020. Abdominal series November 21. TECHNIQUE: Following IV administration of 94 mL of Optiray, axial images of the abdomen and pelvis we re obtained from the lung bases to the proximal femurs. Images were reviewed in the axial, sagittal, and coronal planes. IV contrast was administered without complication. Automated exposure control wa s utilized for the study. A dose lowering technique was utilized adhering to the principles of ALARA . Oral contrast was administered. CT DOSE: 339.31 mGy.cm FINDINGS: Small right and trace left pleural effusions are noted. Tip of nasogastric tube is within t he distal body of the stomach. No pneumatosis, free air or portal venous gas is present. The liver, s pleen, adrenal glands, left kidney and pancreas are unremarkable. There is no biliary or pancreatic d uctal dilatation. A 1.5 cm wedge-shaped hypoenhancing focus within the upper pole of the right kidney is similar to CT of November 18, 2020. This is new since CT of November 14, 2020. Abdominal and pe lvic ascites has increased since prior exam. There is persistent mesenteric infiltration. Small bowel dilatation has improved since exam of November 18, 2020. There is mild residual small bowel dilatat ion. Wall thickening of several jejunal loops is present. Oral contrast reaches the colon. The distal small bowel is relatively decompressed however no well-defined transition point is identified. The f indings represent an improving small bowel obstruction. Major vasculature is patent. No fluid collect ion is identified to suggest an abscess. There are postoperative findings consistent with appendectom y. There is mild body wall edema. IMPRESSION: 1. Findings suggestive of an improving small bowel obstruction. Mild residual small bowel dilatation decreased since prior CT. Oral contrast reaches the colon. 2. Abdominal and pelvic ascites, increased since prior exam. Nonspecific wall thickening of several j ejunal loops. No free air. No abscess. 3. Small right and trace left pleural effusions. ACT 112: Negative or not required by law. Electronically signed by: Flo Lamas M.D. 11/22/2020 9:26 AM
[2020-11-22] MEDS ORDERED: POTASSIUM PHOS 3 MMOL/1 ML INFUSION IV STA (10:07)
[2020-11-22] MEDS ORDERED: POTASSIUM PHOSPHATE 21 MMOL in SODIUM CHLORIDE 0.9% 500 ML IV ONE (10:15)
[2020-11-22] MEDS ORDERED: PANTOprazole 40 MG in SYRINGE 0 ML IV SCH (11:00)
[2020-11-22] MEDS: POTASSIUM CHLORIDE 20 MEQ/15 ML UDC PO SCH ×2 (11:58→21:15)
--- NOTE | 2020-11-22 13:27 | Cardiology Consultation ---
Date of Consultation November 22, 2020 Assessment & Plan (1) Small bowel obstruction due to adhesions: (2) S/P appy: (3) Inappropriate sinus tachycardia: (4) Electrolyte abnormality: Patient admitted for SBO, after having appendectomy last week. Multiple days of no PO nutrition with electrolyte imbalances. TPN started yesterday. SBO improving per CT scan earlier today. EKG today demonstrated NSR, with HR's around 90 BPM, similar to prior EKG's. reassurance provided. continue current home dose of metoprolol 25 mg in AM And 12.5 mg in PM. Acceptable to use IV lasix with potassium supplementation to aid with abdominal ascites to maintain volume status. No further cardiac testing warranted at this time. Case discussed with Dr. Ortega. Supervising Physician Co-Signing Physician Notes I have reviewed the case with Heron. I have studied the medical record and examined the patient today. Her problems seem to have started because she has been on metoprolol for many years. When she came into the hospital this time she could not swallow the long-acting metoprolol and there was some concern for tachycardia. Currently she informs me that she has been able to take her oral dose of metoprolol XL last night and again this morning. Currently her heart rate is adequately controlled. History of Present Illness Reason for Consultation: Sinus tachycardia; Palpitations Requesting Physician: Dr Buck Attending Physician: Dr. Ortega History of Present Illness Patient is a 45-year-old female who Is known to [facility], following with Dr. Ng for history of inappropriate sinus tachycardia controlled on beta-joel therapy with short AL interval. She was previously evaluated by EP for short AL, who felt this was not diagnostic of WPW. She also carries a history of sense ventricular ectopy and trivial PFO. She was admitted to [facility] several days ago for a small-bowel obstruction. She had an appendectomy last week and then developed significant abdominal pain and abdominal distension for which she presented to the emergency department. Since admission, she had NG tube placed. General surgery has been following and feels her obstruction is improving with conservative therapies to avoid repeat surgery. During admission, due to generalized fluid retention and ascites, she was treated with IV Lasix resulting in hypokalemia. During this time, patient felt her heart rate was elevated in the 90s. EKG demonstrated normal sinus rhythm with short AL, consistent with her prior EKGs. At time of consult, patient feeling well. She had a CT scan of her abdomen this morning and apparently the contrast was moving throughout the GI tract, and surgeon felt ongoing conservative therapies were working and surgery to be avoided. She otherwise denies acute complaints. palpitations improved with supplementation of potassium. No sense of palpitations or tachypalpitations currently. No chest pain or SOB. Allergies Allergy/AdvReac Type Severity Reaction Status Date / Time azithromycin Allergy Mild Hives Verified 11/18/20 07:16 Penicillins Allergy Mild HIVES Verified 11/18/20 07:16 lidocaine Allergy Unknown Unknown Verified 11/18/20 07:16 mepivacaine Allergy Unknown TACHYCARDIA Verified 11/18/20 07:16 ,SOB shellfish derived Allergy Unknown Unknown Verified 11/18/20 07:16 Home Medications Medication Instructions Recorded Confirmed Type fluticasone propionate 50 1 spray INTNAS DAILY 05/27/19 11/18/20 History mcg/actuation nasal spray,suspension lorazepam 0.5 mg tablet 0.5 mg PO HS PRN 05/27/19 11/18/20 History metoprolol succinate 25 mg 25 mg PO UD 05/27/19 11/18/20 History tablet,extended release 24 hr multivitamin (Daily Multi-Vitamin) 1 tab PO DAILY 05/27/19 11/18/20 History famotidine 20 mg tablet (Pepcid) 20 mg PO DAILY 11/14/20 11/18/20 History ferrous sulfate 142 mg (45 mg 142 mg PO DAILY 11/14/20 11/18/20 History iron) tablet,extended release (Slow Fe) simethicone 80 mg chewable tablet 80 mg PO BID PRN 11/14/20 11/18/20 History oxycodone 5 mg tablet 5 - 10 mg PO Q4H #15 tab 11/15/20 11/18/20 Rx ciprofloxacin HCl 500 mg tablet 500 mg PO BID #14 tab 11/16/20 11/18/20 Rx metronidazole 500 mg tablet 500 mg PO TID #20 tab 11/16/20 11/18/20 Rx (Flagyl) acetaminophen 325 mg tablet 650 mg PO QID 11/18/20 11/18/20 History calcium carbonate 500 mg calcium 500 mg PO UD 11/18/20 11/18/20 History (1,250 mg) chewable tablet lactobacillus combination no.4 3 1 mmu cells PO DAILY 11/18/20 11/18/20 History billion cell capsule (Probiotic) loperamide 2 mg capsule (Imodium 2 mg PO Q4H PRN 11/18/20 11/18/20 History A-D) Patient History Medical History Anxiety Classic migraine with aura Endometrioma Female infertility Ovarian cyst right, seen since 2017, likely endometrioma Supraventricular tachycardia Thyroid nodule Surgical History History of laparoscopic appendectomy (11/15/20) Diagnostic Laparoscopy, Laparoscopic Appendectomy Dr. Ramirez 11-15-2020 History of laparoscopy diagnostic gynecologic with biopsy History of oral surgery tooth extraction History of tonsillectomy Family History Father Squamous cell carcinoma Grandmother (Maternal) Colorectal cancer Mother Endometriosis Basal cell adenocarcinoma Grandfather (Maternal) Colorectal cancer Aunt Breast cancer paternal Grandmother (Paternal) Breast cancer Denies family history of Ovarian cancer Social History Smoking Status: Never smoker Hx Alcohol Use: No Hx Substance Use: No Preferred Language: Malay Communication Ability: Effective Staffing Consultant Required: No Beliefs That Will Affect Care: None marital status: Current Living Situation: Family Feels Safe at Home: Yes Assistive Devices: Glasses Review of Systems Review of Systems: All systems reviewed & are unremarkable except as noted in HPI & below Physical Exam Constitutional: WD/WN, vitals as above Eyes: PERRL, conjunctivae normal, anicteric sclerae ENMT: external ear and nose normal, oropharynx normal Neck: trachea midline, no thyromegaly Respiratory: normal respiratory effort, lungs clear to auscultation Cardiovascular: RRR, no murmur, no edema Gastrointestinal (Abdomen): Inspection/Auscultation: + abdomen distended; + abnormal bowel sounds (diminished) Percussion/Palpation: + abdomen tender (mild, diffuse tenderness) Musculoskeletal: no cyanosis or clubbing, extremities motor strength 5/5 Skin: no rashes, warm and dry Neurologic: PERRL, EOMI, accommodation nl, no face palsy, no dysarthria Psychiatric: A+Ox3, euthymic affect Results & Data ([facility]) Vital Signs (Past 12 Hours) Vital Signs Temp Pulse Resp BP Pulse Ox 11/22/20 09:23 36.6 C 96 H 20 119/75 100 11/22/20 06:14 101 H 18 127/84 97 11/22/20 02:22 36.9 C 97 H 14 126/85 95 Laboratory Results 11/22/20 11/22/20 11/22/20 Range/Units 12:03 06:02 06:02 WBC 9.11 (4.8-10.8) K/uL RBC 3.42 L (4.2-5.4) M/uL Hgb 10.9 L (12.0-16.0) g/dL Hct 32.2 L (37-47) % MCV 94.2 (80-100) fL MCH 31.9 (25-34) pg MCHC 33.9 (32-36) g/dL RDW Std Deviation 47.9 H (36.4-46.3) fL RDW Coeff of Jony 13.9 (11.5-14.5) % Plt Count 311 (130-400) K/uL MPV 9.6 (7.4-10.4) fL Immature Gran % (Auto) 0.3 % Neut % (Auto) 76.4 % Lymph % (Auto) 10.1 % [place] % (Auto) 12.7 % Eos % (Auto) 0.4 % Baso % (Auto) 0.1 % Neut # (Auto) 6.95 H (1.4-6.5) K/uL Lymph # (Auto) 0.92 L (1.2-3.4) K/uL [place] # (Auto) 1.16 H (0.11-0.59) K/uL Eos # (Auto) 0.04 (0-0.5) K/uL Baso # (Auto) 0.01 (0-0.2) K/uL Immature Gran # (Auto) 0.03 H (0.00-0.02) K/uL Sodium 138 (136-145) mmol/L Potassium 3.5 (3.5-5.1) mmol/L Chloride 105 (98-107) mmol/L Carbon Dioxide 28 (21-32) mmol/L Anion Gap 5.0 (3-11) BUN 6 L (7-18) mg/dl Creatinine 0.51 L (0.6-1.2) mg/dl Est Cr Clr Drug Dosing 127.6 ml/min Est GFR ( Amer) 135.5 ml/min Est GFR (Non-Af Amer) 116.9 ml/min BUN/Creatinine Ratio 11.8 (10-20) Glucose 123 H (70-99) mg/dl POC Glucose 112 H (70-99) mg/dl Calcium 7.9 L (8.5-10.1) mg/dl Phosphorus 2.0 L (2.5-4.9) mg/dl Magnesium 2.1 (1.8-2.4) mg/dl Norovirus RNA (PCR) 11/22/20 11/22/20 11/22/20 Range/Units 05:54 05:10 00:03 WBC (4.8-10.8) K/uL RBC (4.2-5.4) M/uL Hgb (12.0-16.0) g/dL Hct (37-47) % MCV (80-100) fL MCH (25-34) pg MCHC (32-36) g/dL RDW Std Deviation (36.4-46.3) fL RDW Coeff of Jony (11.5-14.5) % Plt Count (130-400) K/uL MPV (7.4-10.4) fL Immature Gran % (Auto) % Neut % (Auto) % Lymph % (Auto) % [place] % (Auto) % Eos % (Auto) % Baso % (Auto) % Neut # (Auto) (1.4-6.5) K/uL Lymph # (Auto) (1.2-3.4) K/uL [place] # (Auto) (0.11-0.59) K/uL Eos # (Auto) (0-0.5) K/uL Baso # (Auto) (0-0.2) K/uL Immature Gran # (Auto) (0.00-0.02) K/uL Sodium (136-145) mmol/L Potassium (3.5-5.1) mmol/L Chloride (98-107) mmol/L Carbon Dioxide (21-32) mmol/L Anion Gap (3-11) BUN (7-18) mg/dl Creatinine (0.6-1.2) mg/dl Est Cr Clr Drug Dosing ml/min Est GFR ( Amer) ml/min Est GFR (Non-Af Amer) ml/min BUN/Creatinine Ratio (10-20) Glucose (70-99) mg/dl POC Glucose 122 H 105 H (70-99) mg/dl Calcium (8.5-10.1) mg/dl Phosphorus (2.5-4.9) mg/dl Magnesium (1.8-2.4) mg/dl Norovirus RNA (PCR) Pending 11/21/20 Range/Units 18:13 WBC (4.8-10.8) K/uL RBC (4.2-5.4) M/uL Hgb (12.0-16.0) g/dL Hct (37-47) % MCV (80-100) fL MCH (25-34) pg MCHC (32-36) g/dL RDW Std Deviation (36.4-46.3) fL RDW Coeff of Jony (11.5-14.5) % Plt Count (130-400) K/uL MPV (7.4-10.4) fL Immature Gran % (Auto) % Neut % (Auto) % Lymph % (Auto) % [place] % (Auto) % Eos % (Auto) % Baso % (Auto) % Neut # (Auto) (1.4-6.5) K/uL Lymph # (Auto) (1.2-3.4) K/uL [place] # (Auto) (0.11-0.59) K/uL Eos # (Auto) (0-0.5) K/uL Baso # (Auto) (0-0.2) K/uL Immature Gran # (Auto) (0.00-0.02) K/uL Sodium (136-145) mmol/L Potassium (3.5-5.1) mmol/L Chloride (98-107) mmol/L Carbon Dioxide (21-32) mmol/L Anion Gap (3-11) BUN (7-18) mg/dl Creatinine (0.6-1.2) mg/dl Est Cr Clr Drug Dosing ml/min Est GFR ( Amer) ml/min Est GFR (Non-Af Amer) ml/min BUN/Creatinine Ratio (10-20) Glucose (70-99) mg/dl POC Glucose 92 (70-99) mg/dl Calcium (8.5-10.1) mg/dl Phosphorus (2.5-4.9) mg/dl Magnesium (1.8-2.4) mg/dl Norovirus RNA (PCR) Diagnostic Findings EKG reviewed dated 11/22/20 Sinus rhythm with short AL otherwise normal EKG compared to prior EKG as outpatient/EPIC, no changes noted Abdominal CT completed this morning IMPRESSION: 1. Findings suggestive of an improving small bowel obstruction. Mild residual small bowel dilatation decreased since prior CT. Oral contrast reaches the colon. 2. Abdominal and pelvic ascites, increased since prior exam. Nonspecific wall thickening of several jejunal loops. No free air. No abscess. 3. Small right and trace left pleural effusions. Medications Administered Current Inpatient Medications Acetaminophen (Acetaminophen 325 Mg Tab) 650 mg PO Q6H PRN PRN Reason: Pain & Pre PT Stop: 12/18/20 12:09 Last Admin: 11/20/20 22:13 Dose: 650 mg Documented by: Famotidine (Famotidine 20 Mg Tab) 20 mg PO DAILY JINNY Stop: 12/18/20 14:44 Last Admin: 11/21/20 09:02 Dose: 20 mg Documented by: Ciprofloxacin (Cipro / D5w) 400 mg in 200 mls @ 100 mls/hr IV Q12H JINNY; Protocol Stop: 11/28/20 12:59 Last Infusion: 11/22/20 02:18 Dose: Infused Documented by: Dextrose (D10w) 1,000 mls @ 0 mls/hr IV .Q0M PRN PRN Reason: protocol (see label comments) Stop: 12/21/20 07:45 Nutrition (Parenteral) 2,400 (ml/ TPN BAG) 2,400 mls @ 100 mls/hr IV .Q24H JINNY; Protocol Stop: 11/22/20 15:59 Last Admin: 11/21/20 17:07 Dose: 100 mls/hr Documented by: Lorazepam (Ativan) 0.5 mg in 1 mls @ 1 mls/min IV Q4RWA PRN PRN Reason: Anxiety Stop: 12/22/20 06:13 Pantoprazole Sodium 40 mg/ (Syringe) 10 mls @ 5 mls/min IV DAILY@1100 [facility] Stop: 12/22/20 10:59 Last Admin: 11/22/20 10:51 Dose: 5 mls/min Documented by: Nutrition (Parenteral) 2,400 (ml/ TPN BAG) 2,400 mls @ 100 mls/hr IV .Q24H [facility]; Protocol Stop: 11/23/20 15:59 Metoprolol Succinate (Metoprolol Succ 25mg Ext Rel Tab) 25 mg PO HS [facility] Stop: 12/22/20 20:59 Metoprolol Succinate (Metoprolol Succ 25mg Ext Rel Tab) 12.5 mg PO QAM [facility] Stop: 12/22/20 08:59 Last Admin: 11/22/20 09:13 Dose: 12.5 mg Documented by: Miscellaneous Information (Tpn/Ppn Consult Pharmacy) 1 ea N/A UD PRN PRN Reason: Consult Stop: 12/21/20 07:42 Morphine Sulfate (Morphine Sulfate 2 Mg/Ml Carp) 2 mg IV Q6H PRN PRN Reason: severe pain Stop: 12/05/20 13:58 Ondansetron HCl (Ondansetron Inj 2 Mg/Ml 2 Ml Vial) 4 mg IV Q4H PRN PRN Reason: Nausea And Vomiting Stop: 12/18/20 12:09 Last Admin: 11/21/20 03:18 Dose: 4 mg Documented by: Potassium Chloride (Potassium Chloride 20 Meq/15 Ml Udc) 20 meq PO [id number] [facility] Stop: 12/19/20 08:59 Last Admin: 11/22/20 11:58 Dose: 20 meq Documented by:
[2020-11-22] MEDS ORDERED: CIPROFLOXACIN / D5W 400 MG/200 ML BAG IV SCH (14:45)
[2020-11-22] MEDS ORDERED: Custom Peripheral Pn 2,400 ML in TPN BAG 0 ML IV SCH (16:00)
[2020-11-23] MEDS: CIPROFLOXACIN / D5W 400 MG/200 ML BAG IV SCH (01:01)
[2020-11-23 07:14] LABS: Albumin Level 2.1 gm/dl (3.4-5.0); BUN Creatinine Ratio 15.6 (10-20); Calcium 8.2 mg/dl (8.5-10.1); Creatinine Clr Calc Pharmacy 127.6 ml/min; Est GFR (African American) 135.5 ml/min; Est GFR (Non-African American) 116.9 ml/min
[2020-11-23 07:22] LABS: Phosphorus 3.4 mg/dl (2.5-4.9)
--- NOTE | 2020-11-23 07:25 | Surgery Progress Note ---
Date of Service November 23, 2020 Assessment & Plan (1) SBO (small bowel obstruction): Plan: Patient with no emesis Bowel movements are becoming more soft Had an excellent response to Lasix- check a.m. labs- Continue PPN NG tube with minimal output-removed We will stop the Cipro -antibiotics per medical/GI team if needed None from a surgical standpoint Dietary evaluation Possibly advance diet over the next 24 to 48 hours Admission and Anticipated Discharge Date Admission Date: November 18, 2020 Results & Data ([facility]) Vital Signs (Past 12 Hours) Vital Signs Temp Pulse Resp BP Pulse Ox 11/23/20 02:28 37.1 C 96 H 14 118/77 97 11/22/20 22:44 36.8 C 85 14 112/78 97 11/22/20 21:12 102 H 116/80 98 11/22/20 20:08 37.1 C 102 H 14 132/84 97 PG Care Time/CCT Total # of Minutes Spent Total Time Spent with Patient: Total time spent is greater than 50% in coordination of care (as documented) at patient's floor/unit and/or counseling patient: Coding Level of Care Code None Diagnoses SBO (small bowel obstruction) K56.609
[2020-11-23] MEDS: METOPROLOL SUCC 25MG EXT REL TAB PO SCH ×2 (08:34→19:34)
[2020-11-23] MEDS: POTASSIUM CHLORIDE 20 MEQ/15 ML UDC PO SCH ×2 (08:34→19:34)
--- NOTE | 2020-11-23 09:20 | Hospitalist Progress Note ---
Date of Service November 23, 2020 Assessment & Plan (1) Small bowel obstruction due to adhesions: Plan: 45 yr old F s/p Laparoscopic Appendectomy on 11/[address] Ramirez was d/c to home and readmitted due to N/V, abdominal pain, diarrhea and worsening distension res ulting in electrolyte derangements. Initial CT scanning KUB concerning for small bowel obstruction. Continues to have persistent liquid stool. General Surgery and GI on Board. NGT in place - 200cc of clear gastric fluid overnight. Repeat CT scan on 11/22 reveals findings suggestive of improving small bowel obstruction and mild residual small bowel dilatation. Oral contrast reaches the colon. Increased abdominal and pelvic ascites noted with nonspecific wall thickening of several jejunal loops. Small right and trace left pleural effusions. Discussed with surgery Dr. Buck, pt is improving and sx more likely attributed to Ileus. At this point does not appear surgery warranted. Rotovirus: negative Cdif: negative WBC Stool: negative Stool culture - negative on 11/15 Norovirus: pending E.Coli Shiga - pending Stool culture repeat : pending Continue IV ppn IV antibiotics discontinued per surgery as not warranted on there end - agree with this NG tube removed pt not requiring analgesia or antiemetics at this point appears SBO improving with contrast now reaching colon continues to have mesenteric inflammation likely resulting in secretory diarrhea pt requires continued hospitalization for IV ppn therapy D/C IV protonix in favor or oral pepcid pt tolerating clear liquid diet, advance diet per surgery recommendations (2) Acute diarrhea: Plan: likely secretory in nature 2/2 to bowel wall edema and ileus pending stool studies as above improving (3) S/P appy: Plan: Postoperative incision site looks well and she is doing well from a pain perspective. She has not required any pain medications. (4) Hypoalbuminemia: Plan: 2/2 to poor intake due to NPO status albumin 2.1 continue ppn follow labs resulting in 3rd spacing and edema/ascites she did received lasix 20mg x 2 yesterday - much improved continue thigh highs/SCDS (5) Abdominal ascites: Plan: 2/2 to third spacing from hypoalbuminemia improving with IV lasix continue PPN (6) Electrolyte abnormality: Plan: K 4.0, Phos 3.4 Continue PPN Replace electrolytes as needed Daily BMP, Mg, Phos (7) IV infiltration: Plan: Distal R IV site apply warm compress TID (8) Inappropriate sinus tachycardia: Plan: History of inappropriate sinus tachycardia, currently hemodynamically stable. Remains mildly tachycardic heart rates in 90s, likely situational and anxiety related EKGs reviewed cardiology has seen and evaluated pt HR controlled now that pt is tolerating oral metoprolol succinate monitor (9) Migraine: Plan: Chronic Stable (10) DVT prophylaxis: Plan: SCD/ambulation Full code Disposition-to home when diarrhea improves and she is able to tolerate p.o. reliably with electrolyte stability demonstrated. Thank you for this consultation. We will follow the patient with you during their hospital stay. You can reach a member of the [facility] Hospitalist Team 25/09 via hospitalist role on tiger text. Please contact via [place] text with questions or concerns to Adry Pickering). Admission and Anticipated Discharge Date Admission Date: November 18, 2020 Supervising Physician Co-Signing Physician Notes I have seen and examined the patient and have discussed the case with the provider above. I agree with the assessment and plan as stated. Pelvic ascites still present. Pain very much improved. Bowel sounds present on exam. Starting to have small BMs today. Ambulating in the hallways. NG tube has been removed and she is tolerating clears. Remains on the PPN. Cont current management with dc of PPN in am and advancement to regular diet. Cont TEDs and ambulation. Lasix if needed, however she is looking well at this time. DO Loida Clemens Pt was seen and examined in room 314-1. F/U S/p Appendectomy now with SBO and electrolyte derangements. Feeling much improved this morning. NG tube was removed and she is tolerated a clear liquid diet. Continues to have RUQ abd discomfort and distension but improving. Bowels are becoming softer. Had additional dose of lasix last evening and had a great response. Feels swelling is much improved. Denies f/c/s, chest pain, sob, n/v/d. She does c/o warmth to distal IV site to RUE. Review of Systems Review of Systems: All systems reviewed & are unremarkable except as noted in HPI & below Physical Exam Physical Exam: Gen: WD/WN, F, sitting up in chair eating breakfast, NAD, A&O x3 HEENT: Normocephalic, atraumatic, conjunctivae moist, sclerae anicteric, mucous membranes moist. Lung: Clear to Auscultation bilaterally with decreased BS at bases, no wheezes/rales/rhonchi Heart: Regular rate, regular rhythm, no murmurs, rubs, or gallops Abdomen:distended but Soft, incisions in tact, no erythema, diminished but present BS x 4, minimally tender Extremities: lower extremity edema much improved, RUE distal IV site warm, minimally pink, distal pulse in tact Skin: Warm, no rash, negative turgor. Results & Data Results & Data ([facility]) Vital Signs (Past 12 Hours) Vital Signs Temp Pulse Resp BP Pulse Ox 11/23/20 07:30 36.9 C 100 H 17 121/83 96 11/23/20 02:28 37.1 C 96 H 14 118/77 97 11/22/20 22:44 36.8 C 85 14 112/78 97 Laboratory Results BMP 11/23/20 05:30 Sodium 139 Potassium 4.0 Chloride 105 Carbon Dioxide 28 BUN 8 Creatinine 0.51 L Glucose 130 H Calcium 8.2 L Liver Function 11/23/20 Range/Units 05:30 Albumin 2.1 L (3.4-5.0) gm/dl Medications Administered Current Inpatient Medications Acetaminophen (Acetaminophen 325 Mg Tab) 650 mg PO Q6H PRN PRN Reason: Pain & Pre PT Stop: 12/18/20 12:09 Last Admin: 11/20/20 22:13 Dose: 650 mg Documented by: Famotidine (Famotidine 20 Mg Tab) 20 mg PO DAILY JINNY Stop: 12/18/20 14:44 Last Admin: 11/21/20 09:02 Dose: 20 mg Documented by: Dextrose (D10w) 1,000 mls @ 0 mls/hr IV .Q0M PRN PRN Reason: protocol (see label comments) Stop: 12/21/20 07:45 Lorazepam (Ativan) 0.5 mg in 1 mls @ 1 mls/min IV Q4RWA PRN PRN Reason: Anxiety Stop: 12/22/20 06:13 Nutrition (Parenteral) 2,400 (ml/ TPN BAG) 2,400 mls @ 100 mls/hr IV .Q24H JINNY; Protocol Stop: 11/24/20 15:59 Last Admin: 11/23/20 15:37 Dose: 100 mls/hr Documented by: Ibuprofen (Ibuprofen 200 Mg Tab) 200 mg PO Q6H PRN PRN Reason: pain/fever Stop: 12/23/20 17:09 Metoprolol Succinate (Metoprolol Succ 25mg Ext Rel Tab) 25 mg PO HS [facility] Stop: 12/22/20 20:59 Last Admin: 11/22/20 21:14 Dose: 25 mg Documented by: Metoprolol Succinate (Metoprolol Succ 25mg Ext Rel Tab) 12.5 mg PO QAM [facility] Stop: 12/22/20 08:59 Last Admin: 11/23/20 08:34 Dose: 12.5 mg Documented by: Miscellaneous Information (Tpn/Ppn Consult Pharmacy) 1 ea N/A UD PRN PRN Reason: Consult Stop: 12/21/20 07:42 Morphine Sulfate (Morphine Sulfate 2 Mg/Ml Carp) 2 mg IV Q6H PRN PRN Reason: severe pain Stop: 12/05/20 13:58 Ondansetron HCl (Ondansetron Inj 2 Mg/Ml 2 Ml Vial) 4 mg IV Q4H PRN PRN Reason: Nausea And Vomiting Stop: 12/18/20 12:09 Last Admin: 11/21/20 03:18 Dose: 4 mg Documented by: Potassium Chloride (Potassium Chloride 20 Meq/15 Ml Udc) 20 meq PO BID17 [facility] Stop: 12/19/20 08:59 Last Admin: 11/23/20 08:34 Dose: 20 meq Documented by:
--- NOTE | 2020-11-23 10:26 | Cardiology Progress Note ---
Date of Service November 23, 2020 Assessment & Plan (1) Small bowel obstruction due to adhesions: (2) S/P appy: (3) Inappropriate sinus tachycardia: (4) Electrolyte abnormality: Plan: Patient admitted for SBO, after having appendectomy last week. Multiple days of no PO nutrition with electrolyte imbalances. TPN started yesterday. SBO improving per CT scan earlier today. EKG today demonstrated NSR, with HR's around 90 BPM, similar to prior EKG's. HR's improved after resumption of oral metoprolol. Continue home dose on discharge. reassurance provided. Acceptable to use IV lasix with potassium supplementation to aid with abdominal ascites to maintain volume status. No further cardiac testing warranted at this time. Will sign off. Case discussed with Dr. Ortega. Admission and Anticipated Discharge Date Admission Date: November 18, 2020 Supervising Physician Co-Signing Physician Notes Of discussed the case with Ms. Shelby. I have reviewed the medical record and examined the patient. I agree with the plan. No additional cardiac testing is indicated and our service will sign off. Subjective Patient resting comfortably out of bed. NG tube removed. Tolerating clear liquids. Denies acute complaints. HR's controlled since resuming metoprolol. D enies chest pain or SOB. Abdominal pain improving. No edema. Review of Systems Review of Systems: All systems reviewed & are unremarkable except as noted in HPI & below Physical Exam Constitutional: WD/WN, vitals as above Eyes: PERRL, conjunctivae normal, anicteric sclerae ENMT: external ear and nose normal, oropharynx normal Neck: trachea midline, no thyromegaly Respiratory: normal respiratory effort, lungs clear to auscultation Cardiovascular: RRR, no murmur, no edema Gastrointestinal (Abdomen): Inspection/Auscultation: + abdomen distended; + abnormal bowel sounds (diminished) Percussion/Palpation: + abdomen tender (mild, diffuse tenderness) Musculoskeletal: no cyanosis or clubbing, extremities motor strength 5/5 Skin: no rashes, warm and dry Neurologic: PERRL, EOMI, accommodation nl, no face palsy, no dysarthria Psychiatric: A+Ox3, euthymic affect Results & Data ([facility]) Vital Signs (Past 12 Hours) Vital Signs Temp Pulse Resp BP Pulse Ox 11/23/20 07:30 36.9 C 100 H 17 121/83 96 11/23/20 02:28 37.1 C 96 H 14 118/77 97 11/22/20 22:44 36.8 C 85 14 112/78 97 Laboratory Results 11/23/20 11/23/20 11/22/20 Range/Units 05:51 05:30 23:58 Sodium 139 (136-145) mmol/L Potassium 4.0 (3.5-5.1) mmol/L Chloride 105 (98-107) mmol/L Carbon Dioxide 28 (21-32) mmol/L Anion Gap 6.0 (3-11) BUN 8 (7-18) mg/dl Creatinine 0.51 L (0.6-1.2) mg/dl Est Cr Clr Drug Dosing 127.6 ml/min Est GFR ( Amer) 135.5 ml/min Est GFR (Non-Af Amer) 116.9 ml/min BUN/Creatinine Ratio 15.6 (10-20) Glucose 130 H (70-99) mg/dl POC Glucose 126 H 130 H (70-99) mg/dl Calcium 8.2 L (8.5-10.1) mg/dl Phosphorus 3.4 D (2.5-4.9) mg/dl Magnesium 2.0 (1.8-2.4) mg/dl Albumin 2.1 L (3.4-5.0) gm/dl 11/22/20 11/22/20 Range/Units 18:27 12:03 Sodium (136-145) mmol/L Potassium (3.5-5.1) mmol/L Chloride (98-107) mmol/L Carbon Dioxide (21-32) mmol/L Anion Gap (3-11) BUN (7-18) mg/dl Creatinine (0.6-1.2) mg/dl Est Cr Clr Drug Dosing ml/min Est GFR ( Amer) ml/min Est GFR (Non-Af Amer) ml/min BUN/Creatinine Ratio (10-20) Glucose (70-99) mg/dl POC Glucose 110 H 112 H (70-99) mg/dl Calcium (8.5-10.1) mg/dl Phosphorus (2.5-4.9) mg/dl Magnesium (1.8-2.4) mg/dl Albumin (3.4-5.0) gm/dl Diagnostic Findings No new imaging Medications Administered Current Inpatient Medications Acetaminophen (Acetaminophen 325 Mg Tab) 650 mg PO Q6H PRN PRN Reason: Pain & Pre PT Stop: 12/18/20 12:09 Last Admin: 11/20/20 22:13 Dose: 650 mg Documented by: Famotidine (Famotidine 20 Mg Tab) 20 mg PO DAILY [facility] Stop: 12/18/20 14:44 Last Admin: 11/21/20 09:02 Dose: 20 mg Documented by: Dextrose (D10w) 1,000 mls @ 0 mls/hr IV .Q0M PRN PRN Reason: protocol (see label comments) Stop: 12/21/20 07:45 Lorazepam (Ativan) 0.5 mg in 1 mls @ 1 mls/min IV Q4RWA PRN PRN Reason: Anxiety Stop: 12/22/20 06:13 Nutrition (Parenteral) 2,400 (ml/ TPN BAG) 2,400 mls @ 100 mls/hr IV .Q24H [facility]; Protocol Stop: 11/23/20 15:59 Last Admin: 11/22/20 16:21 Dose: 100 mls/hr Documented by: Nutrition (Parenteral) 2,400 (ml/ TPN BAG) 2,400 mls @ 100 mls/hr IV .Q24H [facility]; Protocol Stop: 11/24/20 15:59 Metoprolol Succinate (Metoprolol Succ 25mg Ext Rel Tab) 25 mg PO HS [facility] Stop: 12/22/20 20:59 Last Admin: 11/22/20 21:14 Dose: 25 mg Documented by: Metoprolol Succinate (Metoprolol Succ 25mg Ext Rel Tab) [facility] [place] Stop: 12/22/20 08:59 Last Admin: 11/23/20 08:34 Dose: 12.5 mg Documented by: Miscellaneous Information (Tpn/Ppn Consult Pharmacy) 1 ea N/A UD PRN PRN Reason: Consult Stop: 12/21/20 07:42 Morphine Sulfate (Morphine Sulfate 2 Mg/Ml Carp) 2 mg IV Q6H PRN PRN Reason: severe pain Stop: 12/05/20 13:58 Ondansetron HCl (Ondansetron Inj 2 Mg/Ml 2 Ml Vial) 4 mg IV Q4H PRN PRN Reason: Nausea And Vomiting Stop: 12/18/20 12:09 Last Admin: 11/21/20 03:18 Dose: 4 mg Documented by: Potassium Chloride (Potassium Chloride 20 Meq/15 Ml Udc) 20 meq PO BID17 [facility] Stop: 12/19/20 08:59 Last Admin: 11/23/20 08:34 Dose: 20 meq Documented by:
--- NOTE | 2020-11-23 12:26 | Gastroenterology Progress Note ---
Date of Service November 23, 2020 Assessment & Plan (1) Small bowel obstruction due to adhesions: Plan: 45 year old female s/p appy admitted w/ diarrhea abd distention w/ small bowel obs on imaging. ? 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 CT w/ improving SBO. Today abd soft, good bowel sounds, minimal tenderness, improved since prior exams. Diet as per primary team Continue ABX E-Lytes management per primary team- improved today OP EGD/Colonoscopy Thank you for allowing us to participate in the care of this patient. Please call with any acute changes, questions or concerns. Please see addendum below with additional recommendation from my supervising physician. Admission and Anticipated Discharge Date Admission Date: November 18, 2020 Supervising Physician Co-Signing Physician Notes I have personally seen and examined the patient with Mary Kate Cooley PA-C. Her note reflects my exam and findings. I agree with her impression and plan. Conts to improve. Good bowel sounds. Had small BM. Matteo Quezada M.D. Subjective Patient seen and examined, chart reviewed. NG removed CT w/ improving bowel obstruction TPN started Pt states abd feels much better; pain and distention are improved Moving small loose stools No black or bloody stools Review of Systems Review of Systems: All systems reviewed & are unremarkable except as noted in HPI & below Physical Exam Constitutional: WD/WN, vitals as above (resting comfortably in bed) Respiratory: normal respiratory effort Cardiovascular: RRR, no murmur, no edema Gastrointestinal (Abdomen): +mild distention, minimal generalized tenderness, normal BS x 4 quadrants Skin: no rashes, warm and dry Psychiatric: A+Ox3, euthymic affect Results & Data ([facility]) Vital Signs (Past 12 Hours) Vital Signs Temp Pulse Resp BP Pulse Ox 11/23/20 07:30 36.9 C 100 H 17 121/83 96 11/23/20 02:28 37.1 C 96 H 14 118/77 97 Laboratory Results 11/23/20 11/23/20 11/22/20 Range/Units 05:51 05:30 23:58 Sodium 139 (136-145) mmol/L Potassium 4.0 (3.5-5.1) mmol/L Chloride 105 (98-107) mmol/L Carbon Dioxide 28 (21-32) mmol/L Anion Gap 6.0 (3-11) BUN 8 (7-18) mg/dl Creatinine 0.51 L (0.6-1.2) mg/dl Est Cr Clr Drug Dosing 127.6 ml/min Est GFR ( Amer) 135.5 ml/min Est GFR (Non-Af Amer) 116.9 ml/min BUN/Creatinine Ratio 15.6 (10-20) Glucose 130 H (70-99) mg/dl POC Glucose 126 H 130 H (70-99) mg/dl Calcium 8.2 L (8.5-10.1) mg/dl Phosphorus 3.4 D (2.5-4.9) mg/dl Magnesium 2.0 (1.8-2.4) mg/dl Albumin 2.1 L (3.4-5.0) gm/dl 11/22/20 Range/Units 18:27 Sodium (136-145) mmol/L Potassium (3.5-5.1) mmol/L Chloride (98-107) mmol/L Carbon Dioxide (21-32) mmol/L Anion Gap (3-11) BUN (7-18) mg/dl Creatinine (0.6-1.2) mg/dl Est Cr Clr Drug Dosing ml/min Est GFR ( Amer) ml/min Est GFR (Non-Af Amer) ml/min BUN/Creatinine Ratio (10-20) Glucose (70-99) mg/dl POC Glucose 110 H (70-99) mg/dl Calcium (8.5-10.1) mg/dl Phosphorus (2.5-4.9) mg/dl Magnesium (1.8-2.4) mg/dl Albumin (3.4-5.0) gm/dl Diagnostic Findings CTAP: FINDINGS: Small right and trace left pleural effusions are noted. Tip of nasogastric tube is within the distal body of the stomach. No pneumatosis, free air or portal venous gas is present. The liver, spleen, adrenal glands, left kidney and pancreas are unremarkable. There is no biliary or pancreatic ductal dilatation. A 1.5 cm wedge-shaped hypoenhancing focus within the upper pole of the right kidney is similar to CT of November 18, 2020. This is new since CT of November 14, 2020. Abdominal and pelvic ascites has increased since prior exam. There is persistent mesenteric infiltration. Small bowel dilatation has improved since exam of November 18, 2020. There is mild residual small bowel dilatation. Wall thickening of several jejunal loops is present. Oral contrast reaches the colon. The distal small bowel is relatively decompressed however no well-defined transition point is identified. The findings represent an improving small bowel obstruction. Major vasculature is patent. No fluid collection is identified to suggest an abscess. There are postoperative findings consistent with appendectomy. There is mild body wall edema. IMPRESSION: 1. Findings suggestive of an improving small bowel obstruction. Mild residual small bowel dilatation decreased since prior CT. Oral contrast reaches the colon. 2. Abdominal and pelvic ascites, increased since prior exam. Nonspecific wall thickening of several jejunal loops. No free air. No abscess. 3. Small right and trace left pleural effusions.
[2020-11-23] MEDS ORDERED: Custom Peripheral Pn 2,400 ML in TPN BAG 0 ML IV SCH (16:00)
[2020-11-23] MEDS ORDERED: IBUPROFEN 200 MG TAB PO PRN (17:10)
--- NOTE | 2020-11-24 07:10 | Ultrasound Report ---
ULTRASOUND RIGHT UPPER EXTREMITY VENOUS CLINICAL HISTORY: Right arm swelling. COMPARISON STUDY: No priors. TECHNIQUE: Real-time, grayscale, and color Doppler sonography of the deep veins of the right upper ex tremity is performed. Compression and augmentation were utilized. FINDINGS: There is no sonographic evidence of deep venous thrombosis identified in the right upper ex tremity. The right internal jugular, axillary, and brachial veins are patent and normally compressibl e. Normal venous waveforms and augmentation are seen within the right subclavian vein. The basilic ve in is clear. An IV catheter is noted in the antecubital fossa. There is occlusive superficial venous thrombus in the forearm within the cephalic vein. This extends from the mid forearm to the antecubita l fossa. This extends greater than 5 cm in length. The visualized radial and ulnar veins are patent. IMPRESSION: 1. There is no sonographic evidence of deep venous thrombosis identified in the right upper extremity . 2. There is occlusive superficial venous thrombus in the forearm involving the cephalic vein. See abo ve. ACT 112: Negative or not required by law. Electronically signed by: Nicholas Gorman M.D. 11/24/2020 7:08 AM
[2020-11-24 07:24] LABS: Albumin Level 2.3 gm/dl (3.4-5.0); BUN Creatinine Ratio 17.8 (10-20); Calcium 8.7 mg/dl (8.5-10.1); Creatinine Clr Calc Pharmacy 108.5 ml/min; Est GFR (African American) 128.5 ml/min; Est GFR (Non-African American) 110.9 ml/min; Magnesium 2.2 mg/dl (1.8-2.4); Phosphorus 3.7 mg/dl (2.5-4.9); Potassium 4.2 mmol/L (3.5-5.1)
--- NOTE | 2020-11-24 09:30 | Surgery Progress Note ---
Date of Service November 24, 2020 Assessment & Plan (1) SBO (small bowel obstruction): Plan: Patient appears to be doing much better She does have some thrombophlebitis in the right forearm No evidence of DVT Continuing on PPN today Advance diet to low fiber Albumin seems to be gradually increasing A.m. labs are stable Possible discharge 1 to 2 days Admission and Anticipated Discharge Date Admission Date: November 18, 2020 Results & Data ([facility]) Vital Signs (Past 12 Hours) Vital Signs Temp Pulse Pulse Resp BP Pulse Ox 11/24/20 07:03 36.7 C 92 H 16 96/66 L 97 11/24/20 03:51 37.4 C 98 H 16 125/84 97 11/23/20 23:52 36.9 C 97 H 14 111/74 96 PG Care Time/CCT Total # of Minutes Spent Total Time Spent with Patient: Total time spent is greater than 50% in coordination of care (as documented) at patient's floor/unit and/or counseling patient: Coding Level of Care Code None Diagnoses SBO (small bowel obstruction) K56.609
[2020-11-24] MEDS: METOPROLOL SUCC 25MG EXT REL TAB PO SCH ×2 (09:31→19:52)
[2020-11-24] MEDS: FAMOTIDINE 20 MG TAB PO SCH (09:31)
[2020-11-24] MEDS: POTASSIUM CHLORIDE 20 MEQ/15 ML UDC PO SCH ×2 (09:31→19:53)
--- NOTE | 2020-11-24 09:38 | Hospitalist Progress Note ---
Date of Service November 24, 2020 Assessment & Plan (1) Small bowel obstruction due to adhesions: Plan: 45 yr old F s/p Laparoscopic Appendectomy on 11/[address] Ramirez was d/c to home and readmitted due to N/V, abdominal pain, diarrhea and worsening distension res ulting in electrolyte derangements. Initial CT scanning KUB concerning for small bowel obstruction. Continues to have persistent liquid stool. General Surgery and GI on Board. NGT in place - 200cc of clear gastric fluid overnight. Repeat CT scan on 11/22 reveals findings suggestive of improving small bowel obstruction and mild residual small bowel dilatation. Oral contrast reaches the colon. Increased abdominal and pelvic ascites noted with nonspecific wall thickening of several jejunal loops. Small right and trace left pleural effusions. Discussed with surgery Dr. Buck, pt is improving and sx more likely attributed to Ileus. At this point does not appear surgery warranted. Rotovirus: negative Cdif: negative WBC Stool: negative Stool culture - negative on 11/15 Norovirus: pending E.Coli Shiga - pending Stool culture repeat : pending Continue IV ppn IV antibiotics discontinued per surgery as not warranted on there end - agree with this NG tube removed pt not requiring analgesia or antiemetics at this point appears SBO improving with contrast now reaching colon continues to have mesenteric inflammation likely resulting in secretory diarrhea pt requires continued hospitalization for IV ppn therapy D/C IV protonix in favor or oral pepcid pt tolerating clear liquid diet, advance diet per surgery recommendations Overall patient condition continues to improve, abdominal distention improving and bowel movements becoming more formed Electrolytes have remained stable over the past 2 days (2) Acute diarrhea: Plan: likely secretory in nature 2/2 to bowel wall edema and ileus pending stool studies as above improving (3) S/P appy: Plan: Postoperative incision site looks well and she is doing well from a pain perspective. She has not required any pain medications. (4) Acute thrombosis of right cephalic vein: Plan: US: There is occlusive superficial venous thrombus in the forearm involving the cephalic vein. continue warm compresses ibuprofen 200mg QID prn - encouraged use to help with inflammation discussed with IV team who will take a look at her proximal US guided site (5) Hypoalbuminemia: Plan: 2/2 to poor intake due to NPO status albumin improving to 2.3 continue ppn per surgery follow labs resulting in 3rd spacing and edema/ascites she did received lasix 20mg x 2 yesterday - much improved continue thigh highs/SCDS (6) Abdominal ascites: Plan: 2/2 to third spacing from hypoalbuminemia improving with IV lasix continue PPN (7) Electrolyte abnormality: Plan: K 4.2, Phos 3.7 Continue PPN Replace electrolytes as needed she is on daily KCl supplement, continue for now Daily BMP, Mg, Phos (8) Inappropriate sinus tachycardia: Plan: seen and evaluated by cardiology continue metoprolol succinate as prescribed (9) Migraine: Plan: Chronic Stable (10) DVT prophylaxis: Plan: SCD/ambulation Full code Disposition-to home when able to tolerate regular diet and PPN discontinued - per surgery team Pt was seen and examined in collaboration with Dr. Araujo, please see addendum Thank you for this consultation. We will follow the patient with you during their hospital stay. You can reach a member of the [facility] Hospitalist Team 25/09 via hospitalist role on tiger text. Please contact via [place] text with questions or concerns to Adry Lagunas (Aamir). Admission and Anticipated Discharge Date Admission Date: November 18, 2020 Supervising Physician Co-Signing Physician Notes Patient is seen and examined at bedside. No significant pain at surgical site. Tolerating diet. Denies nausea, vomiting, chest pain, dyspnea. Ambulating in hallway this morning. Diarrhea slowly improving. Also on PPN. On exam patient is moderately built and nourished, no apparent distress, normocephalic atraumatic, EOMI, lungs are clear to auscultation, normal breath sounds, S1-S2, no murmur, no pedal edema, abdomen soft, mildly distended,+ laparoscopic surgical incisions noted, normal bowel sounds, alert, awake, oriented, grossly no focal deficits. Small bowel obstruction due to ideations S/P laparoscopic appendectomy by Dr. Ramirez. Tolerating diet. On IV PPN. NG tube discontinued. Encourage ambulation. Appreciate GI, surgery input. Pain is controlled. I personally reviewed the record. Patient is interviewed and examined at bedside. Patient's care is coordinated with Adry Lagunas PA-C. Please refer to the documentation above for details of patient's presentation and for discussion of other issues. Subjective Pt was seen and examined in room 314-1. Follow up SBO. She admits to finally sleeping well last night. Notes continuous improvement in abdominal distension and passing flatus. Feels her stools are becoming more formed. She is ambulating about the unit and in her room. She continues to have intermittent RUQ pain, comes and goes, pin point, not affected by food and nothing makes better or worse. She continues with R forearm warmth and pain due to previous IV site. She denies f/c/s, chest pain, sob, hemoptysis, n/v/d. Review of Systems Review of Systems: All systems reviewed & are unremarkable except as noted in HPI & below Physical Exam Physical Exam: Gen: WD/WN, sitting up in bedside chair, NAD, A&O x3 HEENT: Normocephalic, atraumatic, conjunctivae moist, sclerae anicteric, mucous membranes moist. Lung: Clear to Auscultation bilaterally, no wheezes/rales/rhonchi Heart: Regular rate, regular rhythm, no murmurs, rubs, or gallops Abdomen: Abdominal distention much improved, soft, NT, ND +BS x 4, laparoscopic incisions healing well Extremities: No edema, thigh teds in place, right upper extremity ventral forearm with mild erythema, pain to palpation and warmth in setting of cephalic SVT Skin: Warm, no rash, negative turgor. Results & Data Results & Data ([facility]) Vital Signs (Past 12 Hours) Vital Signs Temp Pulse Pulse Resp BP Pulse Ox 11/24/20 07:03 36.7 C 92 H 16 96/66 L 97 11/24/20 03:51 37.4 C 98 H 16 125/84 97 11/23/20 23:52 36.9 C 97 H 14 111/74 96 Laboratory Results BMP 11/24/20 06:10 Sodium 139 Potassium 4.2 Chloride 107 Carbon Dioxide 25 BUN 11 Creatinine 0.60 Glucose 120 H Calcium 8.7 Liver Function 11/24/20 Range/Units 06:10 Albumin 2.3 L (3.4-5.0) gm/dl Diagnostic Findings Venous Doppler Study 11/24/20 00:02 ULTRASOUND RIGHT UPPER EXTREMITY VENOUS CLINICAL HISTORY: Right arm swelling. COMPARISON STUDY: No priors. TECHNIQUE: Real-time, grayscale, and color Doppler sonography of the deep veins of the right upper extremity is performed. Compression and augmentation were utilized. FINDINGS: There is no sonographic evidence of deep venous thrombosis identified in the right upper extremity. The right internal jugular, axillary, and brachial veins are patent and normally compressible. Normal venous waveforms and augmentation are seen within the right subclavian vein. The basilic vein is clear. An IV catheter is noted in the antecubital fossa. There is occlusive superficial venous thrombus in the forearm within the cephalic vein. This extends from the mid forearm to the antecubital fossa. This extends greater than 5 cm in length. The visualized radial and ulnar veins are patent. IMPRESSION: 1. There is no sonographic evidence of deep venous thrombosis identified in the right upper extremity. 2. There is occlusive superficial venous thrombus in the forearm involving the cephalic vein. See above. ACT 112: Negative or not required by law. Electronically signed by: Nicholas Gorman M.D. 11/24/2020 7:08 AM Medications Administered Current Inpatient Medications Acetaminophen (Acetaminophen 325 Mg Tab) 650 mg PO Q6H PRN PRN Reason: Pain & Pre PT Stop: 12/18/20 12:09 Last Admin: 11/20/20 22:13 Dose: 650 mg Documented by: Famotidine (Famotidine 20 Mg Tab) 20 mg PO DAILY [facility] Stop: 12/18/20 14:44 Last Admin: 11/21/20 09:02 Dose: 20 mg Documented by: Dextrose (D10w) 1,000 mls @ 0 mls/hr IV .Q0M PRN PRN Reason: protocol (see label comments) Stop: 12/21/20 07:45 Lorazepam (Ativan) 0.5 mg in 1 mls @ 1 mls/min IV Q4RWA PRN PRN Reason: Anxiety Stop: 12/22/20 06:13 Nutrition (Parenteral) 2,400 (ml/ TPN BAG) 2,400 mls @ 100 mls/hr IV .Q24H [facility]; Protocol Stop: 11/24/20 15:59 Last Admin: 11/23/20 15:37 Dose: 100 mls/hr Documented by: Ibuprofen (Ibuprofen 200 Mg Tab) 200 mg PO Q6H PRN PRN Reason: pain/fever Stop: 12/23/20 17:09 Metoprolol Succinate (Metoprolol Succ 25mg Ext Rel Tab) 25 mg PO HS [facility] Stop: 12/22/20 20:59 Last Admin: 11/23/20 19:34 Dose: 25 mg Documented by: Metoprolol Succinate (Metoprolol Succ 25mg Ext Rel Tab) 12.5 mg PO QAM [facility] Stop: 12/22/20 08:59 Last Admin: 11/23/20 08:34 Dose: 12.5 mg Documented by: Miscellaneous Information (Tpn/Ppn Consult Pharmacy) 1 ea N/A UD PRN PRN Reason: Consult Stop: 12/21/20 07:42 Morphine Sulfate (Morphine Sulfate 2 Mg/Ml Carp) 2 mg IV Q6H PRN PRN Reason: severe pain Stop: 12/05/20 13:58 Ondansetron HCl (Ondansetron Inj 2 Mg/Ml 2 Ml Vial) 4 mg IV Q4H PRN PRN Reason: Nausea And Vomiting Stop: 12/18/20 12:09 Last Admin: 11/21/20 03:18 Dose: 4 mg Documented by: Potassium Chloride (Potassium Chloride 20 Meq/15 Ml Udc) 20 meq PO BID17 [facility] Stop: 12/19/20 08:59 Last Admin: 11/23/20 19:34 Dose: 20 meq Documented by:
--- NOTE | 2020-11-24 13:11 | Gastroenterology Progress Note ---
Date of Service November 24, 2020 Assessment & Plan (1) Small bowel obstruction due to adhesions: Plan: 45 year old female s/p appy admitted w/ diarrhea abd distention w/ small bowel obs on imaging. ? related to adhesive disease given her history of endometriosis and lysis of adhesions in 2005. CT w/ improving SBO. Today abd soft, good bowel sounds, minimal tenderness, continues to improve since prior exams. Now tolerating some regular food. Diet as per primary team Continue ABX E-Lytes management per primary team OP EGD/Colonoscopy Thank you for allowing us to participate in the care of this patient. Please call with any acute changes, questions or concerns. Please see addendum below with additional recommendation from my supervising physician. Admission and Anticipated Discharge Date Admission Date: November 18, 2020 Supervising Physician Co-Signing Physician Notes I have personally seen and examined the patient with Mary Kate Cooley PA-C on 11/24/20. Her note reflects my exam and findings. I agree with her impression and plan. Continues to improve. Slowly advance diet. Matteo Quezada M.D. Subjective Patient seen and examined, chart reviewed patient feeling much better today. Tolerated some eggs for breakfast, popsicles overnight, finally feeling hungry and she slept well. Has very intermittent right upper quadrant discomfort. Stool is becoming more formed, she calls it semiformed, no black or bloody stools, fevers or chills, chest pain or shortness of breath. Has an occlusive superficial venous thrombus in the forearm involving the cephalic vein. Review of Systems Review of Systems: All systems reviewed & are unremarkable except as noted in HPI & below Physical Exam Constitutional: WD/WN, vitals as above (resting comfortably in bed) Respiratory: normal respiratory effort Cardiovascular: RRR, no murmur, no edema Gastrointestinal (Abdomen): Bowel sounds x4 quadrants, abdomen soft, nontender, nondistended Skin: no rashes, warm and dry Psychiatric: A+Ox3, euthymic affect Results & Data ([facility]) Vital Signs (Past 12 Hours) Vital Signs Temp Pulse Resp BP Pulse Ox 11/24/20 11:24 37.3 C 94 H 16 119/79 95 11/24/20 07:03 36.7 C 92 H 16 96/66 L 97 11/24/20 03:51 37.4 C 98 H 16 125/84 97 Laboratory Results 11/24/20 11/24/20 11/24/20 Range/Units 12:24 06:19 06:10 Sodium 139 (136-145) mmol/L Potassium 4.2 (3.5-5.1) mmol/L Chloride 107 (98-107) mmol/L Carbon Dioxide 25 (21-32) mmol/L Anion Gap 7.0 (3-11) BUN 11 (7-18) mg/dl Creatinine 0.60 (0.6-1.2) mg/dl Est Cr Clr Drug Dosing 108.5 ml/min Est GFR ( Amer) 128.5 ml/min Est GFR (Non-Af Amer) 110.9 ml/min BUN/Creatinine Ratio 17.8 (10-20) Glucose 120 H (70-99) mg/dl POC Glucose 116 H 120 H (70-99) mg/dl Calcium 8.7 (8.5-10.1) mg/dl Phosphorus 3.7 (2.5-4.9) mg/dl Magnesium 2.2 (1.8-2.4) mg/dl Albumin 2.3 L (3.4-5.0) gm/dl 11/23/20 11/23/20 Range/Units 23:51 17:13 Sodium (136-145) mmol/L Potassium (3.5-5.1) mmol/L Chloride (98-107) mmol/L Carbon Dioxide (21-32) mmol/L Anion Gap (3-11) BUN (7-18) mg/dl Creatinine (0.6-1.2) mg/dl Est Cr Clr Drug Dosing ml/min Est GFR ( Amer) ml/min Est GFR (Non-Af Amer) ml/min BUN/Creatinine Ratio (10-20) Glucose (70-99) mg/dl POC Glucose 124 H 125 H (70-99) mg/dl Calcium (8.5-10.1) mg/dl Phosphorus (2.5-4.9) mg/dl Magnesium (1.8-2.4) mg/dl Albumin (3.4-5.0) gm/dl
[2020-11-24 15:16] VITALS: O2SAT 98
[2020-11-24] MEDS ORDERED: Custom Peripheral Pn 2,400 ML in TPN BAG 0 ML IV SCH (16:00)
[2020-11-24 23:06] VITALS: TEMP 98.2
--- NOTE | 2020-11-25 06:59 | Surgery Progress Note ---
Date of Service November 25, 2020 Assessment & Plan (1) Ileus: Plan: Patient is to be tolerating diet well Excellent urine output Less abdominal distention Less swelling of the right arm from thrombophlebitis Currently on PPN I believe the patient is ready for discharge home She would like to see cardiology prior to discharge We will get her information for low fiber diet We can see her in the surgery clinic in 1 to 2 weeks Admission and Anticipated Discharge Date Admission Date: November 18, 2020 Results & Data ([facility]) Vital Signs (Past 12 Hours) Vital Signs Temp Pulse Pulse Resp BP Pulse Ox 11/24/20 23:06 36.8 C 107 H 18 117/75 98 11/24/20 19:51 96 H 117/81 PG Care Time/CCT Total # of Minutes Spent Total Time Spent with Patient: Total time spent is greater than 50% in coordination of care (as documented) at patient's floor/unit and/or counseling patient: Coding Level of Care Code None Diagnoses Ileus K56.7
[2020-11-25 07:51] LABS: BUN Creatinine Ratio 22.8 (10-20); Calcium 8.8 mg/dl (8.5-10.1); Est GFR (African American) 131.4 ml/min; Est GFR (Non-African American) 113.4 ml/min; Magnesium 2.3 mg/dl (1.8-2.4); Phosphorus 3.8 mg/dl (2.5-4.9); Potassium 3.9 mmol/L (3.5-5.1)
[2020-11-25 08:44] VITALS: BP 106/72; PULSE 86
[2020-11-25] MEDS: FAMOTIDINE 20 MG TAB PO SCH (09:02)
[2020-11-25] MEDS: METOPROLOL SUCC 25MG EXT REL TAB PO SCH (09:02)
[2020-11-25] MEDS: POTASSIUM CHLORIDE 20 MEQ/15 ML UDC PO SCH (09:02)
--- NOTE | 2020-11-25 09:18 | Discharge Summary (DS) ---
DATE OF DISCHARGE 11/25/2020. PRINCIPAL DIAGNOSES: Ileus with partial small bowel obstruction, dehydration, malnutrition. HISTORY OF PRESENT ILLNESS: The patient is a 45-year-old female who underwent laparoscopic appendect pola on 11/15/2020, which she tolerated well and then she was discharged home on 11/17/2020, presentin g back to the Emergency Room on 11/18/2020 with abdominal pain and bloating and felt to have an ileus with possible partial small bowel obstruction. The patient did develop significant distention. She never had significant emesis. She was having diarrhea apparently before surgery and then when she w as sent home a significant diarrhea. This did persist causing significant electrolyte imbalance and also her albumin was very low in the 2.0 range. She was placed on PPN and the GI team did see her. She was placed on antibiotics for suspected possible enteritis. She did not grow anything from her s tool specimens and she did not grow anything from her urine. Gradually, her antibiotics were stopped . The bloating did subside. Although, we were concerned at one point and did repeat her CAT scan wi th contrast. The contrast did flow into the colon without evidence of significant obstruction, but s he did have significant edema of her bowel. Gradually, she progressed advancing both diet and activi ty and felt stable for discharge on 11/25/2020. She is to follow up in the surgical clinic within 1- 2 weeks. Job ID: [id number]
--- NOTE | 2020-11-25 11:00 | Hospitalist Progress Note ---
Date of Service November 25, 2020 Assessment & Plan (1) Small bowel obstruction due to adhesions: Plan: 45 yr old F s/p Laparoscopic Appendectomy on 11/[address] Ramirez was d/c to home and readmitted due to N/V, abdominal pain, diarrhea and worsening distension res ulting in electrolyte derangements. Repeat CT abd/pelvis suggestive of an improving small bowel obstruction. Mild residual small bowel dilatation decreased since prior CT Tolerating low fiber diet, continues to have persistent liquid stool MG has been removed, IV abx discontinued, discontinuing TPN General Surgery and GI on Board Electrolytes stable Gen surg plans to discharge today with office follow up (2) Acute diarrhea: Plan: Likely secretory in nature 2/2 to bowel wall edema and ileus - improving Stool culture final and reviewed - wild. No further treatment (3) S/P appy: Plan: Postoperative incision site looks well and she is doing well from a pain perspective She has not required any pain medications. (4) Acute thrombosis of right cephalic vein: Plan: US: There is occlusive superficial venous thrombus in the forearm involving the cephalic vein Continue warm compresses, ibuprofen 200mg QID prn - encouraged use to help with inflammation Requested cardiology to evaluate site - agree with warm compresses, ibuprofen as needed (5) Hypoalbuminemia: Plan: 2/2 to poor intake due to NPO status albumin improving to 2.3 she did received lasix 20mg x 2 yesterday - much improved continue thigh highs/SCDS (6) Abdominal ascites: Plan: 2/2 to third spacing from hypoalbuminemia improving with IV lasix continue PPN (7) Electrolyte abnormality: Plan: K 4.2, Phos 3.7 she is on daily KCl supplement, continue for now Daily BMP, Mg, Phos all wnl (8) Inappropriate sinus tachycardia: Plan: seen and evaluated by cardiology continue metoprolol succinate as prescribed (9) Migraine: Plan: Chronic Stable (10) DVT prophylaxis: Plan: SCD/ambulation Full code Disposition-per surgery team Pt was seen and examined in collaboration with Dr. Araujo, please see addendum Thank you for this consultation. We will follow the patient with you during their hospital stay. You can reach a member of the [facility] Hospitalist Team 25/09 via hospitalist emily jaffe on tiger text. Admission and Anticipated Discharge Date Admission Date: November 18, 2020 Supervising Physician Co-Signing Physician Notes Patient is seen and examined at bedside. Its abdomen is less distended today. Diarrhea continues to improve. Minimal abdominal pain but controlled. Tolerating diet. Denies nausea, vomiting, chest pain, dyspnea. On exam patient is moderately built and nourished, no apparent distress, normocephalic a traumatic, EOMI, lungs are clear to auscultation, normal breath sounds, S1-S2, no murmur, no pedal edema, abdomen soft, less distended,+ laparoscopic surgical incisions noted, normal bowel sounds, alert, awake, oriented, grossly no focal deficits. Small bowel obstruction due to ideations S/P laparoscopic appendectomy by Dr. Ramirez. Tolerating diet. Appreciate GI, surgery input. Pain is controlled. Needs follow-up with surgery upon discharge. Advised to monitor right upper extremity for swelling erythema and pain given right cephalic vein thrombosis. Advised to consider repeating Doppler ultrasound if symptoms worsen and follow-up with PCP. I personally reviewed the record. Patient is interviewed and examined at bedside. Patient's care is coordinated with Dariela Belle PA-C. Please refer to the documentation above for details of patient's presentation and for discussion of other issues. Subjective Patient seem and examined in 314-1. Feeling better today. Tolerating regular diet, passing flatus and small amounts of semi-formed stool. Intermittent abdominal pain in RLQ improving each day. Inflammation on RUE lessened since but tea bag machine tender to touch. No fever, chills, chest pain, SOB or dysuria. Review of Systems Review of Systems: At least ten systems were reviewed and negative except as indicated in HPI above. Physical Exam Physical Exam: General Appearance: WD/WN, vitals as above, NAD, sitting up in bed, pleasant, conversing easily Head: normocephalic, atraumatic Eyes: normal inspection, PERRL, conjunctivae normal, anicteric sclerae ENT: external ear and nose normal, oropharynx normal Neck: normal visual inspection, trachea midline, no thyromegaly Respiratory: normal respiratory effort, lungs clear to auscultation, no wheeze, rales, rhonchi. No accessory muscle use Cardiovascular: regular rate, rhythm, no murmur, normal peripheral pulses, no BLE edema. Vessels: no JVD Chest: normal inspection of chest Abdomen/GI: +normal bowel sounds, soft, some TTP in RLQ, improved, no guarding, no hepatosplenomegaly Extremities/Musculoskeletal: + RUE with area erythema, TTP. No cyanosis or clubbing, extremities motor strength 5/5 Neurologic: PERRL, CN's II-XI intact bilaterally and moves all extremities Psychiatric: A+Ox3, euthymic affect Skin: no rashes, normal color, warm/dry Results & Data Results & Data ([facility]) Vital Signs (Past 12 Hours) Vital Signs Temp Pulse Resp BP BP Pulse Ox 11/25/20 08:43 86 106/72 11/25/20 07:23 36.8 C 88 16 106/74 98 11/24/20 23:06 36.8 C 107 H 18 117/75 98 Laboratory Results BMP 11/25/20 07:02 Sodium 139 Potassium 3.9 Chloride 106 Carbon Dioxide 28 BUN 13 Creatinine 0.56 L Glucose 119 H Calcium 8.8 Diagnostic Findings Chest/Abdomen X-ray 11/18/20 06:25 XR abdomen 2V w PA chest INDICATION: MN ^bloating, nausea. TECHNIQUE: 2 views of the abdomen were obtained. A single view of the chest was obtained. Comparison: Comparison is made to CT abdomen and pelvis 11/14/2020 FINDINGS: No lines and tubes are seen. The cardiomediastinal silhouette is normal. The lungs are clear. No evidence of pleural effusion or pneumothorax. The osseous structures are grossly unremarkable. Multiple cysts distended loops of small bowel are seen measuring up to 57 mm. No significant stool burden is visualized. IMPRESSION: Interval increase in gaseous dilation of multiple small bowel loops concerning for obstruction versus ileus. ACT 112: Negative or not required by law. Electronically signed by: Jose Ramon Brewer M.D. 11/18/2020 7:02 AM Abdomen/Pelvis CT 11/18/20 07:[address] WITH IV CONTRAST CT DOSE: 335.68 mGy.cm HISTORY: Acute generalized abdominal pain and vomiting with recent surgery abdominal pain, vomiting, recent surgery TECHNIQUE: Multiaxial CT images of the abdomen and pelvis were performed following the IV administration of 94 cc of Optiray, A dose lowering technique was utilized adhering to the principles of ALARA. COMPARISON STUDY: CT abdomen and pelvis 11/14/2020 FINDINGS: Trace pleural effusions. The imaged inferior cardiac chambers are unremarkable. Mild dependent subsegmental bibasilar atelectasis. No definitive pneumatosis or pneumoperitoneum. The spleen, pancreas and adrenal glands are unremarkable. Hyperdense material within the gallbladder lumen may represent sludge versus vicarious excretion of contrast. Unremarkable liver. Patency of the hepatic and portal veins. There is a focal area of decreased enhancement involving the superior pole right kidney on image 151 series 3 which is new from comparison measuring approximately 1.4 cm. Decompressed or bladder with wall thickening. Uterus and adnexa are unremarkable. Aorta and IVC are unremarkable. There is no adenopathy. Mild distal esophageal wall thickening. Air and fluid-filled moderately distended stomach. Air and fluid-filled dilated loops of small bowel measure up to 4.4 cm transition point is noted within the abdominal right lower quadrant on image 250 of series 3 with decompressed distal small bowel loops. Postoperative changes of appendectomy. Interloop edema with trace abdominal pelvic ascites. No drainable fluid collection. Several loops of small bowel within the abdominal right lower quadrant demonstrates circumferential wall thickening. Decompressed a sending colon. Unremarkable soft tissues. No acute fracture. IMPRESSION: 1. Postoperative changes of interval appendectomy. 2. Small bowel obstruction with transition point within the abdominal right lower quadrant. There is associated interloop edema with. Trace abdominal pelvic ascites. No drainable fluid collection. 3. Trace pleural effusions. ACT 112: Negative or not required by law. The above report was generated using voice recognition software. It may contain grammatical, syntax or spelling errors. Electronically signed by: Krishna Bailey M.D. 11/18/2020 9:46 AM Abdomen X-Ray 11/21/20 07:35 LEFT LATERAL DECUBITUS AND SUPINE AP RADIOGRAPHS OF THE ABDOMEN AND PELVIS CLINICAL HISTORY: h/o sbo/ ileus COMPARISON STUDY: Abdominal series and CT of the abdomen and pelvis November 18, 2020. FINDINGS: No free air is evident on the left lateral decubitus image. Moderate small bowel dilatation is noted. Small bowel loops measure up to 5 cm in caliber. Small bowel dilatation has decreased since exams of November 18, 2020. There is a paucity of colonic gas. IMPRESSION: 1. Findings suggestive of a persistent, but improving, small bowel obstruction. 2. No free air. ACT 112: Negative or not required by law. Electronically signed by: Flo Lamas M.D. 11/21/2020 8:25 AM Abdomen/Pelvis CT 11/22/20 06:16 CT OF THE ABDOMEN AND PELVIS WITH CONTRAST CLINICAL HISTORY: Small bowel obstruction. Appendectomy on November 15, 2020. COMPARISON STUDY: CT of the abdomen and pelvis November 18, 2020. Abdominal series November 21, 2020. TECHNIQUE: Following IV administration of 94 mL of Optiray, axial images of the abdomen and pelvis were obtained from the lung bases to the proximal femurs. Images were reviewed in the axial, sagittal, and coronal planes. IV contrast was administered without complication. Automated exposure control was utilized for the study. A dose lowering technique was utilized adhering to the principles of ALARA. Oral contrast was administered. CT DOSE: 339.31 mGy.cm FINDINGS: Small right and trace left pleural effusions are noted. Tip of nasogastric tube is within the distal body of the stomach. No pneumatosis, free air or portal venous gas is present. The liver, spleen, adrenal glands, left kidney and pancreas are unremarkable. There is no biliary or pancreatic ductal dilatation. A 1.5 cm wedge-shaped hypoenhancing focus within the upper pole of the right kidney is similar to CT of November 18, 2020. This is new since CT of November 14, 2020. Abdominal and pelvic ascites has increased since prior exam. There is persistent mesenteric infiltration. Small bowel dilatation has improved since exam of November 18, 2020. There is mild residual small bowel dilatation. Wall thickening of several jejunal loops is present. Oral contrast reaches the colon. The distal small bowel is relatively decompressed however no well-defined transition point is identified. The findings represent an improving small bowel obstruction. Major vasculature is patent. No fluid collection is identified to suggest an abscess. There are postoperative findings consistent with appendectomy. There is mild body wall edema. IMPRESSION: 1. Findings suggestive of an improving small bowel obstruction. Mild residual small bowel dilatation decreased since prior CT. Oral contrast reaches the colon. 2. Abdominal and pelvic ascites, increased since prior exam. Nonspecific wall thickening of several jejunal loops. No free air. No abscess. 3. Small right and trace left pleural effusions. ACT 112: Negative or not required by law. Electronically signed by: Flo Lamas M.D. 11/22/2020 9:26 AM Venous Doppler Study 11/24/20 00:02 ULTRASOUND RIGHT UPPER EXTREMITY VENOUS CLINICAL HISTORY: Right arm swelling. COMPARISON STUDY: No priors. TECHNIQUE: Real-time, grayscale, and color Doppler sonography of the deep veins of the right upper extremity is performed. Compression and augmentation were utilized. FINDINGS: There is no sonographic evidence of deep venous thrombosis identified in the right upper extremity. The right internal jugular, axillary, and brachial veins are patent and normally compressible. Normal venous waveforms and augmentation are seen within the right subclavian vein. The basilic vein is clear. An IV catheter is noted in the antecubital fossa. There is occlusive superficial venous thrombus in the forearm within the cephalic vein. This extends from the mid forearm to the antecubital fossa. This extends greater than 5 cm in length. The visualized radial and ulnar veins are patent. IMPRESSION: 1. There is no sonographic evidence of deep venous thrombosis identified in the right upper extremity. 2. There is occlusive superficial venous thrombus in the forearm involving the cephalic vein. See above. ACT 112: Negative or not required by law. Electronically signed by: Nicholas Gorman M.D. 11/24/2020 7:08 AM
--- NOTE | 2020-11-25 13:22 | Gastroenterology Progress Note ---
Date of Service November 25, 2020 Assessment & Plan (1) Small bowel obstruction due to adhesions: Plan: 45 year old female s/p appy admit w/ diarrhea abd distention w/ small bowel obs on imaging. ? related to adhesive disease given her history of endometriosis and lysis of adhesions in 2005. CT w/ improving SBO. Today abd soft, good bowel sounds, continues to improve since prior exams. Now tolerating regular food. Diet as per primary team Continue ABX OP EGD/Colonoscopy GI will sign off, please call with questions Thank you for allowing us to participate in the care of this patient. Please call with any acute changes, questions or concerns. Please see addendum below with additional recommendation from my supervising physician. Admission and Anticipated Discharge Date Admission Date: November 18, 2020 Subjective Patient seen and examined, chart reviewed. Patient continues to improve. Tolerating more of a diet, having semiformed BMs; small amts. Abdominal pain is largely resolved No melena or hematochezia, hematemesis, fevers or chills, chest pain or shortness of breath Review of Systems Review of Systems: All systems reviewed & are unremarkable except as noted in HPI & below Physical Exam Constitutional: WD/WN, vitals as above (resting comfortably in bed) Respiratory: normal respiratory effort Cardiovascular: RRR, no murmur, no edema Gastrointestinal (Abdomen): Inspection/Auscultation: abdomen normal to inspection; abdomen not distended Percussion/Palpation: abdomen soft; abdomen nontender Bowel sounds normal x4 quads Skin: no rashes, warm and dry Psychiatric: A+Ox3, euthymic affect Results & Data ([facility]) Vital Signs (Past 12 Hours) Vital Signs Temp Pulse Resp BP BP Pulse Ox 11/25/20 08:43 86 106/72 11/25/20 07:23 36.8 C 88 16 106/74 98 Laboratory Results 11/25/20 11/24/20 Range/Units 07:02 18:10 Sodium 139 (136-145) mmol/L Potassium 3.9 (3.5-5.1) mmol/L Chloride 106 (98-107) mmol/L Carbon Dioxide 28 (21-32) mmol/L Anion Gap 5.0 (3-11) BUN 13 (7-18) mg/dl Creatinine 0.56 L (0.6-1.2) mg/dl Est Cr Clr Drug Dosing 106.0 ml/min Est GFR ( Amer) 131.4 ml/min Est GFR (Non-Af Amer) 113.4 ml/min BUN/Creatinine Ratio 22.8 H (10-20) Glucose 119 H (70-99) mg/dl POC Glucose 124 H (70-99) mg/dl Calcium 8.8 (8.5-10.1) mg/dl Phosphorus 3.8 (2.5-4.9) mg/dl Magnesium 2.3 (1.8-2.4) mg/dl
== END 2020-11-25 13:30 | disposition home or self-care (01) | DRG 394 ==
LOC: ED 05:31 → 3E 12:11